=== PATIENT | female | born 1980 | race Caucasian/White ===

== ENCOUNTER 2019-04-07 21:40 | Inpatient (IN) | payer OTHER ==
--- NOTE | 2019-04-07 21:55 | PDOC ---
Attending Attestation - Resident Resident Name: Fouzia Méndez - ED Attending Attestation I have performed the following: I have examined & evaluated the patient, The case was reviewed & discussed with the resident, I agree w/resident's findings & plan - HPI HPI: 04/08/19 02:31 see resident hpi - Physicial Exam PE: 04/08/19 02:31 agree with resident exam - Medical Decision Making 04/08/19 02:31 38-year-old female with upper abdominal pain vomiting and diarrhea Due to abdominal tenderness and leukocytosis CT scan of the abdomen and pelvis was ordered Multiple attempts were made to perform a CT scan which patient adamantly refused to screaming at the top of her lungs stating leave me alone Patient states she is too scared to get the test done Right upper quadrant ultrasound confirms cholecystectomy state with no other significant abnormalities Due to persistent pain complaints, leukocytosis and inability to CT scan will admit for observation
[2019-04-07] MEDS ORDERED: ACETAMINOPHEN 1000 MG/100 ML VIAL (NON FORMULARY) IVPB ONE (21:59)
[2019-04-07] MEDS ORDERED: SODIUM CHLORIDE 1,000 ML IV STA ×2 (21:59→23:46)
[2019-04-07] MEDS ORDERED: FAMOTIDINE 20 MG/50 ML IVPB 20 MG/50 ML MG IVPB ONE ×2 (21:59→22:48)
[2019-04-07 22:35] VITALS: BMI 32.0
[2019-04-07] MEDS ORDERED: ONDANSETRON 4 MG/2 ML VIAL IVPB ONE (22:43)
[2019-04-07] MEDS ORDERED: ONDANSETRON 4 MG/2 ML VIAL ONE (22:48)
[2019-04-07] MEDS ORDERED: ACETAMINOPHEN INJECTION 100 ML IVPB ONE (22:48)
[2019-04-07 23:05] LABS: BASO % 0.5 % (0-2.0); EOS % 0.2 % (0-4.5); HEMATOCRIT 44.1 % (32.4-45.2); HEMOGLOBIN 14.6 GM/dL (10.7-15.3); LYMPH % 19.5 % (8-40); MCH 30.9 pg (25.7-33.7); MCHC 33.1 g/dl (32.0-36.0); MEAN CELL VOLUME 93.2 fl (80-96); MONO % 5.9 % (3.8-10.2); NEUT % 73.9 % (42.8-82.8); RBC 4.74 M/mm3 (3.60-5.2); RDW 13.7 % (11.6-15.6); WHITE BLOOD COUNT 16.6 K/mm3 (4.0-10.0)
--- NOTE | 2019-04-07 23:20 | PDOC ---
History of Present Illness - General Chief Complaint: Nausea/Vomiting Stated Complaint: ABD PAIN Time Seen by Provider: 04/07/19 21:52 History Source: Patient Exam Limitations: No Limitations - History of Present Illness Travel History: No Initial Comments: 04/07/19 23:03 38y F with PMH of Cholecystecomy, Appendectomy presenting to ED with complaints of nausea, vomiting and diarrhea that began today at around 11am. Pt states the pain is sharp, in the lower abdomen but is diffuse, associated with nausea and nbnbn emesis. She states that she has also been having loose stools and has been using the bathroom "a lot'. No blood in the stool. She denies recent travel , sick contacts, alcohol use, back pain, chest pain, headaches. She also endorses redness to her back which is slightly itchy; denies bug bites, history of stds, new medications. Denies sore throat, throat swelling. PMD: Kush Cole PMH: none PSH: see hpi Meds: none Allergies: reglan, toradol (hives) Social: denies Past History - Past Medical History Allergies/Adverse Reactions: Allergies Allergy/AdvReac Type Severity Reaction Status Date / Time metoclopramide HCl Allergy Intermediate Itching Verified 04/08/19 01:37 [From Reglan] ketorolac [From Toradol] Allergy Mild Hives Verified 04/08/19 01:37 Home Medications: Ambulatory Orders Ondansetron [Zofran *Odt*] 8 mg SL TID PRN #14 od.tablet 01/28/14 Vitamins (Sjr) - 1 tab PO DAILY 02/02/14 Oxycodone HCl/Acetaminophen [Percocet 5-325 mg Tablet -] 1 tab PO Q4H PRN Pantoprazole Sodium [Protonix] 40 mg PO DAILY 02/26/14 Anemia: No Asthma: No Cancer: No Cardiac Disorders: No CVA: No COPD: No CHF: No Dementia: No Diabetes: No GI Disorders: Yes (Hyperemesis gravidarum) Disorders: No HTN: No Hypercholesterolemia: No Kidney Stones: Yes Liver Disease: No Psychiatric Problems: Yes (DEPRESSION) Seizures: No Thyroid Disease: No - Surgical History Abdominal Surgery: Yes Appendectomy: Yes Cardiac Surgery: No Cholecystectomy: No Lung Surgery: No Neurologic Surgery: No Orthopedic Surgery: No - Reproductive History (#): 5 Para: 3 Cervical CA: No Dysfunctional Uterine Bleeding: No Ectopic : Yes Endometrial CA: No PID: No Polycystic Ovaries: No Therapeutic (s) & number: Yes (2) Tubal Ligation: No Spontaneous : 2 - Immunization History Immunization Up to Date: No - Psycho Social/Smoking Cessation Hx Smoking Status: No Smoking History: Never smoked Have you smoked in the past 12 months: No Number of Cigarettes Smoked Daily: 10 If you are a former smoker, when did you quit?: 08/2013 Cigars Per Day: 0 Information on smoking cessation initiated: No 'Breaking Loose' booklet given: 12/01/13 Hx Alcohol Use: No Drug/Substance Use Hx: No Substance Use Type: None Hx Substance Use Treatment: Yes Abd/GI Specific PMHX - Complaint Specific PMHX Hepatitis: No Pancreatitis: No Review of Systems - Review of Systems Constitutional: Yes: Chills. No: Fever HEENTM: No: Symptoms Reported Respiratory: Yes: Shortness of Breath Cardiac (ROS): No: Chest Pain, Lightheadedness, Palpitations, Syncope ABD/GI: Yes: See HPI : No: Symptoms Reported Musculoskeletal: No: Symptoms Reported Integumentary: Yes: See HPI Neurological: No: Symptoms reported *Physical Exam - Vital Signs Last Vital Signs Temp Pulse Resp BP Pulse Ox 98.5 F 67 20 144/105 H 98 04/07/19 22:29 04/07/19 22:29 04/07/19 22:29 04/07/19 22:29 04/07/19 22:29 - Physical Exam General Appearance: Yes: Appropriately Dressed, Severe Distress, Obese HEENT: positive: EOMI, MORIAH, Normal ENT Inspection Neck: positive: Trachea midline, Supple. negative: Lymphadenopathy (R), Lymphadenopathy (L) Respiratory/Chest: positive: Lungs Clear, Normal Breath Sounds. negative: Crackles, Rales, Rhonchi, Stridor, Wheezing Cardiovascular: positive: Regular Rhythm, Regular Rate, S1, S2. negative: Edema , JVD, Murmur Vascular Pulses: Dorsalis-Pedis (R): 2+, Doralis-Pedis (L): 2+ Gastrointestinal/Abdominal: positive: Normal Bowel Sounds, Soft, Tenderness ( diffuse, greatest in epigastrum). negative: Guarding, Rebound Musculoskeletal: negative: CVA Tenderness Extremity: positive: Normal Capillary Refill. negative: Swelling, Calf Tenderness, Erythema Integumentary: positive: Normal Color, Dry, Warm, Erythema (upper back and hands ) Neurologic: positive: mechanical supervisor II-XII NML intact, Fully Oriented, Alert, Normal Mood/ Affect, Normal Response, Motor Strength 10/26 ED Treatment Course - LABORATORY CBC & Chemistry Diagram: 04/07/19 22:50 04/07/19 22:50 Medical Decision Making - Medical Decision Making 04/08/19 00:05 38y F with pmh of cholecystectomy, appendectomy presenting to ED with complaints of abdominal pain, n/v/d that started today. vitals: wnl ddx includes but not limited to colitis, GE, , cholangitis, viral illness, atypical acs pt denies drug use. -cbc, cmp,lipase, lactate, ua, ucx, ekg, trop. -ofirmev, pepcid, fluids pt refused EKG. leukocytosis and elevated lactate; CTAP IV contrast screaming in pain, 4mg iv morphine. 04/08/19 04:[address] scan. Multiple attempts were made to have patient understand importance of study but patient kept refusing and seen leaving CT room. Ativan ordered but patient would not stay in Ct, cancelled ativan order. RAN wadsworth ordered: s/p cholecystectomy utox ordered. upon chart review, it was noted patient has history of opiate use. tox will show positive opiates because opiates were given here. could have Cannabinoid hyperemesis syndrome or opiate withdrawal utox positive for opiates and marijuana pt states she continues to be in pain. will order benadryl. will benefit from admission to control pain. 04/08/19 04:54 KUB, blood cultures and zosyn ordered for admitting team. Discharge - Discharge Information Problems reviewed: Yes Clinical Impression/Diagnosis: Intractable abdominal pain Nausea & vomiting Qualifiers: Vomiting type: unspecified Vomiting Intractability: unspecified Qualified Code( s): R11.2 - Nausea with vomiting, unspecified Condition: Stable - Admission Yes - Follow up/Referral - Patient Discharge Instructions - Post Discharge Activity
[2019-04-07 23:35] LABS: ALBUMIN 4.5 g/dl (3.4-5.0); ALK PHOS 80 U/L (45-117); ANION GAP 11 MMOL/L (8-16); BILIRUBIN,TOTAL 0.6 mg/dL (0.2-1); BLOOD UREA NITROGEN 8.8 mg/dL (7-18); CALCIUM 10.8 mg/dL (8.5-10.1); CHLORIDE 105 mmol/L (98-107); CO2 24 mmol/L (21-32); CREATININE 1.1 mg/dL (0.55-1.3); GLUCOSE,RANDOM 147 mg/dL (74-106); LIPASE 297 U/L (73-393); POTASSIUM 3.6 mmol/L (3.5-5.1); SGOT/AST 11 U/L (15-37); SGPT/ALT 15 U/L (13-61); SODIUM 140 mmol/L (136-145); TOT PROT 8.2 g/dl (6.4-8.2)
[2019-04-07 23:40] LABS: PLATELET ESTIMATE ADEQUATE
[2019-04-08] MEDS ORDERED: morphine CARPU-JECT 4 MG/1 ML DISP.SYRIN IVPUSH ONE (00:02)
[2019-04-08] MEDS ORDERED: morphine SULFATE 4 MG/ML VIAL ONE (00:19)
[2019-04-08] MEDS ORDERED: LORazepam 2 MG/ML SDV VIAL ONE (01:40)
[2019-04-08 03:06] LABS: EPI CELLS 0.9 /HPF (0-5/HPF); HYALINE CASTS 0 /lpf (0-8); URINE APPEARANCE CLEAR; URINE BACTERIA 2.9 /hpf (NEGATIVE); URINE BILIRUBIN NEGATIVE (NEGATIVE); URINE COLOR YELLOW; URINE GLUCOSE (UA) 1+ (NEGATIVE); URINE KETONE 1+ (NEGATIVE); URINE LEUK ESTERASE NEGATIVE (NEGATIVE); URINE NITRITE NEGATIVE (NEGATIVE); URINE PROTEIN 2+ (NEGATIVE); URINE RBC 1 /hpf (0-4); URINE UROBILINOGEN 0.2 mg/dL (0.2-1.0); URINE WBC 0 /hpf (0-5)
[2019-04-08 03:35] LABS: COCAINE, UR NEGATIVE ng/ml (CUTOFF=300); METHADONE, UR NEGATIVE ng/ml (CUTOFF=300); PHENCYCLIDINE,URINE NEGATIVE ng/ml (CUTOFF=25); URINE AMPHETAMINES NEGATIVE ng/ml (CUTOFF=500); URINE BARBITURATES NEGATIVE ng/ml (CUTOFF=200); URINE BENZODIAZEPINES NEGATIVE ng/ml (CUTOFF=200)
[2019-04-08 03:36] LABS: OPIATES, URI POSITIVE ng/ml (CUTOFF=300)
[2019-04-08] MEDS ORDERED: PIPERACILLIN/TAZOB 3.375 GM 3.375 GM in DEXTROSE 5%-WATER - 50 ML IVPB ONE (04:53)
--- NOTE | 2019-04-08 05:13 | PN ---
Teaching Attending Note Name of Resident: Nat Liao ATTENDING PHYSICIAN STATEMENT I saw and evaluated the patient. I reviewed the resident's note and discussed the case with the resident. I agree with the resident's findings and plan as documented. SUBJECTIVE: Patient is a 38 year old woman with PMH of Depression, Nephrolithiasis, Tobacco use, Anxiety, Polysubstance abuse (xanax, valium, opioids), Cholecystecomy and Appendectomy presenting to ER with complaints of nausea, vomiting and diarrhea that began today at around 11am. Patient states the pain is sharp, in the lower abdomen but is diffuse, associated with nausea and vomiting. She states that she has also been having loose stools and has been using the bathroom "a lot'. No blood in the stool. She denies recent travel, sick contacts, alcohol use, back pain, chest pain, headaches. Denies eating any stale food. She also has redness to her back which is slightly itchy; denies bug bites, history of STDs or recent new medications. Denies sore throat or throat swelling. While in the ER, multiple attempts were made to perform a CT scan which patient adamantly refused to screaming at the top of her lungs stating leave me alone - patient states she is too scared to get the test done. Right upper quadrant ultrasound confirms cholecystectomy with no other significant abnormalities. FH of DM and Heart disease. LMP was 2 weeks ago. OBJECTIVE: Alert Vital Signs Period Temp Pulse Resp BP Sys/Singh Pulse Ox Last 24 Hr 98.5 F 67 20 144/105 98 HEENT: No Jaundice, eye redness or discharge, PERRLA, EOMI. Normocephalic, atraumatic. External ears are normal and hearing is grossly intact. No nasal discharge. Neck: Supple, nontender. No palpable adenopathy or thyromegaly. No JVD Chest: Good effort. Clear to auscultation and percussion. Heart: Regular. No S3, rub or murmur Abdomen: Not distended, soft, diffuse tenderness and no HSM. No rebound or guarding. Normal bowel sounds. Ext: Peripheral pulses intact. No leg edema. Skin: Warm and dry. No petechiae, rash or ecchymosis. Neuro: Alert. Oriented x3. CN 2-12 grossly intact. Sensation grossly intact in all four extremities and DTR are symmetric. Psych: Erratic behaviour. Appropriate mood and affect. Poor insight. Denies suicidal or homicidal ideation. Home Medications Medication Instructions Recorded Ondansetron [Zofran *Odt*] 8 mg SL TID PRN #14 od.tablet 01/28/14 Vitamins (Sjr) - 1 tab PO DAILY 02/02/14 Oxycodone HCl/Acetaminophen 1 tab PO Q4H PRN 02/26/14 [Percocet 5-325 mg Tablet -] Pantoprazole Sodium [Protonix] 40 mg PO DAILY 02/26/14 Abnormal Lab Results 04/07/19 04/07/19 04/07/19 22:50 22:50 22:50 WBC 16.6 H Absolute Neuts (auto) 12.2 H Random Glucose 147 H Lactic Acid 2.7 H* Calcium 10.8 H AST 11 L Urine Protein Urine Glucose (UA) Urine Ketones Opiates Screen U Marijuana (THC) Screen 04/08/19 04/08/19 02:00 02:00 WBC Absolute Neuts (auto) Random Glucose Lactic Acid Calcium AST Urine Protein 2+ H Urine Glucose (UA) 1+ H Urine Ketones 1+ H Opiates Screen Positive A* U Marijuana (THC) Screen Positive A* ASSESSMENT AND PLAN: 1. Abdominal pain syndrome - Urine toxicology revealed opiates and marijuana. While clinical features may signal drug withdrawal syndrome or marijuana hyperemesis - she has had multiple ER visits with similar symptoms. However this time she also has leukocytosis and lactic acidosis, but is afebrile. Blood cultures being done and patient started on IV Zosyn. Will continue IV NS, trend lactic acid and use morphine for pain control. Get HbA1c. Patient refused abdomen/pelvis CT. Also refused EKG. KUB didnot reveal any acute abnormality. Consult GI and ID. Will continue to attempt to convince patient to get CT abdomen/pelvis to rule out mesenteric ischemia/colitis. Will repeat serum calcium after hydration, and if still high will get vitamin D level and PTH. Will repeat UA and if proteinuria persists will do nephrologic work up. Will continue comprehensive care for all of patients comorbid conditions. 2. Obesity Counseled on the risks associated with obesity. Will provide patient all the necessary assistance, counseling and positive reinforcement to facilitate weight loss. Consult protective signal operations supervisor. 3. Tobacco Use Counseled on risks associated with tobacco use. We will provide patient all the necessary assistance to facilitate smoking cessation and prescribe Nicotine patch. 4. Polysubstance abuse - Monitor closely for drug withdrawal. Implement seizure , fall and aspiration precautions. Counseled patient about abstaining from illicit drug use. Will consult air pollution specialist and refer to drug detox upon discharge. 5. DVT prophylaxis - Lovenox 40 mg SQ q 24 hours. 6. Advance directives - Full code
[2019-04-08] MEDS ORDERED: SODIUM CHLORIDE 1,000 ML IV SCH (06:00)
--- NOTE | 2019-04-08 06:08 | CONSULT ---
Consultation: REQUESTING PROVIDER: CONSULT REQUEST: We have been asked to medically evaluate this patient for ( specify). HISTORY OF PRESENT ILLNESS: REVIEW OF SYSTEMS: CONSTITUTIONAL: Absent: fever, chills, diaphoresis, generalized weakness, malaise, loss of appetite, weight change HEENT: Absent: rhinorrhea, nasal congestion, throat pain, throat swelling, difficulty swallowing, mouth swelling, ear pain, eye pain, visual changes CARDIOVASCULAR: Absent: chest pain, syncope, palpitations, irregular heart rate, lightheadedness , peripheral edema RESPIRATORY: Absent: cough, shortness of breath, dyspnea with exertion, orthopnea, wheezing, stridor, hemoptysis GASTROINTESTINAL: Absent: abdominal pain, abdominal distension, nausea, vomiting, diarrhea, constipation, melena, hematochezia GENITOURINARY: Absent: dysuria, frequency, urgency, hesitancy, hematuria, flank pain, genital pain MUSCULOSKELETAL: Absent: myalgia, arthralgia, joint swelling, back pain, neck pain SKIN: Absent: rash, itching, pallor HEMATOLOGIC/IMMUNOLOGIC: Absent: easy bleeding, easy bruising, lymphadenopathy, frequent infections ENDOCRINE: Absent: unexplained weight gain, unexplained weight loss, heat intolerance, cold intolerance NEUROLOGIC: Absent: headache, focal weakness or paresthesias, dizziness, unsteady gait, seizure, mental status changes, bladder or bowel incontinence PSYCHIATRIC: Absent: anxiety, depression, suicidal or homicidal ideation, hallucinations. PHYSICAL EXAMINATION Vital Signs - 24 hr 04/07/19 22:29 Temperature 98.5 F Pulse Rate 67 Respiratory 20 Rate Blood Pressure 144/105 H O2 Sat by Pulse 98 Oximetry (%) GENERAL: Awake, alert, and fully oriented, in no acute distress. HEAD: Normal with no signs of trauma. EYES: Pupils equal, round and reactive to light, extraocular movements intact, sclera anicteric, conjunctiva clear. No lid lag. EARS, NOSE, THROAT: Ears normal, nares patent, oropharynx clear without exudates. Moist mucous membranes. NECK: Normal range of motion, supple without lymphadenopathy, JVD, or masses. LUNGS: Breath sounds equal, clear to auscultation bilaterally. No wheezes, and no crackles. No accessory muscle use. HEART: Regular rate and rhythm, normal S1 and S2 without murmur, rub or gallop. ABDOMEN: Soft, nontender, not distended, normoactive bowel sounds, no guarding, no rebound, no masses. No hepatomegaly or splenomegaly. MUSCULOSKELETAL: Normal range of motion at all joints. No bony deformities or tenderness. No CVA tenderness. UPPER EXTREMITIES: 2+ pulses, warm, well-perfused. No cyanosis. No clubbing. Cap refill <2 seconds. No peripheral edema. LOWER EXTREMITIES: 2+ pulses, warm, well-perfused. No calf tenderness. No peripheral edema. NEUROLOGICAL: Cranial nerves II-XII intact. Normal speech. Normal gait. PSYCHIATRIC: Cooperative. Good eye contact. Appropriate mood and affect. SKIN: Warm, dry, normal turgor, no rashes or lesions noted. Laboratory Results - last 24 hr 04/07/19 04/07/19 04/07/19 22:50 22:50 22:50 WBC 16.6 H RBC 4.74 Hgb 14.6 Hct 44.1 D MCV 93.2 MCH 30.9 MCHC 33.1 RDW 13.7 Plt Count No Result Required. Absolute Neuts (auto) 12.2 H Neutrophils % 73.9 Lymphocytes % 19.5 D Monocytes % 5.9 Eosinophils % 0.2 Basophils % 0.5 Nucleated RBC % 0 Platelet Estimate Adequate Platelet Comment Slide scanned. Sodium 140 Potassium 3.6 Chloride 105 Carbon Dioxide 24 Anion Gap 11 BUN 8.8 Creatinine 1.1 Est GFR (CKD-EPI)AfAm 73.76 Est GFR (CKD-EPI)NonAf 63.64 Random Glucose 147 H Lactic Acid Calcium 10.8 H Total Bilirubin 0.6 AST 11 L ALT 15 Alkaline Phosphatase 80 Troponin I < 0.02 Total Protein 8.2 Albumin 4.5 Lipase 297 Serum , Qual Negative Urine Color Urine Appearance Urine pH Ur Specific [place] Urine Protein Urine Glucose (UA) Urine Ketones Urine Blood Urine Nitrite Urine Bilirubin Urine Urobilinogen Ur Leukocyte Esterase Urine WBC (Auto) Urine RBC (Auto) Urine Casts (Auto) U Epithel Cells (Auto) Urine Bacteria (Auto) Opiates Screen Methadone Screen Barbiturate Screen Phencyclidine Screen Ur Amphetamines Screen MDMA (Ecstasy) Screen Benzodiazepines Screen Cocaine Screen U Marijuana (THC) Screen 04/07/19 04/08/19 04/08/19 22:50 02:00 02:00 WBC RBC Hgb Hct MCV MCH MCHC RDW Plt Count Absolute Neuts (auto) Neutrophils % Lymphocytes % Monocytes % Eosinophils % Basophils % Nucleated RBC % Platelet Estimate Platelet Comment Sodium Potassium Chloride Carbon Dioxide Anion Gap BUN Creatinine Est GFR (CKD-EPI)AfAm Est GFR (CKD-EPI)NonAf Random Glucose Lactic Acid 2.7 H* Calcium Total Bilirubin AST ALT Alkaline Phosphatase Troponin I Total Protein Albumin Lipase Serum , Qual Urine Color Yellow Urine Appearance Clear Urine pH 8.0 Ur Specific [place] 1.011 Urine Protein 2+ H Urine Glucose (UA) 1+ H Urine Ketones 1+ H Urine Blood Trace Urine Nitrite Negative Urine Bilirubin Negative Urine Urobilinogen 0.2 Ur Leukocyte Esterase Negative Urine WBC (Auto) 0 Urine RBC (Auto) 1 Urine Casts (Auto) 0 U Epithel Cells (Auto) 0.9 Urine Bacteria (Auto) 2.9 Opiates Screen Positive A* Methadone Screen Negative Barbiturate Screen Negative Phencyclidine Screen Negative Ur Amphetamines Screen Negative MDMA (Ecstasy) Screen Negative Benzodiazepines Screen Negative Cocaine Screen Negative U Marijuana (THC) Screen Positive A* Active Medications Generic Name Dose Route Start Last Admin Trade Name Freq PRN Reason Stop Dose Admin Enoxaparin Sodium 40 mg 04/08/19 10:00 Lovenox - SQ DAILY MINA Sodium Chloride 1,000 mls @ 100 mls/hr 04/08/19 06:00 Normal Saline - IV ASDIR MINA Piperacillin Sod/Tazobactam 50 mls @ 100 mls/hr 04/08/19 13:00 Sod 3.375 gm/ Dextrose IVPB Q8H-IV MINA Protocol ASSESSMENT/PLAN: Dispo: We will continue to follow the patient. Thank you for this consultative opportunity. Visit type - Emergency Visit Emergency Visit: Yes Care time: The patient presented to the Emergency Department on the above date and was hospitalized for further evaluation of their emergent condition. - New Patient This patient is new to me today: Yes Date on this admission: 04/08/19 - Critical Care Critical Care patient: No ATTENDING PHYSICIAN STATEMENT I saw and evaluated the patient. I reviewed the resident's note and discussed the case with the resident. I agree with the resident's findings and plan as documented. SUBJECTIVE: OBJECTIVE: ASSESSMENT AND PLAN:
--- NOTE | 2019-04-08 06:33 | HP ---
CHIEF COMPLAINT: PCP: Dr. Kush Cole HISTORY OF PRESENT ILLNESS: 38 y/o/f with PMHx of nephrolithiasis, polysubstance abuse, psych disorder here for abd pain and vomiting. She states her pain started at 11am yesterday while she was waiting for the bus. She denies any inciting trauma. She has vomiting multiple times at home and in the ED, all with no blood, no bile. She states her abd pain is in the suprapubic region and sharp. She denies any diarrhea, states she had a normal bowel movement yesterday morning, no blood in the stool. She had a similar episode of vomiting and abd pain about a month ago and states she was seen in the [facility] ED and discharged after pain management. She denies any chest pain, SOB, fever, dysuria, cough, sore throat. During the course of the interview patient started to complain of extreme pain in her right leg, when I left the room to speak with ED staff she calmed down. On returning the the room patient started to complain of pain in her left leg, again calmed down after I left the room. Subsequently, on returning to the room patient started to complain she immediately had to go urinate and complained of severe abd pain but again calmed down after I left the room. ER course was notable for: (1) Patient refused EKG (2) Patient refused CT scan Recent Travel: denies PAST MEDICAL HISTORY: nephrolithiasis, polysubstance abuse, psych disorder PAST SURGICAL HISTORY: cholecystectomy, appendectomy, Social History: Smoking: denies Alcohol: denies Drugs: Marijuana multiple times a week, denies other drugs Recently moved to [place] from [place], living with her sister currently, unemployed, previously worked in [employer] - 2 weeks ago FamHx: denies significant family history, states parents are healthy Allergies metoclopramide HCl [From Reglan] Allergy (Intermediate, Verified 04/08/19 01:37) Itching ketorolac [From Toradol] Allergy (Mild, Verified 04/08/19 01:37) Hives HOME MEDICATIONS: Home Medications Medication Instructions Recorded Ondansetron [Zofran *Odt*] 8 mg SL TID PRN #14 od.tablet 01/28/14 Vitamins (Sjr) - 1 tab PO DAILY 02/02/14 Oxycodone HCl/Acetaminophen 1 tab PO Q4H PRN 02/26/14 [Percocet 5-325 mg Tablet -] Pantoprazole Sodium [Protonix] 40 mg PO DAILY 02/26/14 REVIEW OF SYSTEMS Constitutional: chills denies fever, weakness HEENT: denies neck pain, blurry vision Cardio: denies palpitations, chest pain Resp: denies wheezing, SOB GI: abd pain, nausea, vomiting denies diarrhea, constipation : denies dysuria, hematuria MSK: denies joint pain, neck pain SKIN: denies rashes Neuro: denies loss of consciousness, headache, dizziness, numbness PHYSICAL EXAMINATION Vital Signs - 24 hr 04/07/19 22:29 Temperature 98.5 F Pulse Rate 67 Respiratory 20 Rate Blood Pressure 144/105 H O2 Sat by Pulse 98 Oximetry (%) GENERAL: moderate distress. Awake, alert, and fully oriented HEAD: Normal with no signs of trauma. EYES: PERRL, EOMI EARS, NOSE, THROAT: Dry Mucous membranes. Ears normal, nares patent, oropharynx clear without exudates NECK: Normal range of motion, supple without lymphadenopathy, JVD, or masses. LUNGS: Breath sounds equal, clear to auscultation bilaterally. No wheezes, and no crackles. No accessory muscle use. HEART: Regular rate and rhythm, normal S1 and S2 without murmur, rub or gallop. ABDOMEN: RUQ tenderness to palpation, Soft, not distended, normoactive bowel sounds, no guarding, no rebound, no masses. No hepatomegaly or splenomegaly. MUSCULOSKELETAL: Left CVA tenderness. Normal range of motion at all joints. No bony deformities or tenderness. UPPER EXTREMITIES: 2+ pulses, warm, well-perfused. No cyanosis. No clubbing. No peripheral edema. LOWER EXTREMITIES: 2+ pulses, warm, well-perfused. No calf tenderness. No peripheral edema. NEUROLOGICAL: Normal speech. Normal gait. PSYCHIATRIC: Anxious, agitated SKIN: Warm, dry, normal turgor, no rashes or lesions noted, normal capillary refill. Laboratory Results - last 24 hr 04/07/19 04/07/19 04/07/19 22:50 22:50 22:50 WBC 16.6 H RBC 4.74 Hgb 14.6 Hct 44.1 D MCV 93.2 MCH 30.9 MCHC 33.1 RDW 13.7 Plt Count No Result Required. Absolute Neuts (auto) 12.2 H Neutrophils % 73.9 Lymphocytes % 19.5 D Monocytes % 5.9 Eosinophils % 0.2 Basophils % 0.5 Nucleated RBC % 0 Platelet Estimate Adequate Platelet Comment Slide scanned. Sodium 140 Potassium 3.6 Chloride 105 Carbon Dioxide 24 Anion Gap 11 BUN 8.8 Creatinine 1.1 Est GFR (CKD-EPI)AfAm 73.76 Est GFR (CKD-EPI)NonAf 63.64 Random Glucose 147 H Lactic Acid Calcium 10.8 H Total Bilirubin 0.6 AST 11 L ALT 15 Alkaline Phosphatase 80 Troponin I < 0.02 Total Protein 8.2 Albumin 4.5 Lipase 297 Serum , Qual Negative Urine Color Urine Appearance Urine pH Ur Specific [place] Urine Protein Urine Glucose (UA) Urine Ketones Urine Blood Urine Nitrite Urine Bilirubin Urine Urobilinogen Ur Leukocyte Esterase Urine WBC (Auto) Urine RBC (Auto) Urine Casts (Auto) U Epithel Cells (Auto) Urine Bacteria (Auto) Opiates Screen Methadone Screen Barbiturate Screen Phencyclidine Screen Ur Amphetamines Screen MDMA (Ecstasy) Screen Benzodiazepines Screen Cocaine Screen U Marijuana (THC) Screen 04/07/19 04/08/19 04/08/19 22:50 02:00 02:00 WBC RBC Hgb Hct MCV MCH MCHC RDW Plt Count Absolute Neuts (auto) Neutrophils % Lymphocytes % Monocytes % Eosinophils % Basophils % Nucleated RBC % Platelet Estimate Platelet Comment Sodium Potassium Chloride Carbon Dioxide Anion Gap BUN Creatinine Est GFR (CKD-EPI)AfAm Est GFR (CKD-EPI)NonAf Random Glucose Lactic Acid 2.7 H* Calcium Total Bilirubin AST ALT Alkaline Phosphatase Troponin I Total Protein Albumin Lipase Serum , Qual Urine Color Yellow Urine Appearance Clear Urine pH 8.0 Ur Specific [place] 1.011 Urine Protein 2+ H Urine Glucose (UA) 1+ H Urine Ketones 1+ H Urine Blood Trace Urine Nitrite Negative Urine Bilirubin Negative Urine Urobilinogen 0.2 Ur Leukocyte Esterase Negative Urine WBC (Auto) 0 Urine RBC (Auto) 1 Urine Casts (Auto) 0 U Epithel Cells (Auto) 0.9 Urine Bacteria (Auto) 2.9 Opiates Screen Positive A* Methadone Screen Negative Barbiturate Screen Negative Phencyclidine Screen Negative Ur Amphetamines Screen Negative MDMA (Ecstasy) Screen Negative Benzodiazepines Screen Negative Cocaine Screen Negative U Marijuana (THC) Screen Positive A* ASSESSMENT/PLAN: 38 y/o/f with PMHx of nephrolithiasis, polysubstance abuse, psych disorder here for abd pain and vomiting since yesterday. 1)Abdominal pain - concern for ischemic vs. obstructive vs. infectious cause -Lactic acid elevated 2.7 -> 2.5, trend -WBC elevated at 16.6, trend -Consider speaking with patient and attempting CT abd&pelvis w/contrast again -Renal U/S ordered to r/o nephrolithiasis -Zosyn Q8 -NPO -UA not impressive for UTI 2)Anxiety/Agitation -Pysch consult placed, Dr. Parikh -Utox positive for Marijuana and Opiates. -Utox obtained after opiates given in ED, patient denies opiate use however, has history of polysubstance abuse 3)Prophylaxis -Lovenox 4)FEN -NS@100mls/hr -NPO 5)Disposition -admitted to med surg Visit type - Emergency Visit Emergency Visit: Yes ED Registration Date: 04/08/19 Care time: The patient presented to the Emergency Department on the above date and was hospitalized for further evaluation of their emergent condition. - New Patient This patient is new to me today: Yes Date on this admission: 04/08/19 - Critical Care Critical Care patient: No ATTENDING PHYSICIAN STATEMENT I saw and evaluated the patient. I reviewed the resident's note and discussed the case with the resident. I agree with the resident's findings and plan as documented. SUBJECTIVE: OBJECTIVE: ASSESSMENT AND PLAN:
[2019-04-08] MEDS ORDERED: PIPERACILLIN/TAZOB 3.375 GM 3.375 GM/50 ML BAG IVPB ONE (06:34)
[2019-04-08] MEDS ORDERED: ACETAMINOPHEN 1000 MG/100 ML VIAL (NON FORMULARY) IVPB PRN (07:46)
[2019-04-08 08:25] LABS: HEMATOCRIT 44.3 % (32.4-45.2); HEMOGLOBIN 14.9 GM/dL (10.7-15.3); MCH 31.5 pg (25.7-33.7); MCHC 33.7 g/dl (32.0-36.0); MEAN CELL VOLUME 93.6 fl (80-96); MEAN PLT VOLUME 8.8 fl (7.5-11.1); PLATELET COUNT 336 K/MM3 (134-434); RBC 4.73 M/mm3 (3.60-5.2); RDW 13.6 % (11.6-15.6); WHITE BLOOD COUNT 13.2 K/mm3 (4.0-10.0)
[2019-04-08] MEDS ORDERED: ACETAMINOPHEN 325 MG TABLET (FP) PO PRN (09:00)
[2019-04-08 09:04] LABS: ANION GAP 14 MMOL/L (8-16); BLOOD UREA NITROGEN 7.6 mg/dL (7-18); CALCIUM 9.6 mg/dL (8.5-10.1); CHLORIDE 105 mmol/L (98-107); CO2 18 mmol/L (21-32); GLUCOSE,RANDOM 134 mg/dL (74-106); POTASSIUM 3.5 mmol/L (3.5-5.1); SODIUM 137 mmol/L (136-145)
[2019-04-08] MEDS ORDERED: clonazePAM 0.5 MG TABLET ONE (09:04)
[2019-04-08] MEDS ORDERED: clonazePAM 0.5 MG TABLET PO ONE (09:15)
[2019-04-08] MEDS ORDERED: PIPERACILLIN/TAZOB 3.375 GM 3.375 GM in DEXTROSE 5%-WATER - 50 ML IVPB SCH ×2 (10:00→13:00)
[2019-04-08] MEDS ORDERED: ENOXAPARIN NA (PORCINE) 40 MG/0.4 ML DISP.SYRIN SQ SCH (10:00)
[2019-04-08 10:36] VITALS: BP 162/96; PULSE 82; TEMP 98.7
[2019-04-08] MEDS ORDERED: HALOPERIDOL LACTATE 5 MG/ML IM ONE (12:38)
[2019-04-08] MEDS ORDERED: HALOPERIDOL LACTATE 5 MG/ML ONE (12:43)
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
== END 2019-04-08 13:15 | disposition home or self-care (01) | DRG 249 ==
LOC: JER 21:40 → JERBED 04-08 04:22
PROVIDERS: ADMIT Internal Medicine; ATTEND Internal Medicine
DX: R11.15 Cyclical vomiting syndrome unrelated to migraine (principal); F41.8 Other specified anxiety disorders; F12.20 Cannabis dependence, uncomplicated; F11.20 Opioid dependence, uncomplicated; E87.2 Acidosis; E66.9 Obesity, unspecified; Z68.33 Body mass index [BMI] 33.0-33.9, adult; R10.9 Unspecified abdominal pain; N20.0 Calculus of kidney; D72.829 Elevated white blood cell count, unspecified; R45.1 Restlessness and agitation; E83.52 Hypercalcemia
CPT/HCPCS: 36415; 71045-TC-FY; 74018-TC-FY; 74176-TC; 76705-TC; 76775-TC; 80048; 80053; 80307; 81003; 82330; 83036; 83605; 83690; 83970; 84443; 84484; 84703; 85025; 85027; 87040; 87086; 99283-25; J0131; J7030

== ENCOUNTER 2019-07-12 08:38 | Emergency (ER) | payer OTHER ==
[2019-07-12] MEDS ORDERED: morphine SULFATE 4 MG/ML VIAL ONE (08:46)
[2019-07-12] MEDS ORDERED: ONDANSETRON 4 MG/2 ML VIAL ONE (08:47)
[2019-07-12] MEDS ORDERED: morphine CARPU-JECT 4 MG/1 ML DISP.SYRIN IVPUSH ONE (08:52)
[2019-07-12] MEDS ORDERED: SODIUM CHLORIDE 1,000 ML IV STA ×2 (08:52→10:30)
[2019-07-12] MEDS ORDERED: ONDANSETRON 4 MG/2 ML VIAL IVPUSH ONE (08:52)
--- NOTE | 2019-07-12 08:59 | PDOC ---
History of Present Illness - General Chief Complaint: Back Pain Stated Complaint: PAIN - History of Present Illness Initial Comments: 07/12/19 08:53 Ms. Waldrop is a 38 yo female w/ pmh of appendectomy, cholecystectomy, anxiety, unspecified psychiatric disorder, and kidney stone 10 years ago who presents for evaluation of L sided back pain that she rates 10/10. Patient reports symptoms started last night however have progressively gotten worse throughout the night. Patient reports symptoms feel like her previous kidney stone. Denies any other symptoms at this time. The patient denies chest pain, shortness of breath, headache and dizziness. Denies fever, chills, nausea, vomit, diarrhea and constipation. Denies dysuria, frequency, urgency and hematuria. Past History - Past Medical History Allergies/Adverse Reactions: Allergies Allergy/AdvReac Type Severity Reaction Status Date / Time metoclopramide HCl Allergy Intermediate Itching Verified 07/12/19 08:47 [From Reglan] ketorolac [From Toradol] Allergy Mild Hives Verified 07/12/19 08:47 Home Medications: Ambulatory Orders Sulfamethoxazole/Trimethoprim [Bactrim Ds -] 1 tab PO BID #14 tablet 07/12/19 Anemia: No Asthma: No Cancer: No Cardiac Disorders: No CVA: No COPD: No CHF: No Dementia: No Diabetes: No GI Disorders: Yes (Hyperemesis gravidarum) Disorders: No HTN: No Hypercholesterolemia: No Kidney Stones: Yes Liver Disease: No Psychiatric Problems: Yes (DEPRESSION) Seizures: No Thyroid Disease: No - Surgical History Abdominal Surgery: Yes Appendectomy: Yes Cardiac Surgery: No Cholecystectomy: No Lung Surgery: No Neurologic Surgery: No Orthopedic Surgery: No - Reproductive History (#): 5 Para: 3 Cervical CA: No Dysfunctional Uterine Bleeding: No Ectopic : Yes Endometrial CA: No PID: No Polycystic Ovaries: No Therapeutic (s) & number: Yes (2) Tubal Ligation: No Spontaneous : 2 - Immunization History Immunization Up to Date: No - Psycho Social/Smoking Cessation Hx Smoking Status: No Smoking History: Never smoked Have you smoked in the past 12 months: No Number of Cigarettes Smoked Daily: 10 If you are a former smoker, when did you quit?: 08/2013 Cigars Per Day: 0 'Breaking Loose' booklet given: 12/01/13 Hx Alcohol Use: No Drug/Substance Use Hx: No Substance Use Type: None Hx Substance Use Treatment: Yes Review of Systems - Review of Systems Comments:: 07/12/19 08:56 GENERAL/CONSTITUTIONAL: No fever or chills. No weakness. HEAD, EYES, EARS, NOSE AND THROAT: No change in vision. No ear pain or discharge. No sore throat. CARDIOVASCULAR: No chest pain or shortness of breath RESPIRATORY: No cough, wheezing, or hemoptysis. GASTROINTESTINAL: No nausea, vomiting, diarrhea or constipation. GENITOURINARY: No dysuria, frequency, or change in urination. MUSCULOSKELETAL: +Lower left back pain as described. No joint or muscle swelling or pain. No neck pain. SKIN: No rash NEUROLOGIC: No headache, vertigo, loss of consciousness, or change in strength/ sensation. ENDOCRINE: No increased thirst. No abnormal weight change HEMATOLOGIC/LYMPHATIC: No anemia, easy bleeding, or history of blood clots. ALLERGIC/IMMUNOLOGIC: No hives or skin allergy. *Physical Exam - Physical Exam 07/12/19 08:56 GENERAL: Awake, alert, and fully oriented, in no acute distress HEAD: No signs of trauma, normocephalic, atraumatic EYES: PERRLA, EOMI, sclera anicteric, conjunctiva clear ENT: Auricles normal inspection, hearing grossly normal, nares patent, oropharynx clear without exudates. Moist mucosa NECK: Normal ROM, supple, no lymphadenopathy, JVD, or masses LUNGS: No distress, speaks full sentences, clear to auscultation bilaterally HEART: Regular rate and rhythm, normal S1 and S2, no murmurs, rubs or gallops, peripheral pulses normal and equal bilaterally. ABDOMEN: +L CVA tenderness. Soft, normoactive bowel sounds. No guarding, no rebound. No masses EXTREMITIES: Normal inspection, Normal range of motion, no edema. No clubbing or cyanosis. NEUROLOGICAL: Cranial nerves II through XII grossly intact. Normal speech, normal gait, no focal sensorimotor deficits SKIN: Warm, Dry, normal turgor, no rashes or lesions noted. ED Treatment Course - LABORATORY CBC & Chemistry Diagram: 07/12/19 08:33 07/12/19 08:33 Medical Decision Making - Medical Decision Making 07/12/19 08:58 Ms. Waldrop is a 38 yo female w/ pmh as described who presents for evaluation of symptoms concerning for UTI vs. nephrolithiasis vs. pyelonephritis. Patient evaluation started with CBC/CMP/UA/Urine Cx/serum preg. 07/12/19 13:13 CT negative for acute process. Patient noted to have UTI as below with corresponding elevated WBC. Will treat for pyelonephritis given patient's concurrent flank pain. Patient started on oral ABX in ED. Discharging to home. Laboratory Results - last 24 hr 07/12/19 07/12/19 07/12/19 08:33 08:33 08:33 WBC 15.4 H RBC 4.95 Hgb 15.3 Hct 45.5 H MCV 91.8 MCH 30.8 MCHC 33.6 RDW 13.3 Absolute Neuts (auto) 11.8 H Neutrophils % 76.8 Lymphocytes % 16.5 Monocytes % 6.1 Eosinophils % 0.0 D Basophils % 0.6 Nucleated RBC % 0 PT with INR 14.30 H INR 1.21 H PTT (Actin FS) 26.3 Sodium 133 L Potassium 3.6 Chloride 96 L Carbon Dioxide 20 L Anion Gap 17 H BUN 9.9 Creatinine 1.6 H Est GFR (CKD-EPI)AfAm 46.89 Est GFR (CKD-EPI)NonAf 40.46 Random Glucose 172 H Calcium 10.1 Total Bilirubin 0.4 AST 20 ALT 22 Alkaline Phosphatase 85 Total Protein 8.6 H Albumin 4.5 Serum , Qual Urine Color Urine Appearance Urine pH Ur Specific [place] Urine Protein Urine Glucose (UA) Urine Ketones Urine Blood Urine Nitrite Urine Bilirubin Urine Urobilinogen Ur Leukocyte Esterase Urine Casts (Auto) U Epithel Cells (Auto) Urine Bacteria (Auto) 07/12/19 07/12/19 08:33 11:50 WBC RBC Hgb Hct MCV MCH MCHC RDW Absolute Neuts (auto) Neutrophils % Lymphocytes % Monocytes % Eosinophils % Basophils % Nucleated RBC % PT with INR INR PTT (Actin FS) Sodium Potassium Chloride Carbon Dioxide Anion Gap BUN Creatinine Est GFR (CKD-EPI)AfAm Est GFR (CKD-EPI)NonAf Random Glucose Calcium Total Bilirubin AST ALT Alkaline Phosphatase Total Protein Albumin Serum , Qual Negative Urine Color Yellow Urine Appearance Clear Urine pH 8.0 Ur Specific [place] 1.019 Urine Protein 3+ H Urine Glucose (UA) Trace Urine Ketones 1+ H Urine Blood Trace Urine Nitrite Negative Urine Bilirubin Negative Urine Urobilinogen 0.2 Ur Leukocyte Esterase Negative Urine Casts (Auto) 36 U Epithel Cells (Auto) 12.5 Urine Bacteria (Auto) 866.2 Discharge - Discharge Information Problems reviewed: Yes Clinical Impression/Diagnosis: UTI (urinary tract infection) Qualifiers: Urinary tract infection type: site unspecified Hematuria presence: with hematuria Qualified Code(s): N39.0 - Urinary tract infection, site not specified ; R31.9 - Hematuria, unspecified Disposition: HOME - Follow up/Referral - Patient Discharge Instructions Patient Printed Discharge Instructions: DI for Kidney Infection Additional Instructions: You were evaluated today in the ER for your pain. We performed CT and laboratory evaluate and found that you have a kidney infection. We started you on antibiotics in the ER and sent a prescription to your pharmacy. Please take all medications as proscribed. Follow-up with primary care provider next week for further evaluation. You may take over the counter motrin or tylenol for pain. Return to ER if any further pain, fever, chills, or other concerning symptoms. - Post Discharge Activity
[2019-07-12] MEDS ORDERED: ACETAMINOPHEN 1000 MG/100 ML VIAL (NON FORMULARY) IVPB ONE (09:03)
[2019-07-12] MEDS ORDERED: LORazepam 2 MG/ML SDV VIAL ONE (09:04)
[2019-07-12 09:07] LABS: BASO % 0.6 % (0-2.0); HEMATOCRIT 45.5 % (32.4-45.2); HEMOGLOBIN 15.3 GM/dL (10.7-15.3); LYMPH % 16.5 % (8-40); MCH 30.8 pg (25.7-33.7); MCHC 33.6 g/dl (32.0-36.0); MEAN CELL VOLUME 91.8 fl (80-96); MEAN PLT VOLUME 8.3 fl (7.5-11.1); MONO % 6.1 % (3.8-10.2); NEUT % 76.8 % (42.8-82.8); PLATELET COUNT 479 K/MM3 (134-434); RBC 4.95 M/mm3 (3.60-5.2); RDW 13.3 % (11.6-15.6)
[2019-07-12 09:08] VITALS: BMI 31.8
[2019-07-12] MEDS ORDERED: ACETAMINOPHEN INJECTION 100 ML IVPB ONE (09:11)
--- NOTE | 2019-07-12 09:15 | PDOC ---
Attending Attestation - Resident Resident Name: Danie Givens - ED Attending Attestation I have performed the following: I have examined & evaluated the patient, The case was reviewed & discussed with the resident, I agree w/resident's findings & plan, Exceptions are as noted - HPI HPI: 07/12/19 09:12 38 F with h/o anxiety, depression, other psychiatric illness, polysubstance abuse, remote history of kidney stones, presenting to ED with L back pain. Pt states that she has chronic pain that acutely worsened today. Pt denies N/V. Denies F/C. Denies abdominal pain. In ED, pt is screaming for pain medication. Difficult to obtain additional history due to poor cooperation. - Physicial Exam PE: 07/12/19 09:14 GENERAL: Awake, alert, and fully oriented HEAD: No signs of trauma EYES: PERRLA, EOMI, sclera anicteric, conjunctiva clear ENT: Auricles normal inspection, hearing grossly normal, nares patent, oropharynx clear without exudates. Moist mucosa NECK: Nontender, no stepoffs, Normal ROM, supple, no lymphadenopathy, JVD, or masses LUNGS: Breath sounds equal, clear to auscultation bilaterally. No wheezes, and no crackles HEART: Regular rate and rhythm, normal S1 and S2, no murmurs, rubs or gallops ABDOMEN: Soft, nontender, normoactive bowel sounds. No guarding, no rebound. No masses EXTREMITIES: Normal range of motion, no edema. No clubbing or cyanosis. No cords, erythema, or tenderness NEUROLOGICAL: Cranial nerves II through XII intact. 5/5 strength and sensation in all extremities, Normal speech, normal gait, normal cerebellar function SKIN: Warm, Dry, normal turgor, no rashes or lesions noted. BACK: + L CVAT - Medical Decision Making 07/12/19 09:15 38 F with h/o kidney stones presenting with L flank pain. Pt screaming in ED, likely anxiety component. - Labs, UA - CT - IVF, pain control - Ativan for agitation and anxiety 07/12/19 13:21 UA with likely UTI Will tx for pyelo given L flank pain. Labs otherwise unremarkable Pt reassessed - now much more comfortable appearing, walking around ED Pt is well appearing, with normal vitals. Clinically stable for DC at this time. I discussed the physical exam findings, ancillary test results and final diagnoses with the patient. I answered all of the patient's questions. The patient was satisfied with the care received and felt comfortable with the discharge plan and treatment plan. The patient agrees to follow up with the primary care physician within 24-72 hours. Vital Signs - Vital Signs #1 Time: 13:22 Blood Pressure: 140/84 BP Location: Left Arm Blood Pressure Position: Sitting Pulse Rate: 84 Respiratory Rate: 16 O2 Sat by Pulse Oximetry (%): 100 Oxygen Delivery Method: Room Air
[2019-07-12 09:52] LABS: ALBUMIN 4.5 g/dl (3.4-5.0); BILIRUBIN,TOTAL 0.4 mg/dL (0.2-1); BLOOD UREA NITROGEN 9.9 mg/dL (7-18); CALCIUM 10.1 mg/dL (8.5-10.1); CREATININE 1.6 mg/dL (0.55-1.3); INR 1.21 (0.83-1.09); POTASSIUM 3.6 mmol/L (3.5-5.1); PROTHROMBIN TIME (PATIENT) 14.3 SEC (9.7-13.0); TOT PROT 8.6 g/dl (6.4-8.2)
[2019-07-12 09:55] LABS: ACTIVATED PTT 26.3 SECONDS (25.2-36.5)
[2019-07-12] MEDS ORDERED: FAMOTIDINE 20 MG/50 ML IVPB 20 MG/50 ML MG IVPB ONE ×2 (10:30→11:41)
[2019-07-12] MEDS ORDERED: MAG HYDROX/AL HYDROX/SIMETH 30 ML UNIT-DOSE CUP PO ONE (10:30)
[2019-07-12] MEDS ORDERED: MAG HYDROX/AL HYDROX/SIMETH 30 ML UNIT-DOSE CUP ONE (10:36)
[2019-07-12 13:06] LABS: EPI CELLS 12.5 /HPF (0-5/HPF); HYALINE CASTS 36 /lpf (0-8); URINE APPEARANCE CLEAR; URINE BACTERIA 866.2 /hpf (NEGATIVE); URINE BILIRUBIN NEGATIVE (NEGATIVE); URINE COLOR YELLOW; URINE GLUCOSE (UA) TRACE (NEGATIVE); URINE KETONE 1+ (NEGATIVE); URINE LEUK ESTERASE NEGATIVE (NEGATIVE); URINE NITRITE NEGATIVE (NEGATIVE); URINE PROTEIN 3+ (NEGATIVE); URINE UROBILINOGEN 0.2 mg/dL (0.2-1.0)
[2019-07-12] MEDS ORDERED: SULFAMETHOXAZOLE/TRIMETHOPRIM 800MG/160MG D.S. TABLET PO ONE (13:10)
[2019-07-12 13:34] LABS: WHITE BLOOD COUNT 15.4 K/mm3 (4.0-10.0)
[2019-07-12] MEDS ORDERED: SULFAMETHOXAZOLE/TRIMETHOPRIM 800MG/160MG D.S. TABLET ONE (13:46)
[2019-07-12 14:16] VITALS: BP 146/88; PULSE 89; TEMP 98
[2019-07-12 14:42] LABS: URINE WBC 32.3 /hpf (0-5)
--- NOTE | 2019-07-13 10:06 | EKG ---
Test Reason : Blood Pressure : / mmHG Vent. Rate : 079 BPM Atrial Rate : 079 BPM P-R Int : 138 ms QRS Dur : 080 ms QT Int : 390 ms P-R-T Axes : 061 001 037 degrees QTc Int : 447 ms NORMAL SINUS RHYTHM MINIMAL VOLTAGE CRITERIA FOR LVH, MAY BE NORMAL VARIANT BORDERLINE ECG WHEN COMPARED WITH ECG OF 28-OCT-2013 12:49, NO SIGNIFICANT CHANGE WAS FOUND Confirmed by AMIRA LAYNE MD ([id number]) on 07/13/2019 10:05:44 AM Referred By: Confirmed By:AMIRA LAYNE MD
== END 2019-07-12 14:00 | disposition home or self-care (01) ==
LOC: JER 08:38
PROC: 3E0337Z Introduction of Electrolytic and Water Balance Substance into Peripheral Vein, Percutaneous Approach (ICD-10-PCS; principal; 2019-07-12)
PROC: 3E033NZ Introduction of Analgesics, Hypnotics, Sedatives into Peripheral Vein, Percutaneous Approach (ICD-10-PCS; 2019-07-12)
PROC: 3E033NZ Introduction of Analgesics, Hypnotics, Sedatives into Peripheral Vein, Percutaneous Approach (ICD-10-PCS; 2019-07-12)
PROC: 3E033NZ Introduction of Analgesics, Hypnotics, Sedatives into Peripheral Vein, Percutaneous Approach (ICD-10-PCS; 2019-07-12)
PROC: 3E033GC Introduction of Other Therapeutic Substance into Peripheral Vein, Percutaneous Approach (ICD-10-PCS; 2019-07-12)
DX: N39.0 Urinary tract infection, site not specified (principal); N12 Tubulo-interstitial nephritis, not specified as acute or chronic; R31.9 Hematuria, unspecified; Z87.442 Personal history of urinary calculi; F41.9 Anxiety disorder, unspecified; Z90.49 Acquired absence of other specified parts of digestive tract; Z88.8 Allergy status to other drugs, medicaments and biological substances
CPT/HCPCS: 36415; 74176-TC; 80053; 81003; 84703; 85025; 85610; 85730; 87086; 93005; 93010; 96361; 96365; 96375; 99283-25; J0131; J7030

== ENCOUNTER 2019-07-14 12:20 | Emergency (ER) | payer OTHER ==
[2019-07-14 12:44] VITALS: BMI 32.8
--- NOTE | 2019-07-14 13:04 | PDOC ---
Rapid Medical Evaluation Chief Complaint: Pain Time Seen by Provider: 07/14/19 13:02 Medical Evaluation: Allergies Allergy/AdvReac Type Severity Reaction Status Date / Time metoclopramide HCl Allergy Intermediate Itching Verified 07/14/19 12:44 [From Reglan] ketorolac [From Toradol] Allergy Mild Hives Verified 07/14/19 12:44 Vital Signs Temp Pulse Resp BP Pulse Ox 98 F 85 18 126/93 99 07/14/19 12:41 07/14/19 12:41 07/14/19 12:41 07/14/19 12:41 07/14/19 12:41 07/14/19 13:02 cc: abdominal pain x 3 hours HPI: Patient pain in lower abdomen intermittently x 3-5 hours Denies nausea, vomiting or diarrhea PE: unable to assess ( refuse palpation; screaming "it hurts") orders: urine preg, toradol, maalox This patient will proceed to the main emergency department for further evaluation Discharge Disposition - Diagnosis Abdominal pain - Referrals - Patient Instructions - Post Discharge Activity
[2019-07-14] MEDS ORDERED: MAG HYDROX/AL HYDROX/SIMETH 30 ML UNIT-DOSE CUP PO ONE (13:05)
[2019-07-14] MEDS ORDERED: ACETAMINOPHEN 500 MG TABLET (FP) PO ONE (13:05)
[2019-07-14] MEDS ORDERED: MAG HYDROX/AL HYDROX/SIMETH 30 ML UNIT-DOSE CUP ONE (14:01)
[2019-07-14] MEDS ORDERED: ACETAMINOPHEN 500 MG TABLET (FP) ONE (14:03)
[2019-07-14] MEDS ORDERED: morphine CARPU-JECT 2 MG/1 ML DISP.SYRIN IVPUSH ONE (14:17)
[2019-07-14] MEDS ORDERED: SODIUM CHLORIDE 1,000 ML IV STA (14:17)
[2019-07-14] MEDS ORDERED: ONDANSETRON 4 MG/2 ML VIAL IVPUSH ONE (14:17)
[2019-07-14] MEDS ORDERED: MORPHINE SULFATE 2 MG/ML VIAL ONE (14:37)
[2019-07-14] MEDS ORDERED: ONDANSETRON 4 MG/2 ML VIAL ONE (14:37)
--- NOTE | 2019-07-14 15:34 | PDOC ---
History of Present Illness - General History Source: Patient Exam Limitations: No Limitations - History of Present Illness Travel History: No Initial Comments: 07/14/19 15:30 38-year-old female presents to ED with nausea decreased p.o. intake, and continue left flank pain. Patient states was seen here a few days ago and was given an antibiotic which she has been taking but her symptoms do not improve. Patient denies fever, chills diarrhea, hematuria, but states pain is radiating to her back Timing/Duration: reports: getting worse Quality: reports: moderate, sharpness, stabbing Abdominal Pain Onset Location: reports: flank Pain Radiation: reports: back Aggravating Factors: improves with: None Alleviating Factors: improves with: None <Luisana Taylor - Last Filed: 07/14/19 18:38> <Nam Danielle - Last Filed: 07/20/19 07:59> - General Chief Complaint: Pain Stated Complaint: ABDOMINAL PAIN Time Seen by Provider: 07/14/19 13:02 Past History - Travel Traveled outside of the country in the last 30 days: No Close contact w/someone who was outside of country & ill: No - Past Medical History Anemia: No Asthma: No Cancer: No Cardiac Disorders: No CVA: No COPD: No CHF: No Dementia: No Diabetes: No GI Disorders: Yes (Hyperemesis gravidarum) Disorders: No HTN: No Hypercholesterolemia: No Kidney Stones: Yes Liver Disease: No Psychiatric Problems: Yes (DEPRESSION) Seizures: No Thyroid Disease: No - Surgical History Abdominal Surgery: Yes Appendectomy: Yes Cardiac Surgery: No Cholecystectomy: No Lung Surgery: No Neurologic Surgery: No Orthopedic Surgery: No - Reproductive History (#): 5 Para: 3 Cervical CA: No Dysfunctional Uterine Bleeding: No Ectopic : Yes Endometrial CA: No PID: No Polycystic Ovaries: No Therapeutic (s) & number: Yes (2) Tubal Ligation: No Spontaneous : 2 - Immunization History Immunization Up to Date: No - Psycho Social/Smoking Cessation Hx Smoking Status: No Smoking History: Never smoked Have you smoked in the past 12 months: No Number of Cigarettes Smoked Daily: 10 If you are a former smoker, when did you quit?: 08/2013 Cigars Per Day: 0 'Breaking Loose' booklet given: 12/01/13 Hx Alcohol Use: No Drug/Substance Use Hx: No Substance Use Type: None Hx Substance Use Treatment: Yes Patient Lives Alone: No Lives with/in: spouse/SO <Luisana Taylor - Last Filed: 07/14/19 18:38> <Nam Danielle - Last Filed: 07/20/19 07:59> - Past Medical History Allergies/Adverse Reactions: Allergies Allergy/AdvReac Type Severity Reaction Status Date / Time metoclopramide HCl Allergy Intermediate Itching Verified 07/14/19 12:44 [From Reglan] ketorolac [From Toradol] Allergy Mild Hives Verified 07/14/19 12:44 Home Medications: Ambulatory Orders Sulfamethoxazole/Trimethoprim [Bactrim Ds -] 1 tab PO BID #14 tablet 07/12/19 Ondansetron HCl [Zofran] 4 mg PO TID PRN #12 tablet 07/14/19 Abd/GI Specific PMHX - Complaint Specific PMHX Hepatitis: No Pancreatitis: No <Luisana Taylor - Last Filed: 07/14/19 18:38> Review of Systems - Review of Systems Able to Perform ROS?: Yes Constitutional: No: Symptoms Reported HEENTM: No: Symptoms Reported Respiratory: No: Symptoms reported Cardiac (ROS): No: Symptoms Reported ABD/GI: Yes: Nausea, Poor Fluid Intake, Abdominal cramping : Yes: Flank Pain Integumentary: No: Symptoms Reported Neurological: No: Symptoms reported <Luisana Taylor - Last Filed: 07/14/19 18:38> *Physical Exam - Vital Signs Last Vital Signs Temp Pulse Resp BP Pulse Ox 98 F 85 18 126/93 99 07/14/19 12:41 07/14/19 12:41 07/14/19 12:41 07/14/19 12:41 07/14/19 12:41 - Physical Exam General Appearance: Yes: Nourished, Appropriately Dressed. No: Apparent Distress HEENT: positive: Pharynx Normal. negative: Pale Conjunctivae Neck: positive: Supple Respiratory/Chest: positive: Lungs Clear, Normal Breath Sounds. negative: Respiratory Distress, Accessory Muscle Use Cardiovascular: positive: Regular Rhythm, Regular Rate. negative: Murmur Gastrointestinal/Abdominal: positive: Soft, Tenderness (Left flank) Musculoskeletal: positive: CVA Tenderness (L) Integumentary: positive: Normal Color, Warm, Moist Neurologic: positive: Motor Strength 5/5 (Ambulatory) <Luisana Taylor - Last Filed: 07/14/19 18:38> - Vital Signs Last Vital Signs Temp Pulse Resp BP Pulse Ox 99.1 F 71 15 149/94 100 07/14/19 16:44 07/14/19 16:44 07/14/19 16:44 07/14/19 16:44 07/14/19 16:44 <Nam Danielle - Last Filed: 07/20/19 07:59> ED Treatment Course - LABORATORY CBC & Chemistry Diagram: 07/14/19 14:52 07/14/19 14:52 - Medications Given in the ED: ED Medications Discontinued Medications Generic Name Dose Route Start Last Admin Trade Name Freq PRN Reason Stop Dose Admin Acetaminophen 1,000 mg 07/14/19 13:05 07/14/19 14:10 Tylenol - PO 07/14/19 13:06 Not Given ONCE ONE Al Hydroxide/Mg Hydroxide 30 ml 07/14/19 13:05 07/14/19 14:09 Mylanta Oral Suspension - PO 07/14/19 13:06 Not Given ONCE ONE <Luisana Taylor - Last Filed: 07/14/19 18:38> - LABORATORY CBC & Chemistry Diagram: 07/14/19 14:52 07/14/19 14:52 - ADDITIONAL ORDERS Additional order review: 07/14/19 17:05 Urine Culture - Final Urine - Urine Clean Catch NO GROWTH OBTAINED 07/14/19 14:52 RBC 4.44 MCV 93.5 MCHC 33.0 RDW 13.6 MPV 8.5 Neutrophils % 65.7 Lymphocytes % 26.7 D Monocytes % 6.7 Eosinophils % 0.3 D Basophils % 0.6 - Medications Given in the ED: ED Medications Discontinued Medications Generic Name Dose Route Start Last Admin Trade Name Freq PRN Reason Stop Dose Admin Acetaminophen 1,000 mg 07/14/19 13:05 07/14/19 14:10 Tylenol - PO 07/14/19 13:06 Not Given ONCE ONE Al Hydroxide/Mg Hydroxide 30 ml 07/14/19 13:05 07/14/19 14:09 Mylanta Oral Suspension - PO 07/14/19 13:06 Not Given ONCE ONE Sodium Chloride 1,000 mls @ 1,000 mls/hr 07/14/19 14:17 07/14/19 15:38 Normal Saline - IV 07/14/19 15:16 1,000 mls/hr ASDIR STA Administration Morphine Sulfate 2 mg 07/14/19 14:17 07/14/19 15:37 Morphine Injection - IVPUSH 07/14/19 14:18 2 mg ONCE ONE Administration Ondansetron HCl 4 mg 07/14/19 14:17 07/14/19 15:38 Zofran Injection IVPUSH 07/14/19 14:18 4 mg ONCE ONE Administration <Nam Danielle - Last Filed: 07/20/19 07:59> Medical Decision Making - Medical Decision Making 07/14/19 15:32 Chief complaint: continual abdominal pain now associated with nausea. Exam: Left flank left CVA tenderness Plan: Urine, labs, morphine, Zofran, and fluids 07/14/19 16:58 Laboratory Tests 07/14/19 07/14/19 14:52 14:52 WBC 12.0 H Hgb 13.7 Hct 41.5 Sodium 136 Potassium 3.4 L Chloride 103 Carbon Dioxide 26 Anion Gap 8 BUN 6.4 L Creatinine 0.8 Random Glucose 98 Calcium 9.9 Magnesium 2.2 Total Bilirubin 0.4 AST 13 L ALT 17 Alkaline Phosphatase 67 Total Protein 6.9 Albumin 3.8 Patient pending urine. Patient requesting to eat 07/14/19 17:01 07/14/19 18:39 Laboratory Tests 07/14/19 07/14/19 17:05 17:05 Urine pH 8.5 H Ur Specific [place] 1.008 L Urine Protein Negative Urine Glucose (UA) Negative Urine Ketones Negative Urine Blood Negative Urine Nitrite Negative Urine Bilirubin Negative Ur Leukocyte Esterase Negative Urine HCG, Qual Negative Patient tolerated dinner tray. Patient will be discharged home with Zofran <Luisana Taylor - Last Filed: 07/14/19 18:38> - Medical Decision Making The patient was seen and evaluated in conjunction with ROGELIO Taylor under my direct supervision, ancillary studies were reviewed. I independently interviewed and evaluated the patient and I agree with the plan as outlined by ROGELIO Taylor. <Nam Danielle - Last Filed: 07/20/19 07:59> Discharge - Discharge Information Problems reviewed: Yes <Luisana Taylor - Last Filed: 07/14/19 18:38> <Nam Danielle - Last Filed: 07/20/19 07:59> - Discharge Information Clinical Impression/Diagnosis: Abdominal pain Condition: Improved Disposition: HOME - Additional Discharge Information Prescriptions: Ondansetron HCl [Zofran] 4 mg PO TID PRN #12 tablet PRN Reason: Nausea And/Or Vomiting - Follow up/Referral Referrals: Romero Cole MD [Primary Care Provider] - - Patient Discharge Instructions Patient Printed Discharge Instructions: DI for Abdominal Pain-Adult Additional Instructions: Continue take your medications as previously prescribed. May take Zofran as needed for nausea. Eat small frequent meals throughout the day and stay well-hydrated. - Post Discharge Activity
[2019-07-14 15:44] LABS: BASO % 0.6 % (0-2.0); EOS % 0.3 % (0-4.5); HEMATOCRIT 41.5 % (32.4-45.2); HEMOGLOBIN 13.7 GM/dL (10.7-15.3); LYMPH % 26.7 % (8-40); MCH 30.8 pg (25.7-33.7); MEAN CELL VOLUME 93.5 fl (80-96); MEAN PLT VOLUME 8.5 fl (7.5-11.1); MONO % 6.7 % (3.8-10.2); NEUT % 65.7 % (42.8-82.8); PLATELET COUNT 386 K/MM3 (134-434); RBC 4.44 M/mm3 (3.60-5.2); RDW 13.6 % (11.6-15.6)
[2019-07-14 15:59] LABS: ALBUMIN 3.8 g/dl (3.4-5.0); BILIRUBIN,TOTAL 0.4 mg/dL (0.2-1); BLOOD UREA NITROGEN 6.4 mg/dL (7-18); CALCIUM 9.9 mg/dL (8.5-10.1); CREATININE 0.8 mg/dL (0.55-1.3); MAGNESIUM 2.2 mg/dL (1.8-2.4); POTASSIUM 3.4 mmol/L (3.5-5.1); TOT PROT 6.9 g/dl (6.4-8.2)
[2019-07-14 18:17] LABS: PH,URINE 8.5 (5.0-8.0); URINE APPEARANCE CLOUDY; URINE BILIRUBIN NEGATIVE (NEGATIVE); URINE COLOR YELLOW; URINE GLUCOSE (UA) NEGATIVE (NEGATIVE); URINE KETONE NEGATIVE (NEGATIVE); URINE LEUK ESTERASE NEGATIVE (NEGATIVE); URINE NITRITE NEGATIVE (NEGATIVE); URINE PROTEIN NEGATIVE (NEGATIVE); URINE UROBILINOGEN 0.2 mg/dL (0.2-1.0)
[2019-07-14 18:46] VITALS: BP 149/94; PULSE 71; TEMP 99.1
== END 2019-07-14 18:47 | disposition home or self-care (01) ==
LOC: JER 12:20
PROC: 3E033GC Introduction of Other Therapeutic Substance into Peripheral Vein, Percutaneous Approach (ICD-10-PCS; principal; 2019-07-14)
PROC: 3E0333Z Introduction of Anti-inflammatory into Peripheral Vein, Percutaneous Approach (ICD-10-PCS; 2019-07-14)
DX: R10.32 Left lower quadrant pain (principal); R11.0 Nausea; Z88.8 Allergy status to other drugs, medicaments and biological substances
CPT/HCPCS: 36415; 80053; 81003; 83735; 84703; 85025; 87086; 96374; 96375; 99282-25; J7030

== ENCOUNTER 2019-09-20 08:32 | Emergency (ER) | payer OTHER ==
[2019-09-20 08:40] VITALS: BMI 30.1
[2019-09-20] MEDS ORDERED: MAG HYDROX/AL HYDROX/SIMETH 30 ML UNIT-DOSE CUP PO ONE (09:10)
[2019-09-20] MEDS ORDERED: SODIUM CHLORIDE 1,000 ML IV STA (09:10)
[2019-09-20] MEDS ORDERED: FAMOTIDINE 20 MG/50 ML IVPB 20 MG/50 ML MG IVPB ONE ×2 (09:10→09:32)
[2019-09-20] MEDS ORDERED: ONDANSETRON 4 MG/2 ML VIAL IVPUSH ONE (09:10)
[2019-09-20] MEDS ORDERED: MAG HYDROX/AL HYDROX/SIMETH 30 ML UNIT-DOSE CUP ONE (09:31)
[2019-09-20] MEDS ORDERED: ONDANSETRON 4 MG/2 ML VIAL ONE (09:32)
[2019-09-20] MEDS ORDERED: KETOROLAC TROMETHAMINE 15 MG/ML VIAL IVPUSH ONE (09:33)
[2019-09-20] MEDS ORDERED: LORazepam 2 MG/ML SDV VIAL ONE (09:34)
[2019-09-20] MEDS ORDERED: KETOROLAC TROMETHAMINE 15 MG/ML VIAL ONE (09:35)
--- NOTE | 2019-09-20 09:39 | PDOC ---
Attending Attestation - Resident Resident Name: HoneyFouzia - ED Attending Attestation I have performed the following: I have examined & evaluated the patient, The case was reviewed & discussed with the resident, I agree w/resident's findings & plan - HPI HPI: 09/20/19 09:35 39 yo female w/ pmhx cbd hyperemesis, gerd, renal colic, chronic abd pain, sp cholecystectomy here today for 5 days of intermittent LLQ pain radiating to L flank assoc w/ multiple episodes of emesis similar to mutliple prior presentations to the ed. Pt states that it feels like her renal colic. - Physicial Exam PE: 09/20/19 09:36 PE Gen: Emotionally Liable and manipulative ABd: Soft NTND +BS, mild epigastric tenderness, distractable LLQ tenderness Lungs: CTA bilat CV: RRR - Medical Decision Making 09/20/19 09:38 39 yo fem w/ hyperemesis and LLQ pain rad to L flank will eval for renal colic vs sbo Plan Basic Labs / lipase Lactate IVF Zofran Ativan, will consider haldol for persistent nausea CTAP w/ IV Re-assess EKG NSR 79 normal axis and intervals no acute ischemia [id number] 09/20/19 10:39 09/20/19 12:50 CT shows L ovarian cyst 4.1cm, in setting of LLQ pain will get US to r.o Torsion, will consult OBGYN for eval. Discussed case w/ Dr. Asaf MENDES who will come and eval the pt bedside pending US. US negative for torsion, seen bedside by obgyn who has cleared pt, pt pain controlled and tolerating po. Stable for dc 09/20/19 13:46 Discharge - Discharge Information Clinical Impression/Diagnosis: Hypokalemia Abdominal pain Qualifiers: Abdominal location: left lower quadrant Qualified Code(s): R10.32 - Left lower quadrant pain Ovarian cyst Qualifiers: Laterality: left Qualified Code(s): N83.202 - Unspecified ovarian cyst, left side - Follow up/Referral Referrals: Gustavo Cole MD [Primary Care Provider] - - Patient Discharge Instructions - Post Discharge Activity
[2019-09-20] MEDS ORDERED: ACETAMINOPHEN 1000 MG/100 ML VIAL (NON FORMULARY) IVPB ONE (09:51)
--- NOTE | 2019-09-20 09:53 | PDOC ---
History of Present Illness - General Chief Complaint: Pain Stated Complaint: ABDOMINAL PAIN Time Seen by Provider: 09/20/19 08:40 History Source: Patient Exam Limitations: No Limitations - History of Present Illness Initial Comments: 09/20/19 09:52 39y F with PMH of GERD, psych disorders presenting to ER for LLQ abdominal pain radiating to the L flank x5 days. Pt states it feels like kidney stones which she had in the past. Does not feel like her usual abdominal pain. Feels like a stabbing sensation. Associated with nbnb emesis and black diarrhea. She denies fever chills, dysuria, chest pain, sob, headache, vaginal discharge, history of STDs. She smokes marijuana but denies smoking it recently. PMD: Mary Cole PMH: see hpi PSH: appendectomy, cholecystectomy Allergies; Reglan, Toradol Social: marijuana. Past History - Past Medical History Allergies/Adverse Reactions: Allergies Allergy/AdvReac Type Severity Reaction Status Date / Time metoclopramide HCl Allergy Intermediate Itching Verified 09/20/19 12:52 [From Reglan] ketorolac [From Toradol] Allergy Mild Hives Verified 09/20/19 12:52 Home Medications: Ambulatory Orders Ibuprofen 600 mg PO TID #12 tablet 09/20/19 Anemia: No Asthma: No Cancer: No Cardiac Disorders: No CVA: No COPD: No CHF: No Dementia: No Diabetes: No GI Disorders: Yes (Hyperemesis gravidarum) Disorders: No HTN: No Hypercholesterolemia: No Kidney Stones: Yes Liver Disease: No Psychiatric Problems: Yes (DEPRESSION) Seizures: No Thyroid Disease: No - Surgical History Abdominal Surgery: Yes Appendectomy: Yes Cardiac Surgery: No Cholecystectomy: No Lung Surgery: No Neurologic Surgery: No Orthopedic Surgery: No - Reproductive History (#): 5 Para: 3 Cervical CA: No Dysfunctional Uterine Bleeding: No Ectopic : Yes Endometrial CA: No PID: No Polycystic Ovaries: No Therapeutic (s) & number: Yes (2) Tubal Ligation: No Spontaneous : 2 - Immunization History Immunization Up to Date: No - Psycho Social/Smoking Cessation Hx Smoking Status: No Smoking History: Never smoked Have you smoked in the past 12 months: No Number of Cigarettes Smoked Daily: 10 If you are a former smoker, when did you quit?: 08/2013 Cigars Per Day: 0 'Breaking Loose' booklet given: 12/01/13 Hx Alcohol Use: No Drug/Substance Use Hx: No Substance Use Type: None Hx Substance Use Treatment: Yes Review of Systems - Review of Systems Constitutional: No: Symptoms Reported HEENTM: No: Symptoms Reported Respiratory: No: Symptoms reported Cardiac (ROS): No: Symptoms Reported ABD/GI: Yes: See HPI : Yes: See HPI Musculoskeletal: No: Symptoms Reported Integumentary: No: Symptoms Reported Neurological: No: Symptoms reported *Physical Exam - Vital Signs Last Vital Signs Temp Pulse Resp BP Pulse Ox 98.4 F 110 H 18 130/84 100 09/20/19 08:36 09/20/19 08:36 09/20/19 08:36 09/20/19 08:36 09/20/19 08:36 - Physical Exam General Appearance: Yes: Nourished, Appropriately Dressed, Moderate Distress, Other (tearful) HEENT: positive: EOMI, MORIAH Neck: positive: Trachea midline, Supple. negative: Lymphadenopathy (R), Lymp hadenopathy (L) Respiratory/Chest: positive: Lungs Clear, Normal Breath Sounds. negative: Crackles, Rales, Rhonchi, Stridor, Wheezing Cardiovascular: positive: S1, S2, Tachycardia. negative: Edema, JVD, Murmur Comments:: 09/20/19 17:42 radial pulses 2+ Female Pelvic Exam: positive: normal external exam, cervical os closed, vaginal bleeding (scant bleeding). negative: CMT, adnexal tenderness Gastrointestinal/Abdominal: positive: Normal Bowel Sounds, Tender (luq), Soft. 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 II-XII NML intact, Fully Oriented, Alert, Normal Response, Motor Strength 5/5 ED Treatment Course - LABORATORY CBC & Chemistry Diagram: 09/20/19 09:28 09/20/19 09:28 - ADDITIONAL ORDERS Additional order review: Laboratory Results 09/20/19 08:53 Stool Occult Blood Negative - RADIOLOGY Radiology Studies Ordered: Category Date Time Status ABDOMEN & PELVIS CT W/O CONTR [CT] Stat CT Scan 09/20/19 09:11 Ordered CHEST PA & LAT [RAD] Stat Radiology 09/20/19 09:36 Ordered - Medications Given in the ED: ED Medications Discontinued Medications Generic Name Dose Route Start Last Admin Trade Name Cosme PRN Reason Stop Dose Admin Al Hydroxide/Mg Hydroxide 30 ml 09/20/19 09:10 09/20/19 09:50 Mylanta Oral Suspension - PO 09/20/19 09:11 30 ml ONCE ONE Administration Famotidine/Sodium Chloride 20 mg in 50 mls @ 100 mls/hr 09/20/19 09:10 09/20/19 09:51 Pepcid 20 Mg Premixed Ivpb - IVPB 09/20/19 09:39 100 mls/hr ONCE ONE Administration Lorazepam 0.5 mg 09/20/19 09:33 09/20/19 09:50 Ativan Injection - IVPUSH 09/20/19 09:34 0.5 mg ONCE ONE Administration Ondansetron HCl 4 mg 09/20/19 09:10 09/20/19 09:51 Zofran Injection IVPUSH 09/20/19 09:11 4 mg ONCE ONE Administration Medical Decision Making - Medical Decision Making 09/20/19 14:28 39y F presenting for abdominal pain vitals: tachycardia. afebrile ddx includes uteral stone, torsion, diverticulitis, abscess, ovarian cyst -basic labs, lactate, trop, lipase, preg, ua, ucx -ctap -fluids, pepcid, maalox, zofran, ns, ofirmev, ativan, haldol (for intractable nausea) ekg: sinus at 79bpm. [place] 106. no signs of acute ischemia. CXR: no acute pathology 09/20/19 17:43 labs show leukocytosis (pt has baseline leukocytosis). chem shows slight hyponatremia, hypoK (3). lactic acid likely 2/2 stress. other labs wnl ua shows 2+ blood (pt currently menstruating) CTAP shows renal stones, no ureteral stones. 4.5cm L adnexal cyst -TVUS, OB consult. -TVUS shows hemorrhagic cyst, normal vascular flow. per OB, pt can be d/c. low suspicion for torsion. upon reassessment, pt appears more comfortable, does not have much pain at this time, is not tearful. will dc with ibuprofen. ob f/u. pt agrees to plan. Discharge - Discharge Information Problems reviewed: Yes Clinical Impression/Diagnosis: Hypokalemia Abdominal pain Qualifiers: Abdominal location: left lower quadrant Qualified Code(s): R10.32 - Left lower quadrant pain Ovarian cyst Qualifiers: Laterality: left Qualified Code(s): N83.202 - Unspecified ovarian cyst, left side - Admission No - Additional Discharge Information Prescriptions: Ibuprofen 600 mg PO TID #12 tablet - Follow up/Referral Referrals: Gustavo Cole MD [Primary Care Provider] - Koko Ron MD [Staff Physician] - Damaris Mosley MD [Staff Physician] - Ally Doll MD [Staff Physician] - Alisson Garza MD [Staff Physician] - Shukri Berrios MD [Staff Physician] - Guzman Yarbrough MD [Staff Physician] - - Patient Discharge Instructions Patient Printed Discharge Instructions: DI for Ovarian Cyst Additional Instructions: You were seen in the ER for pain. You have a hemorrhagic cyst. These are usually benign. You can take ibuprofen, Advil for pain as needed. You can also take Tylenol. I recommend following up with [facility]. If you do not have one, there are referrals provided below. Come back to the ER if you have worsening pain. Thank you - Post Discharge Activity
[2019-09-20] MEDS ORDERED: ACETAMINOPHEN INJECTION 100 ML IVPB ONE (10:03)
[2019-09-20 10:08] LABS: BASO % 0.2 % (0-2.0); EOS % 0.1 % (0-4.5); HEMATOCRIT 47.2 % (32.4-45.2); HEMOGLOBIN 16.3 GM/dL (10.7-15.3); MCH 31.6 pg (25.7-33.7); MCHC 34.5 g/dl (32.0-36.0); MEAN CELL VOLUME 91.6 fl (80-96); MEAN PLT VOLUME 9.1 fl (7.5-11.1); MONO % 9.2 % (3.8-10.2); NEUT % 67.5 % (42.8-82.8); PLATELET COUNT 368 K/MM3 (134-434); RBC 5.15 M/mm3 (3.60-5.2); RDW 13.4 % (11.6-15.6); WHITE BLOOD COUNT 14.8 K/mm3 (4.0-10.0)
[2019-09-20 10:26] LABS: ALBUMIN 4.2 g/dl (3.4-5.0); BILIRUBIN,TOTAL 1.2 mg/dL (0.2-1); BLOOD UREA NITROGEN 14.2 mg/dL (7-18); CALCIUM 9.8 mg/dL (8.5-10.1); CREATININE 1.1 mg/dL (0.55-1.3)
[2019-09-20] MEDS ORDERED: POTASSIUM CHLORIDE TABS 10 MEQ TABLET.ER (FP) PO ONE (10:33)
[2019-09-20] MEDS ORDERED: POTASSIUM CHLORIDE TABS 20 MEQ TABLET.ER (FP) PO ONE (11:06)
[2019-09-20] MEDS ORDERED: HALOPERIDOL LACTATE 5 MG/ML IM ONE (11:43)
[2019-09-20] MEDS ORDERED: HALOPERIDOL LACTATE 5 MG/ML ONE (11:43)
[2019-09-20 12:35] VITALS: BP 117/77; PULSE 80; TEMP 98
[2019-09-20 12:39] LABS: EPI CELLS >36 /uL (0-25.1); HYALINE CASTS 0 /uL (0-3.1); PH,URINE 7.5 (5.0-8.0); URINE APPEARANCE CLEAR; URINE BACTERIA 265 /uL (0-1359); URINE BILIRUBIN NEGATIVE (NEGATIVE); URINE COLOR YELLOW; URINE GLUCOSE (UA) NEGATIVE (NEGATIVE); URINE KETONE NEGATIVE (NEGATIVE); URINE LEUK ESTERASE NEGATIVE (NEGATIVE); URINE NITRITE NEGATIVE (NEGATIVE); URINE PROTEIN NEGATIVE (NEGATIVE); URINE RBC 8 /uL (0-23.9); URINE WBC 30 /uL (0-25.8)
--- NOTE | 2019-09-21 14:19 | EKG ---
Test Reason : Blood Pressure : / mmHG Vent. Rate : 079 BPM Atrial Rate : 079 BPM P-R Int : 106 ms QRS Dur : 084 ms QT Int : 386 ms P-R-T Axes : 000 024 019 degrees QTc Int : 442 ms SINUS RHYTHM WITH SHORT DE ABNORMAL ECG WHEN COMPARED WITH ECG OF 12-JUL-2019 08:55, Confirmed by AMIRA LAYNE MD ([id number]) on 09/21/2019 2:19:27 PM Referred By: Confirmed By:AMIRA LAYNE MD
== END 2019-09-20 14:00 ==
LOC: JER 08:32
DX: N83.202 Unspecified ovarian cyst, left side (principal); E87.6 Hypokalemia
CPT/HCPCS: 36415; 71046-TC-FY; 74176-TC; 76830-TC; 80053; 81003; 82272; 83605; 83690; 84703; 85025; 93005; 93010; 99285-25; J0131; J7030

== ENCOUNTER 2019-10-19 09:36 | Emergency (ER) | payer OTHER ==
[2019-10-19 09:48] VITALS: BMI 28.3
[2019-10-19] MEDS ORDERED: IBUPROFEN 400 MG TABLET (FP) PO ONE (10:09)
[2019-10-19] MEDS ORDERED: SODIUM CHLORIDE 0.9% 500 ML INFUS.BAG IV ONE (10:10)
[2019-10-19] MEDS ORDERED: ONDANSETRON 4 MG/2 ML VIAL IVPUSH ONE (10:10)
[2019-10-19 10:12] VITALS: BP 140/76; PULSE 75; TEMP 98
[2019-10-19] MEDS ORDERED: MAG HYDROX/AL HYDROX/SIMETH 30 ML UNIT-DOSE CUP PO ONE (10:13)
--- NOTE | 2019-10-19 10:14 | PDOC ---
History of Present Illness - General Chief Complaint: Back Pain Stated Complaint: BACK PAIN - History of Present Illness Initial Comments: The pt is a 39F w/ a history of nephrolithiasis, polysubstance abuse (per record xanax, opioids, and CBD hyperemesis), s/p cholecystectomy and appendectomy who presents for evaluation of 1 day of right sided back pain. The pt reports that pain is sharp intermittent, non-radiating, associated with nausea/vomiting, and is not alleviated by anything she can identify. She denies fevers/chills, chest pain, trouble breathing, dysuria, hematuria, diarrhea, or blood in her stool. 10/19/19 10:35 Past History - Past Medical History Allergies/Adverse Reactions: Allergies Allergy/AdvReac Type Severity Reaction Status Date / Time metoclopramide HCl Allergy Intermediate Itching Verified 10/19/19 09:41 [From Reglan] ketorolac [From Toradol] Allergy Mild Hives Verified 10/19/19 09:41 Home Medications: Ambulatory Orders Ibuprofen 600 mg PO TID #12 tablet 09/20/19 Anemia: No Asthma: No Cancer: No Cardiac Disorders: No CVA: No COPD: No CHF: No Dementia: No Diabetes: No GI Disorders: Yes (Hyperemesis gravidarum) Disorders: No HTN: No Hypercholesterolemia: No Kidney Stones: Yes Liver Disease: No Psychiatric Problems: Yes (DEPRESSION) Seizures: No Thyroid Disease: No - Surgical History Abdominal Surgery: Yes Appendectomy: Yes Cardiac Surgery: No Cholecystectomy: No Lung Surgery: No Neurologic Surgery: No Orthopedic Surgery: No - Reproductive History (#): 5 Para: 3 Cervical CA: No Dysfunctional Uterine Bleeding: No Ectopic : Yes Endometrial CA: No PID: No Polycystic Ovaries: No Therapeutic (s) & number: Yes (2) Tubal Ligation: No Spontaneous : 2 - Immunization History Immunization Up to Date: No - Psycho Social/Smoking Cessation Hx Smoking Status: No Smoking History: Unknown if ever smoked Have you smoked in the past 12 months: No Number of Cigarettes Smoked Daily: 10 If you are a former smoker, when did you quit?: 08/2013 Cigars Per Day: 0 Information on smoking cessation initiated: No 'Breaking Loose' booklet given: 12/01/13 Hx Alcohol Use: No Drug/Substance Use Hx: No Substance Use Type: None Hx Substance Use Treatment: Yes Review of Systems - Review of Systems Able to Perform ROS?: Yes Comments:: GENERAL/CONSTITUTIONAL: No fever or chills HEAD, EYES, EARS, NOSE AND THROAT: No change in vision. No change in hearing. No sore throat CARDIOVASCULAR: No chest pain or shortness of breath RESPIRATORY: Denies cough, hemoptysis GASTROINTESTINAL: +N/V; denies diarrhea GENITOURINARY: No dysuria, frequency, or change in urination MUSCULOSKELETAL: No joint or muscle swelling or pain SKIN: No rash NEUROLOGIC: No vertigo, loss of consciousness ENDOCRINE: No increased thirst. No abnormal weight change ALLERGIC/IMMUNOLOGIC: No hives or skin allergy 10/19/19 10:37 Is the patient limited Sinhala proficient: No *Physical Exam - Vital Signs Last Vital Signs Temp Pulse Resp BP Pulse Ox 0/0 L 10/19/19 09:41 - Physical Exam GENERAL: Awake, alert, and oriented to person/place/time HEAD: No signs of trauma, normocephalic, atraumatic EYES: PERRLA, EOMI, sclera anicteric, conjunctiva clear ENT: Hearing grossly normal, nares patent. Moist mucosa LUNGS: No distress, speaks in full sentences, clear to auscultation bilaterally HEART: Regular rate and rhythm, normal S1 and S2, no murmurs appreciated, 2+ b/l radial and DP pulses ABDOMEN: Soft, nontender, normoactive bowel sounds. No guarding, no rebound. No CVA TTP EXTREMITIES: Normal inspection, Normal range of motion, no edema NEUROLOGICAL: Cranial nerves II through XII grossly intact. Normal speech, normal gait, no focal sensorimotor deficits SKIN: Warm, Dry 10/19/19 10:11 Medical Decision Making - Medical Decision Making The pt is a 39F w/ a history of nephrolithiasis, polysubstance abuse (per record xanax, opioids, and CBD hyperemesis), s/p cholecystectomy and appendectomy who presents for evaluation of 1 day of right sided back pain. Pt states pain is typical of her kidney stone pain. Pt initially repeatedly leaving room and uncooperative with interview/exam including not allowing staff to take vital signs, perform physical exam, or answering questions. Security was called to pt's bedside twice, after which, she allowed vital signs to be obtained and an IV to be placed. Pt noted to be ambulating with a steady gait POCUS negative for b/l hydronephrosis The pt states that she has received Toradol in the past and her skin turns red but that is prevented when taken with Benadryl Will give Toradol 15mg IV once and Benadryl 25mg IM once Will give Zofran 4mg IV once for nausea NS 1L for hydration Maalox for reflux symptoms pt described upon further evaluation 10/19/19 10:31 Pt sleeping comfortably at this time UA appears contaminated and pt w/o dysuria, will not treat pending Cx 10/19/19 12:05 Pt continues to rest comfortably 10/19/19 13:14 Plan for D/C w/ PCP f/u Discharge instructions and return precautions given Patient in agreement and verbalized understanding Dispo: Home Discharge - Discharge Information Problems reviewed: Yes Clinical Impression/Diagnosis: Nausea Back pain Qualifiers: Back pain location: thoracic back pain Chronicity: unspecified Back pain laterality: right Qualified Code(s): M54.6 - Pain in thoracic spine Condition: Improved Disposition: HOME - Admission No - Follow up/Referral Referrals: Romero Cole MD [Primary Care Provider] - - Patient Discharge Instructions Patient Printed Discharge Instructions: Kidney Stones -- Adult, DI for Thoracic Back Pain Additional Instructions: You were seen in the Emergency Department for evaluation of back pain. Your bedside ultrasound and urine labs were unremarkable. Review the handouts provided at discharge. Follow up with your primary care doctor and Urologist within a week. For pain you may take Tylenol 650mg every 6 hours and Ibuprofen 600mg every 6-8 hours, alternating them each time. Return to the Emergency Department if you develop fevers, chest pain, trouble breathing, worsening pain, change in sensation, worsening symptoms, or any new/concerning symptoms. - Post Discharge Activity
[2019-10-19] MEDS ORDERED: KETOROLAC TROMETHAMINE 15 MG/ML VIAL IVPUSH ONE (10:29)
[2019-10-19] MEDS ORDERED: MAG HYDROX/AL HYDROX/SIMETH 30 ML UNIT-DOSE CUP ONE (10:30)
[2019-10-19] MEDS ORDERED: KETOROLAC TROMETHAMINE 30 MG/1 ML VIAL ONE (10:30)
[2019-10-19] MEDS ORDERED: ONDANSETRON 4 MG/2 ML VIAL ONE (10:31)
--- NOTE | 2019-10-19 10:43 | PDOC ---
Attending Attestation - Resident Resident Name: Reece Suggs - ED Attending Attestation I have performed the following: I have examined & evaluated the patient, The case was reviewed & discussed with the resident, I agree w/resident's findings & plan, Exceptions are as noted - HPI HPI: 10/19/19 10:36 39 yo F h/o chronic abd pain, renal colic, marijuana use, GERD well known to this ED with multiple presentations of pain and in the past has been threatening to staff and required information security from ED p/w R sided back pain began yesterday at work. States feels similar to previous kidney stones. Denies hematuria and dysuria. Also reports vomiting, last episode this AM. Denies abd pain, cough, CP, SOB, headache or fevers. Denies numbness or weakness in extremities. Patient ambulated into ED without difficulty. Upon entry, patient began yelling and screaming that she was in pain and that no one was helping her despite the presence of myself and 2 residents at the bedside attempting to speak with her. Pt. repeatedly uncooperative with exam and yelling that she needs IVF and medication for pain and that motrin is not strong enough. Patient agreeable to toradol provided it is given with benadryl as patient reports she "turns red" when given toradol. - Physicial Exam PE: 10/19/19 10:43 General: yelling and screaming in ED, intermittently getting up from her bed and ambulatory around her room HEENT: NCAT, MMM Chest: CTAB, good air entry CVS: + s1 s2, rrr Abdomen: soft, nt, no rebound, no guarding Back: no CVA tenderness, no midline or paraspinal tenderness Extremities: warm and well perfused, +DP pulses, no LE edema Neuro: ambulatory with steady gait, speech fluent, face symmetric, Aox3, no focal deficits - Medical Decision Making 10/19/19 10:46 39 yo F here with report of R sided low back pain similar to prior kidney stones, exam only notable for agitated yelling and uncooperative patient but otherwise no abd tenderness and no CVA tenderness, bedside sono without evidence of hydro and exam without any signs/symptoms concerning for cord compression. Possible kidney stones however patient without any urinary complaints and no hydro on bedside sono and no systemic signs of infection so unlikely infected stone and unlikely obstructive. Also possible msk pain. Plan: -urine -mylanta (as per patient's request as she report she has been vomiting) -zofran -toradol -IM bendaryl (pt refused PO) -IVF -reassess, anticipate d/c home with return precautions and recommendation for PMD f/u This clinical encounter is taking place during a federal and state health care emergency attributable to the novel Davidson Virus pandemic. The [place] of the Department of Health and Human Services has declared, pursuant to the Public Health Service Act 319F-3 (42 U.S.C. 247d-6d), that a covered persons activities related to medical countermeasures against COVID-19 will be immune from liability under Federal and State law. 10/19/19 14:02 Pt. resting comfortably after medications. Urine likely contaminated and as patient without any urinary complaints will hold on abx for now and wait for results of culture. Pt. to be d/misty home with recommendation for NSAID at home as needed for pain and PMD f/u. Discharge - Discharge Information Problems reviewed: Yes Clinical Impression/Diagnosis: Nausea Back pain Qualifiers: Back pain location: thoracic back pain Chronicity: unspecified Back pain laterality: right Qualified Code(s): M54.6 - Pain in thoracic spine Condition: Stable - Follow up/Referral Referrals: Romero Cole MD [Primary Care Provider] - - Patient Discharge Instructions Patient Printed Discharge Instructions: Kidney Stones -- Adult, DI for Thoracic Back Pain Additional Instructions: You were seen in the Emergency Department for evaluation of back pain. Your bedside ultrasound and urine labs were unremarkable. Review the handouts provided at discharge. Follow up with your primary care doctor and Urologist within a week. For pain you may take Tylenol 650mg every 6 hours and Ibuprofen 600mg every 6-8 hours, alternating them each time. Return to the Emergency Department if you develop fevers, chest pain, trouble breathing, worsening pain, change in sensation, worsening symptoms, or any new/concerning symptoms. - Post Discharge Activity
[2019-10-19 11:49] LABS: EPI CELLS >36 /uL (0-25.1); HYALINE CASTS 4 /uL (0-3.1); PH,URINE 6.5 (5.0-8.0); URINE APPEARANCE CLOUDY; URINE BACTERIA 5013 /uL (0-1359); URINE BILIRUBIN NEGATIVE (NEGATIVE); URINE COLOR YELLOW; URINE GLUCOSE (UA) 1+ (NEGATIVE); URINE KETONE 1+ (NEGATIVE); URINE LEUK ESTERASE NEGATIVE (NEGATIVE); URINE NITRITE NEGATIVE (NEGATIVE); URINE PROTEIN 3+ (NEGATIVE); URINE RBC 24 /uL (0-23.9); URINE UROBILINOGEN 0.2 mg/dL (0.2-1.0); URINE WBC 33 /uL (0-25.8)
== END 2019-10-19 14:18 | disposition home or self-care (01) ==
LOC: JER 09:36
PROC: 3E023GC Introduction of Other Therapeutic Substance into Muscle, Percutaneous Approach (ICD-10-PCS; principal; 2019-10-19)
PROC: 3E033GC Introduction of Other Therapeutic Substance into Peripheral Vein, Percutaneous Approach (ICD-10-PCS; principal; 2019-10-19)
DX: M54.6 Pain in thoracic spine (principal); R11.0 Nausea
CPT/HCPCS: 81003; 87077; 87086; 96372; 96374; 96375; 99284-25

== ENCOUNTER 2020-01-07 05:55 | Inpatient (IN) | payer OTHER ==
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
[2020-01-07] MEDS ORDERED: MAG HYDROX/AL HYDROX/SIMETH -MYLANTA- ORAL SUSPENSION PO ONE (06:46)
[2020-01-07] MEDS ORDERED: ONDANSETRON *ODT* 4 MG TABLET SL ONE (06:46)
[2020-01-07] MEDS ORDERED: FAMOTIDINE 20 MG TABLET PO ONE (06:46)
[2020-01-07] MEDS ORDERED: MAG HYDROX/AL HYDROX/SIMETH 30 ML UNIT-DOSE CUP ONE (06:58)
[2020-01-07] MEDS ORDERED: FAMOTIDINE 20 MG TABLET ONE (06:58)
[2020-01-07] MEDS ORDERED: ONDANSETRON *ODT* 4 MG TABLET ONE (06:58)
--- NOTE | 2020-01-07 07:17 | PDOC ---
*Physical Exam - Vital Signs Last Vital Signs Temp Pulse Resp BP Pulse Ox 98.6 F 111 H 20 167/111 H 97 01/07/20 05:57 01/07/20 05:57 01/07/20 05:57 01/07/20 05:57 01/07/20 05:57 ED Treatment Course - LABORATORY CBC & Chemistry Diagram: 01/07/20 07:35 01/07/20 11:44 - Medications Given in the ED: ED Medications Discontinued Medications Generic Name Dose Route Start Last Admin Trade Name Cosme PRN Reason Stop Dose Admin Al Hydroxide/Mg Hydroxide 30 ml 01/07/20 06:46 01/07/20 07:07 Mylanta Suspension - PO 01/07/20 06:47 30 ml ONCE ONE Administration Famotidine 20 mg 01/07/20 06:46 01/07/20 07:07 Pepcid - PO 01/07/20 06:47 20 mg ONCE ONE Administration Ondansetron HCl 4 mg 01/07/20 06:46 01/07/20 07:07 Zofran Odt - SL 01/07/20 06:47 4 mg ONCE ONE Administration Medical Decision Making - Medical Decision Making 01/07/20 07:16 Pt received on s/o from Dr. Suggs. 39F presenting with abdominal pain and nausea and vomiting. See prior provider note. Will obtain cbc, cmp, lipase. 01/07/20 08:10 EKG shows 106 bpm, sinus tachycardia, no axis deviation, no ST elevation, QTc 462. Pt reassessed. Anxious and hyperventilating. Will give ativan. 01/07/20 08:29 Labs reviewed. Laboratory Last Values WBC 17.9 K/mm3 (4.0-10.0) H 01/07/20 07:35 RBC 4.88 M/mm3 (3.60-5.2) 01/07/20 07:35 Hgb 15.4 GM/dL (10.7-15.3) H 01/07/20 07:35 Hct 44.9 % (32.4-45.2) D 01/07/20 07:35 MCV 92.0 fl (80-96) 01/07/20 07:35 MCH 31.5 pg (25.7-33.7) 01/07/20 07:35 MCHC 34.2 g/dl (32.0-36.0) 01/07/20 07:35 RDW 12.7 % (11.6-15.6) 01/07/20 07:35 Plt Count 358 K/MM3 (134-434) 01/07/20 07:35 MPV 9.1 fl (7.5-11.1) 01/07/20 07:35 Absolute Neuts (auto) 14.0 K/mm3 (1.5-8.0) H 01/07/20 07:35 Neutrophils % 78.1 % (42.8-82.8) D 01/07/20 07:35 Lymphocytes % 12.7 % (8-40) D 01/07/20 07:35 Monocytes % 9.0 % (3.8-10.2) 01/07/20 07:35 Eosinophils % 0.0 % (0-4.5) D 01/07/20 07:35 Basophils % 0.2 % (0-2.0) 01/07/20 07:35 Nucleated RBC % 0 % (0-0) 01/07/20 07:35 Sodium 134 mmol/L (136-145) L 01/07/20 07:35 Potassium 2.6 mmol/L (3.5-5.1) L* 01/07/20 07:35 Chloride 91 mmol/L (98-107) L 01/07/20 07:35 Carbon Dioxide 30 mmol/L (21-32) 01/07/20 07:35 Anion Gap 13 MMOL/L (8-16) 01/07/20 07:35 BUN 14.5 mg/dL (7-18) 01/07/20 07:35 Creatinine 1.1 mg/dL (0.55-1.3) 01/07/20 07:35 Est GFR (CKD-EPI)AfAm 73.24 01/07/20 07:35 Est GFR (CKD-EPI)NonAf 63.19 01/07/20 07:35 Random Glucose 122 mg/dL (74-106) H 01/07/20 07:35 Calcium 11.0 mg/dL (8.5-10.1) H 01/07/20 07:35 Total Bilirubin 0.8 mg/dL (0.2-1) 01/07/20 07:35 AST 20 U/L (15-37) 01/07/20 07:35 ALT 20 U/L (13-61) 01/07/20 07:35 Alkaline Phosphatase 72 U/L (45-117) 01/07/20 07:35 Creatine Kinase 276 U/L (26-192) H 01/07/20 07:35 Troponin I < 0.02 ng/ml (0.00-0.05) 01/07/20 07:35 Total Protein 8.7 g/dl (6.4-8.2) H 01/07/20 07:35 Albumin 4.6 g/dl (3.4-5.0) 01/07/20 07:35 Lipase 196 U/L (73-393) 01/07/20 07:35 Pt hypokalemic. Will start K-rider and PO potassium. 01/07/20 11:32 D/w Dr. Mullins who accepts the patient for admission. Discharge - Discharge Information Problems reviewed: Yes Clinical Impression/Diagnosis: Hypokalemia Nausea & vomiting Qualifiers: Vomiting type: unspecified Condition: Stable - Admission Yes - Follow up/Referral - Patient Discharge Instructions - Post Discharge Activity
[2020-01-07] MEDS ORDERED: ACETAMINOPHEN 325 MG TABLET (FP) PO ONE (07:37)
[2020-01-07] MEDS ORDERED: LORazepam 2 MG/ML SDV VIAL ONE ×2 (07:51→08:36)
[2020-01-07 07:55] LABS: BASO % 0.2 % (0-2.0); HEMATOCRIT 44.9 % (32.4-45.2); HEMOGLOBIN 15.4 GM/dL (10.7-15.3); LYMPH % 12.7 % (8-40); MCH 31.5 pg (25.7-33.7); MCHC 34.2 g/dl (32.0-36.0); MEAN PLT VOLUME 9.1 fl (7.5-11.1); NEUT % 78.1 % (42.8-82.8); PLATELET COUNT 358 K/MM3 (134-434); RBC 4.88 M/mm3 (3.60-5.2); RDW 12.7 % (11.6-15.6); WHITE BLOOD COUNT 17.9 K/mm3 (4.0-10.0)
[2020-01-07 08:24] LABS: ALBUMIN 4.6 g/dl (3.4-5.0); ALK PHOS 72 U/L (45-117); BILIRUBIN,TOTAL 0.8 mg/dL (0.2-1); BLOOD UREA NITROGEN 14.5 mg/dL (7-18); CHLORIDE 91 mmol/L (98-107); CO2 30 mmol/L (21-32); CREATININE 1.1 mg/dL (0.55-1.3); GLUCOSE,RANDOM 122 mg/dL (74-106); LIPASE 196 U/L (73-393); SGOT/AST 20 U/L (15-37); SGPT/ALT 20 U/L (13-61); SODIUM 134 mmol/L (136-145); TOT PROT 8.7 g/dl (6.4-8.2)
[2020-01-07 08:25] LABS: ANION GAP 13 MMOL/L (8-16)
[2020-01-07 08:27] LABS: POTASSIUM 2.6 mmol/L (3.5-5.1)
[2020-01-07] MEDS ORDERED: POTASSIUM CHLORIDE TABS 20 MEQ TABLET.ER (FP) PO ONE ×4 (08:28→11:59)
[2020-01-07] MEDS ORDERED: KCL 10 MEQ IVPB 10 MEQ/100 ML INFUS.BAG IVPB SCH (08:30)
[2020-01-07] MEDS ORDERED: ACETAMINOPHEN 325 MG TABLET (FP) ONE (08:35)
[2020-01-07] MEDS ORDERED: KCL 10 MEQ IVPB 10 MEQ/100 ML INFUS.BAG IVPB ONE (08:37)
[2020-01-07 09:49] LABS: MAGNESIUM 1.8 mg/dL (1.8-2.4)
--- NOTE | 2020-01-07 11:49 | EKG ---
Test Reason : Blood Pressure : / mmHG Vent. Rate : 106 BPM Atrial Rate : 106 BPM P-R Int : 126 ms QRS Dur : 076 ms QT Int : 348 ms P-R-T Axes : 077 018 043 degrees QTc Int : 462 ms SINUS TACHYCARDIA RIGHT ATRIAL ENLARGEMENT NONSPECIFIC ST ABNORMALITY ABNORMAL ECG WHEN COMPARED WITH ECG OF 03-DEC-2019 10:49, VENT. RATE HAS INCREASED BY [address] NOW DEPRESSED IN INFERIOR LEADS NON-SPECIFIC CHANGE IN ST SEGMENT IN ANTERIOR LEADS Confirmed by TITUS BUENO MD ([id number]) on 01/07/2020 11:48:53 AM Referred By: Confirmed By:TITUS BUENO MD
[2020-01-07 12:50] LABS: BLOOD UREA NITROGEN 13.5 mg/dL (7-18); CREATININE 0.9 mg/dL (0.55-1.3); POTASSIUM 3.5 mmol/L (3.5-5.1)
[2020-01-07 16:28] VITALS: BMI 30.2
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
[2020-01-07] MEDS ORDERED: PANTOPRAZOLE 40 MG TABLET PO SCH (18:30)
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
[2020-01-07] MEDS ORDERED: ONDANSETRON 4 MG/2 ML VIAL IVPUSH PRN (18:37)
[2020-01-07] MEDS: ENOXAPARIN NA (PORCINE) 40 MG/0.4 ML DISP.SYRIN SQ SCH (19:22)
[2020-01-07] MEDS: FAMOTIDINE 20 MG TABLET PO SCH ×2 (19:23→19:59)
[2020-01-07 20:10] LABS: EPI CELLS 18 /uL (0-25.1); HYALINE CASTS 0 /uL (0-3.1); PH,URINE >= 9.0 (5.0-8.0); URINE APPEARANCE CLEAR; URINE BACTERIA 179 /uL (0-1359); URINE BILIRUBIN NEGATIVE (NEGATIVE); URINE COLOR YELLOW; URINE GLUCOSE (UA) NEGATIVE (NEGATIVE); URINE KETONE NEGATIVE (NEGATIVE); URINE LEUK ESTERASE TRACE (NEGATIVE); URINE NITRITE NEGATIVE (NEGATIVE); URINE PROTEIN 1+ (NEGATIVE); URINE RBC 3 /uL (0-23.9); URINE UROBILINOGEN 0.2 mg/dL (0.2-1.0); URINE WBC 34 /uL (0-25.8)
[2020-01-07 21:50] LABS: BASO % 0.5 % (0-2.0); EOS % 0.2 % (0-4.5); HEMATOCRIT 39.6 % (32.4-45.2); HEMOGLOBIN 13.5 GM/dL (10.7-15.3); LYMPH % 31.4 % (8-40); MCHC 34.1 g/dl (32.0-36.0); MEAN CELL VOLUME 93.9 fl (80-96); MEAN PLT VOLUME 9.4 fl (7.5-11.1); NEUT % 58.9 % (42.8-82.8); PLATELET COUNT 307 K/MM3 (134-434); RBC 4.21 M/mm3 (3.60-5.2); RDW 13.2 % (11.6-15.6); WHITE BLOOD COUNT 14.3 K/mm3 (4.0-10.0)
[2020-01-08] MEDS: FAMOTIDINE 20 MG TABLET PO SCH (09:45)
[2020-01-08] MEDS: ENOXAPARIN NA (PORCINE) 40 MG/0.4 ML DISP.SYRIN SQ SCH ×2 (09:46→09:56)
[2020-01-08 09:55] VITALS: BP 108/70; PULSE 59; TEMP 98
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
== END 2020-01-08 10:37 | disposition left against medical advice (07) | DRG 249 ==
LOC: JER 05:55 → JERBED 11:31 → J7W 12:53
PROVIDERS: ADMIT Internal Medicine
DX: R11.15 Cyclical vomiting syndrome unrelated to migraine (principal); F41.9 Anxiety disorder, unspecified; M54.9 Dorsalgia, unspecified; E87.6 Hypokalemia; F17.210 Nicotine dependence, cigarettes, uncomplicated; R00.0 Tachycardia, unspecified; K29.00 Acute gastritis without bleeding; F12.188 Cannabis abuse with other cannabis-induced disorder; R06.4 Hyperventilation; S00.12XA Contusion of left eyelid and periocular area, initial encounter; D72.829 Elevated white blood cell count, unspecified; D50.0 Iron deficiency anemia secondary to blood loss (chronic)
CPT/HCPCS: 36415; 80048; 80053; 81003; 82550; 82553; 83690; 83735; 84484; 84702; 84703; 85025; 93005; 93010; 99285-25; Q0162

== ENCOUNTER 2020-01-31 08:42 | Emergency (ER) | payer OTHER ==
[2020-01-31 08:52] VITALS: BMI 31.1
--- NOTE | 2020-01-31 08:52 | PDOC ---
History of Present Illness - General Chief Complaint: Pain Stated Complaint: CHEST PAIN History Source: Patient Exam Limitations: No Limitations - History of Present Illness Initial Comments: 01/31/20 08:52 Maida Waldrop is a 39F with PMH GERD, MDD and anxiety c/b history of suicidal ideation, chronic back pain, nephrolithiasis, nephrolithiasis, polysubstance abuse (benzo/opiate/CBD & hyperemesis), s/p cholecystectomy and appendectomy, multiple visits to [facility] ED complaining of abd pain, now presents today with acute onset abd pain with nausea and vomiting. 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 No sick contacts, unable to tolerate PO, no recent spoiled food exposure. Denies BELTRAN, fever, chills, urinary sx. Says pain is similar to prior episodes but worse than her normal. Demanding opiates for pain control. Allergies to Reglan and diclofenac. PSH noah and appy Denies alcohol/drug/tobacco use in the last 2 days. Past History - Medical History Allergies/Adverse Reactions: Allergies Allergy/AdvReac Type Severity Reaction Status Date / Time metoclopramide HCl Allergy Intermediate Itching Verified 01/31/20 10:52 [From Reglan] ketorolac [From Toradol] Allergy Mild Hives Verified 01/31/20 10:52 Home Medications: Ambulatory Orders Ibuprofen 600 mg PO PRN 12/02/19 Sertraline HCl [Zoloft -] 25 mg PO DAILY 12/02/19 Cefuroxime Axetil [Ceftin -] 500 mg PO Q12H 5 Days #10 tablet 12/03/19 Pantoprazole Sodium [Protonix] 40 mg PO DAILY #30 tablet. 01/08/20 Anemia: No Asthma: No Cancer: No Cardiac Disorders: No CVA: No COPD: No CHF: No Dementia: No Diabetes: No GI Disorders: Yes (Hyperemesis gravidarum) Disorders: No HTN: No Hypercholesterolemia: No Kidney Stones: Yes Liver Disease: No Psychiatric Problems: Yes (DEPRESSION) Seizures: No Thyroid Disease: No - Surgical History Abdominal Surgery: Yes Appendectomy: Yes Cardiac Surgery: No Cholecystectomy: No Lung Surgery: No Neurologic Surgery: No Orthopedic Surgery: No - Reproductive History (#): 5 Para: 3 Cervical CA: No Dysfunctional Uterine Bleeding: No Ectopic : Yes Endometrial CA: No PID: No Polycystic Ovaries: No Therapeutic (s) & number: Yes (2) Tubal Ligation: No Spontaneous : 2 - Immunization History Immunization Up to Date: No - Psycho-Social/Smoking History Smoking Status: No Smoking History: Unknown if ever smoked Have you smoked in the past 12 months: Yes Number of Cigarettes Smoked Daily: 12 If you are a former smoker, when did you quit?: 08/2013 Cigars Per Day: 0 'Breaking Loose' booklet given: 12/01/13 Review of Systems - Review of Systems Able to Perform ROS?: Yes Constitutional: No: Symptoms Reported HEENTM: No: Symptoms Reported Respiratory: No: Cough, Shortness of Breath, Wheezing Cardiac (ROS): No: Chest Pain, Lightheadedness, Palpitations, Syncope ABD/GI: Yes: Diarrhea, Nausea, Poor Appetite, Poor Fluid Intake, Vomiting, Abdominal cramping. No: Constipated : No: Burning, Dysuria, Discharge, Hematuria, Incontinence Musculoskeletal: No: Symptoms Reported Integumentary: No: Symptoms Reported Neurological: No: Symptoms reported Endocrine: No: Symptoms Reported Hematologic/Lymphatic: No: Symptoms Reported All Other Systems: Reviewed and Negative *Physical Exam - Physical Exam General Appearance: Yes: Nourished, Appropriately Dressed, Moderate Distress (alternates between lying comfortably and walking without issue and crying and screaming in bed), Obese HEENT: positive: EOMI, MORIAH, Normal Voice, Symmetrical, Pharynx Normal. negative: Scleral Icterus (R), Scleral Icterus (L), Pharyngeal Erythema, Tonsillar Exudate, Tonsillar Erythema Neck: positive: Trachea midline, Supple, Decreased range of motion. negative: Tender, Normal Thyroid, Rigid, Lymphadenopathy (R), Lymphadenopathy (L), Tender lateral, Tender midline Respiratory/Chest: positive: Lungs Clear, Normal Breath Sounds. negative: Chest Tender, Respiratory Distress, Accessory Muscle Use, Crackles, Rales, Rhonchi, Stridor, Wheezing Cardiovascular: positive: Regular Rhythm, Regular Rate. negative: Murmur Gastrointestinal/Abdominal: positive: Normal Bowel Sounds, Soft, Protuberent. negative: Tender (non-tender when examined when calm, will recoil when aware of exam), Organomegaly, Pulsatile Mass, Hernia Musculoskeletal: positive: Normal Inspection. negative: CVA Tenderness, Decreased Range of Motion Extremity: positive: Normal Capillary Refill, Normal Inspection, Normal Range of Motion. negative: Tender Integumentary: positive: Normal Color, Dry, Warm Neurologic: positive: Fully Oriented, Alert, Normal Mood/Affect, Normal Response ED Treatment Course - LABORATORY CBC & Chemistry Diagram: 01/31/20 13:20 01/31/20 13:20 Medical Decision Making - Medical Decision Making 01/31/20 12:45 Patient has history of psychiatric pathology and multiple ED visits for abd pain, here today for another episode of abd pain and vomiting. Broad differential including renal calculi, concerns, UTI, gastritis, intra- abdominal pathology. Lower suspicion for SBO given diarrhea. Per chart review has had WBC elevations and abdominal pain in the past but complete workup has never elucidated a cause of the pain. Evaluating broadly with CBC/CMP/lipase/ECG/CXR. Giving Zofran, IVF, and Pepcid for abdominal pain. 01/31/20 14:46 Patient not feeling better after GI cocktil. CXR no acute pathology. ECG shows sinus tachycardia with HR 108, QTc 495, no CHELSEA/D or TWI. When patient at rest and calm, HR 70s. Rectal temp 97.8F. Labs notable for: - WBC 19.4 - Na 132 - K 3.1 - Cr 1.7 - Ca 12.2 - Mag 1.3 - UA 1+ ketones no blood, unlikely renal calculus Patient complaining of intractable pain and screaming/crying, but has well-known history of acting this way in order to obtain opiates. Patient advised that she will not be getting any opiates at this time as there is no indication. Offered 5mg IM Haldol, patient accepts. 5mg IM Haldol given for pain and agit ation. Given multiple electrolyte abnormalities, will correct with IV NS, 1mg Mag, and IV 20 mEq K in IVF. Repeat CMP/CBC at 3 hours after and 2L NS shows: - WBC 16.9 - Na 134 - K 2.9, but patient has not gotten much of IV K+ - Cr 1.0 - Ca 10.6 WBC and electrolytes improving, K is diluted 2/2 IVF, still getting 20 mEq in 1L NS, giving PO K-dur. Patient exam is improved, more calm, in NAD, feels like she could go home. Unlikely to have any acute pathology given how quickly labs abnormalities corrected with just IVF and electrolytes. Afebrile, VSS. Stable for discharge home with PMD f/u. Discharge - Discharge Information Problems reviewed: Yes Clinical Impression/Diagnosis: Abdominal pain Qualifiers: Abdominal location: generalized Qualified Code(s): R10.84 - Generalized abdominal pain Condition: Improved Disposition: HOME - Admission No - Follow up/Referral Referrals: Gustavo Cole MD [Staff Physician] - - Patient Discharge Instructions Patient Printed Discharge Instructions: DI for Abdominal Pain-Adult Additional Instructions: Today you were evaluated for abdominal pain. Your electrolytes were abnormal, but we have corrected your magnesium, potassium, calcium, and sodium with IV fluids. We gave you some Haldol for pain control. You do not have any evidence of a kidney stone or problems in your stomach. You probably have an upset stomach due to gastritis or food poisoning causing your diarrhea and vomiting. At home, eat bland floods and try to stay hydrated, and the virus causing your symptoms will be cleared on its own. See your primary doctor in the next week for further care. If you experience any worsening pain, nausea, vomiting, diarrhea, or any other new or concerning symptoms, please return to the emergency room. - Post Discharge Activity
[2020-01-31] MEDS ORDERED: MAG HYDROX/AL HYDROX/SIMETH 30 ML UNIT-DOSE CUP PO ONE (09:28)
[2020-01-31] MEDS ORDERED: SODIUM CHLORIDE 1,000 ML IV STA (09:28)
[2020-01-31] MEDS ORDERED: ACETAMINOPHEN 1000 MG/100 ML VIAL (NON FORMULARY) IVPB ONE (09:28)
[2020-01-31] MEDS ORDERED: FAMOTIDINE 20 MG/50 ML IVPB 20 MG/50 ML MG IVPB ONE ×2 (09:28→09:40)
[2020-01-31] MEDS ORDERED: LIDOCAINE VISCOUS 2% ORAL/TOP 20 ML UNIT-DOSE CUP MM ONE (09:28)
[2020-01-31] MEDS ORDERED: ONDANSETRON 4 MG/2 ML VIAL IVPUSH ONE (09:28)
[2020-01-31] MEDS ORDERED: LIDOCAINE VISCOUS 2% ORAL/TOP 20 ML UNIT-DOSE CUP ONE (09:39)
[2020-01-31] MEDS ORDERED: ACETAMINOPHEN INJECTION 100 ML IVPB ONE (09:39)
[2020-01-31] MEDS ORDERED: MAG HYDROX/AL HYDROX/SIMETH 30 ML UNIT-DOSE CUP ONE (09:39)
[2020-01-31 10:07] LABS: BASO % 0.8 % (0-2.0); HEMATOCRIT 45.4 % (32.4-45.2); HEMOGLOBIN 15.3 GM/dL (10.7-15.3); MCH 30.8 pg (25.7-33.7); MCHC 33.6 g/dl (32.0-36.0); MEAN CELL VOLUME 91.7 fl (80-96); MEAN PLT VOLUME 9.4 fl (7.5-11.1); MONO % 8.7 % (3.8-10.2); NEUT % 77.5 % (42.8-82.8); PLATELET COUNT 370 K/MM3 (134-434); RBC 4.95 M/mm3 (3.60-5.2); RDW 13.1 % (11.6-15.6); WHITE BLOOD COUNT 19.4 K/mm3 (4.0-10.0)
[2020-01-31 10:15] LABS: ALBUMIN 4.4 g/dl (3.4-5.0); BILIRUBIN,TOTAL 0.7 mg/dL (0.2-1); BLOOD UREA NITROGEN 11.4 mg/dL (7-18); CALCIUM 12.2 mg/dL (8.5-10.1); CREATININE 1.7 mg/dL (0.55-1.3); MAGNESIUM 1.3 mg/dL (1.8-2.4); POTASSIUM 3.1 mmol/L (3.5-5.1); TOT PROT 8.6 g/dl (6.4-8.2)
[2020-01-31] MEDS ORDERED: CALCIUM GLUCONATE 10% - 1,000 MG/10 ML VIAL IVPB ONE (10:28)
[2020-01-31] MEDS ORDERED: SODIUM CHLORIDE 0.9%/KCL 20 MEQ/1,000 ML INFUS.BAG IV SCH (10:30)
[2020-01-31] MEDS ORDERED: MAGNESIUM SULF 50% (8.12 MEQ/2 ML-1 GM VIAL) IVPB ONE (10:34)
[2020-01-31] MEDS ORDERED: MAGNESIUM 1GM/D5W - 1 GM/100 ML IVPB IVPB ONE (10:35)
[2020-01-31 10:41] VITALS: TEMP 97.8
[2020-01-31] MEDS ORDERED: BACITRACIN 0.9 GM PACKET ONE (11:15)
[2020-01-31] MEDS ORDERED: HALOPERIDOL LACTATE 5 MG/ML ONE (12:16)
[2020-01-31] MEDS ORDERED: HALOPERIDOL LACTATE 5 MG/ML IM ONE (12:21)
--- NOTE | 2020-01-31 12:28 | PDOC ---
Documentation entered by Peace Ho SCRIBE, acting as scribe for Heidi Amin MD. Heidi Amin MD: This documentation has been prepared by the carolibeVic Ana, SCRIBE, under my direction and personally reviewed by me in its entirety. I confirm that the documentation accurately reflects all work, treatment, procedures, and medical decision making performed by me. Attending Attestation - Resident Resident Name: AniketJase - ED Attending Attestation I have performed the following: I have examined & evaluated the patient, The case was reviewed & discussed with the resident, I agree w/resident's findings & plan, Exceptions are as noted - HPI HPI: 01/31/20 09:11 Patient is a 39 year old female with a significant past medical history of gastroesophageal reflux, depression, history of suicidal ideation, anxiety, back pain, nephrolithiasis, hyperemesis gravidarum, GERD, renal colic, polysubstance abuse (xanax, opioids, marijuana, and CBD hyperemesis), s/p cholecystectomy and appendectomy, who presents to the ED with abdominal pain requesting strong painkiller medicines (morphine). Patient screamed she "feels like someone is stabbing me in my stomach" and that the Tylenol is "not working". Patient disclosed that she had multiple episodes of vomiting prior to ED arrival and that she still feels nauseous but has "nothing left in her stomach to throw up". Patient endorses: current nausea and abdominal pain. Allergies: metoclopramide HCl and ketorolac - Physicial Exam PE: 01/31/20 09:57 General: sleeping comfortably in bed, HR 71-74 while sleeping, wakes to voice, non-toxic appearing, NAD Chest: CTAB, good air entry, no wheezes rales or rhonchi CVS: + s1 s2, RRR Abdomen: soft, nt nd, no rebound, no guarding - Medical Decision Making 01/31/20 09:59 39 yo F here with multiple complaints, frequent ED visits with same complaints and workups largely negative for acute serious pathology, low suspicion for ACS, kidney stones, PNA, PE, pyelo, colitis or acute life threatening pathology. More likely cannabinoid induced hyperemesis/cyclic vomiting or gastritis and resulting msk pain and GERD from reports of multiple episodes of vomiting. Of note, patient has not vomiting since arrival in the ED. Plan: -labs -cxr -EKG sinus tach 108 -urine -zofran -IVF -pepcid -reassess, if labs and imaging without any concerning findings anticipate d/c home with return precautions, recommend PMD f/u This clinical encounter is taking place during a federal and state health care emergency attributable to the novel [place] Virus pandemic. The [place] of the Department of Health and Human Services has declared, pursuant to the Public Health Service Act 319F-3 (42 U.S.C. 247d-6d), that a covered persons activities related to medical countermeasures against COVID-19 will be immune from liability under Federal and State law. Discharge - Discharge Information Problems reviewed: Yes Clinical Impression/Diagnosis: Abdominal pain Qualifiers: Abdominal location: generalized Qualified Code(s): R10.84 - Generalized abdominal pain Condition: Improved Disposition: HOME - Follow up/Referral Referrals: Gustavo Cole MD [Staff Physician] - - Patient Discharge Instructions Patient Printed Discharge Instructions: DI for Abdominal Pain-Adult Additional Instructions: Today you were evaluated for abdominal pain. Your electrolytes were abnormal, but we have corrected your magnesium, potassium, calcium, and sodium with IV fluids. We gave you some Haldol for pain control. You do not have any evidence of a kidney stone or problems in your stomach. You probably have an upset stomach due to gastritis or food poisoning causing your diarrhea and vomiting. At home, eat bland floods and try to stay hydrated, and the virus causing your symptoms will be cleared on its own. See your primary doctor in the next week for further care. If you experience any worsening pain, nausea, vomiting, diarrhea, or any other new or concerning symptoms, please return to the emergency room. - Post Discharge Activity
[2020-01-31 12:39] LABS: EPI CELLS 15 /uL (0-25.1); HYALINE CASTS 1 /uL (0-3.1); PH,URINE 6.5 (5.0-8.0); URINE APPEARANCE CLEAR; URINE BACTERIA 163 /uL (0-1359); URINE BILIRUBIN NEGATIVE (NEGATIVE); URINE COLOR YELLOW; URINE GLUCOSE (UA) NEGATIVE (NEGATIVE); URINE KETONE NEGATIVE (NEGATIVE); URINE LEUK ESTERASE NEGATIVE (NEGATIVE); URINE NITRITE NEGATIVE (NEGATIVE); URINE PROTEIN 2+ (NEGATIVE); URINE RBC 11 /uL (0-23.9); URINE UROBILINOGEN 0.2 mg/dL (0.2-1.0); URINE WBC 8 /uL (0-25.8)
[2020-01-31 13:31] LABS: HEMATOCRIT 41.9 % (32.4-45.2); HEMOGLOBIN 13.9 GM/dL (10.7-15.3); MCHC 33.3 g/dl (32.0-36.0); MEAN CELL VOLUME 93.1 fl (80-96); MEAN PLT VOLUME 8.8 fl (7.5-11.1); PLATELET COUNT 322 K/MM3 (134-434); RDW 13.2 % (11.6-15.6); WHITE BLOOD COUNT 16.9 K/mm3 (4.0-10.0)
[2020-01-31 14:16] LABS: ALBUMIN 3.8 g/dl (3.4-5.0); BILIRUBIN,TOTAL 0.5 mg/dL (0.2-1); BLOOD UREA NITROGEN 9.1 mg/dL (7-18); CALCIUM 10.6 mg/dL (8.5-10.1); TOT PROT 7.1 g/dl (6.4-8.2)
[2020-01-31 14:40] LABS: POTASSIUM 2.9 mmol/L (3.5-5.1)
[2020-01-31] MEDS ORDERED: POTASSIUM CHLORIDE TABS 20 MEQ TABLET.ER (FP) PO ONE ×2 (14:44→15:24)
[2020-01-31 15:45] VITALS: BP 139/80; PULSE 76
--- NOTE | 2020-02-01 09:19 | EKG ---
Test Reason : Blood Pressure : / mmHG Vent. Rate : 108 BPM Atrial Rate : 108 BPM P-R Int : 134 ms QRS Dur : 080 ms QT Int : 370 ms P-R-T Axes : 067 009 047 degrees QTc Int : 495 ms SINUS TACHYCARDIA OTHERWISE NORMAL ECG WHEN COMPARED WITH ECG OF 07-JAN-2020 07:49, NO SIGNIFICANT CHANGE WAS FOUND Confirmed by Marcellus Tran ([id number]) on 02/01/2020 9:19:44 AM Referred By: Confirmed By:Marcellus Tran
== END 2020-01-31 15:45 | disposition home or self-care (01) ==
LOC: JER 08:42
PROC: 3E023GC Introduction of Other Therapeutic Substance into Muscle, Percutaneous Approach (ICD-10-PCS; principal; 2020-01-31)
PROC: 3E033GC Introduction of Other Therapeutic Substance into Peripheral Vein, Percutaneous Approach (ICD-10-PCS; principal; 2020-01-31)
DX: R10.84 Generalized abdominal pain (principal)
CPT/HCPCS: 36415; 71046-TC-FY; 80053; 81003; 83690; 83735; 83970; 84703; 85025; 85027; 87086; 93005; 93010; 99285-25; J0131

== ENCOUNTER 2020-02-16 05:00 | Emergency (ER) | payer OTHER ==
[2020-02-16 05:08] VITALS: BMI 30.1
[2020-02-16] MEDS ORDERED: FAMOTIDINE 20 MG/50 ML IVPB 20 MG/50 ML MG IVPB ONE ×2 (05:17→05:25)
[2020-02-16] MEDS ORDERED: MAG HYDROX/AL HYDROX/SIMETH 30 ML UNIT-DOSE CUP PO ONE (05:17)
[2020-02-16] MEDS ORDERED: LACTATED RINGERS SOLUTION 1000 ML INFUS.BAG IV ONE (05:18)
[2020-02-16] MEDS ORDERED: ACETAMINOPHEN 1000 MG/100 ML VIAL (NON FORMULARY) IVPB ONE (05:18)
--- NOTE | 2020-02-16 05:22 | PDOC ---
Attending Attestation - Resident Resident Name: Fozuia Méndez - ED Attending Attestation I have performed the following: I have examined & evaluated the patient, The case was reviewed & discussed with the resident, I agree w/resident's findings & plan - HPI HPI: 02/16/20 07:13 see resident hpi - Physicial Exam PE: 02/16/20 07:13 see resident exam - Medical Decision Making 02/16/20 07:13 39-year-old female seen a multitude of times in this emergency department for abdominal pain now here with abdominal pain again Labs and CT scan for evaluation as patient was hypokalemic on last visit Imaging signed out to dayshift Discharge - Discharge Information Problems reviewed: Yes Clinical Impression/Diagnosis: Abdominal pain Qualifiers: Abdominal location: generalized Qualified Code(s): R10.84 - Generalized abdominal pain Nausea and vomiting Qualifiers: Vomiting type: unspecified Vomiting Intractability: non-intractable Qualified Code(s): R11.2 - Nausea with vomiting, unspecified Condition: Fair - Follow up/Referral Referrals: Romero Cole MD [Primary Care Provider] - - Patient Discharge Instructions - Post Discharge Activity
[2020-02-16] MEDS ORDERED: ACETAMINOPHEN INJECTION 100 ML IVPB ONE (05:25)
[2020-02-16] MEDS ORDERED: MAG HYDROX/AL HYDROX/SIMETH 30 ML UNIT-DOSE CUP ONE (05:25)
[2020-02-16 06:10] LABS: HEMATOCRIT 48.7 % (32.4-45.2); HEMOGLOBIN 16.5 GM/dL (10.7-15.3); MCH 30.9 pg (25.7-33.7); MCHC 33.8 g/dl (32.0-36.0); MEAN CELL VOLUME 91.3 fl (80-96); MEAN PLT VOLUME 8.6 fl (7.5-11.1); PLATELET COUNT 479 K/MM3 (134-434); RBC 5.33 M/mm3 (3.60-5.2); RDW 13.2 % (11.6-15.6); WHITE BLOOD COUNT 16.2 K/mm3 (4.0-10.0)
--- NOTE | 2020-02-16 06:19 | PDOC ---
History of Present Illness - General Chief Complaint: Pain Stated Complaint: ABD PAIN Time Seen by Provider: 02/16/20 05:13 History Source: Patient Exam Limitations: No Limitations - History of Present Illness Initial Comments: 02/16/20 06:01 39y F with PMH of ERD, MDD and anxiety c/b history of suicidal ideation, chronic back pain, nephrolithiasis, nephrolithiasis, polysubstance abuse (benzo/opiate/CBD & hyperemesis), s/p cholecystectomy and appendectomy, multiple visits to [facility] ED complaining of abd pain, now presents today with acute onset abd pain with nausea and vomiting for the past 2 days. Pt states she has had multiple episodes of loose stools, multiple episodes of nbnb emesis, diffuse abdominal pain. Of note pt has been seen here multiple times in the past for the same complaint. Denies fever, back pain, headache, fever, chills. Past History - Medical History Allergies/Adverse Reactions: Allergies Allergy/AdvReac Type Severity Reaction Status Date / Time metoclopramide HCl Allergy Intermediate Itching Verified 02/16/20 05:08 [From Reglan] ketorolac [From Toradol] Allergy Mild Hives Verified 02/16/20 05:08 Home Medications: Ambulatory Orders Ibuprofen 600 mg PO PRN 12/02/19 Sertraline HCl [Zoloft -] 25 mg PO DAILY 12/02/19 Cefuroxime Axetil [Ceftin -] 500 mg PO Q12H 5 Days #10 tablet 12/03/19 Pantoprazole Sodium [Protonix] 40 mg PO DAILY #30 tablet. 01/08/20 Anemia: No Asthma: No Cancer: No Cardiac Disorders: No CVA: No COPD: No CHF: No Dementia: No Diabetes: No GI Disorders: Yes (Hyperemesis gravidarum) Disorders: No HTN: No Hypercholesterolemia: No Kidney Stones: Yes Liver Disease: No Psychiatric Problems: Yes (DEPRESSION) Seizures: No Thyroid Disease: No - Surgical History Abdominal Surgery: Yes Appendectomy: Yes Cardiac Surgery: No Cholecystectomy: No Lung Surgery: No Neurologic Surgery: No Orthopedic Surgery: No - Reproductive History Is Patient Now?: No (#): 5 Para: 3 Cervical CA: No Dysfunctional Uterine Bleeding: No Ectopic : Yes Endometrial CA: No PID: No Polycystic Ovaries: No Therapeutic (s) & number: Yes (2) Tubal Ligation: No Spontaneous : 2 - Immunization History Immunization Up to Date: No - Psycho-Social/Smoking History Smoking Status: No Smoking History: Never smoked Have you smoked in the past 12 months: Yes Number of Cigarettes Smoked Daily: 12 If you are a former smoker, when did you quit?: 08/2013 Cigars Per Day: 0 'Breaking Loose' booklet given: 12/01/13 - Substance Abuse Hx (Audit-C & DAST Scrn) How often the patient has a drink containing alcohol: Monthly or less Number of drinks the patient has on a typical day: 1 or 2 How often the patient has six or more drinks on one occasion: Never Score: In Men: 4 or > Positive; In Women: 3 or > Positive: 1 Screen Result (Pos requires Nsg. Audit-10AR): Negative In the last yr the pt used illegal drug/Rx for NonMed reason: No Score: Yes response is considered Positive: 0 Screen Result (Positive result requires Nsg. DAST-10): Negative Review of Systems - Review of Systems Constitutional: No: Chills, Fever HEENTM: No: Symptoms Reported Respiratory: No: Symptoms reported Cardiac (ROS): No: Symptoms Reported ABD/GI: Yes: See HPI : No: Symptoms Reported Musculoskeletal: Yes: Other (hand cramping). No: Symptoms Reported Integumentary: No: Symptoms Reported Neurological: No: Symptoms reported *Physical Exam - Vital Signs Last Vital Signs Temp Pulse Resp BP Pulse Ox 98.6 F 107 H 20 104/75 98 02/16/20 05:02 02/16/20 05:02 02/16/20 05:02 02/16/20 05:02 02/16/20 05:02 - Physical Exam General Appearance: Yes: Appropriately Dressed, Moderate Distress, Obese HEENT: positive: EOMI, MORIAH. negative: Scleral Icterus (R), Scleral Icterus (L) Neck: positive: Trachea midline, Supple Respiratory/Chest: positive: Lungs Clear, Normal Breath Sounds. negative: Chest Tender, Accessory Muscle Use, Crackles, Rales, Rhonchi, Stridor, Wheezing Cardiovascular: positive: S1, S2, Tachycardia. negative: Edema, JVD, Murmur Vascular Pulses: Dorsalis-Pedis (R): 2+, Doralis-Pedis (L): 2+ Gastrointestinal/Abdominal: positive: Normal Bowel Sounds, Soft. negative: Tender Musculoskeletal: negative: CVA Tenderness Extremity: positive: Normal Capillary Refill. 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 NML intact, Fully Oriented, Alert, Normal Response, Motor Strength 5/5, Other (crying, screaming) ED Treatment Course - LABORATORY CBC & Chemistry Diagram: 02/16/20 05:30 02/16/20 05:30 - RADIOLOGY Radiology Studies Ordered: Category Date Time Status ABDOMEN & PELVIS CT W/O CONTR [CT] Stat CT Scan 02/16/20 05:18 Ordered - Medications Given in the ED: ED Medications Discontinued Medications Generic Name Dose Route Start Last Admin Trade Name Chunq PRN Reason Stop Dose Admin Acetaminophen 1,000 mg 02/16/20 05:18 02/16/20 05:43 Ofirmev Injection - IVPB 02/16/20 05:19 1,000 mg ONCE ONE Administration Al Hydroxide/Mg Hydroxide 30 ml 02/16/20 05:17 02/16/20 05:43 Mylanta Oral Suspension - PO 02/16/20 05:18 30 ml ONCE ONE Administration Famotidine/Sodium Chloride 20 mg in 50 mls @ 100 mls/hr 02/16/20 05:17 02/16/20 05:43 Pepcid 20 Mg Premixed Ivpb - IVPB 02/16/20 05:46 100 mls/hr ONCE ONE Administration Lactated Ringer's 1,000 ml 02/16/20 05:18 02/16/20 05:43 Lactated Ringers Solution IV 02/16/20 05:19 1,000 ml NOW ONE Administration Medical Decision Making - Medical Decision Making 02/16/20 06:21 39y F with pmh of cholecystectomy, appendectomy, gerd/gastritis, polysubstance use presenting to the ER for abdominal pain, n/v/d for the past 2 days. pt has been seen in this ER for the same complaint on multiple occasions. pt is tachycardic on exam, she is crying and screaming. ddx includes sbo, substance use, cyclic vomiting. pt was seen here a few days ago for same, was hypokalemic. will rpt labs. last CT on 11/2019. will get dry scan. -ivf, pepcid, ofirmev. pt has not vomited in ER. pending labs, CT. sign out to day team Discharge - Discharge Information Problems reviewed: Yes Clinical Impression/Diagnosis: Abdominal pain Qualifiers: Abdominal location: generalized Qualified Code(s): R10.84 - Generalized abdominal pain Nausea and vomiting Qualifiers: Vomiting type: unspecified Vomiting Intractability: non-intractable Qualified Code(s): R11.2 - Nausea with vomiting, unspecified Condition: Stable Disposition: HOME - Follow up/Referral Referrals: Romero Cole MD [Primary Care Provider] - - Patient Discharge Instructions Patient Printed Discharge Instructions: DI for Abdominal Pain-Adult Additional Instructions: You came into the emergency department for abdominal pain. CT imaging did not indicate acute pathology. You can take [id number] tylenol or motrin for pain. Follow the instructions on the medication bottle. Make sure you do not take too much medicine. The maximum daily dose for tylenol is 4000mg/day. The maximum daily dose for motrin is 3200mg/day. Follow-up with your primary care provider within 72 hours to discuss this ED visit and to further evaluate your symptoms. Call today or tomorrow morning and make an appointment. Your workup is not complete until you do so. Immediate medical attention is required if you develop: worsening pain, high fevers, persistent nausea, vomiting, or any new or concerning symptoms. If you think you are having an emergency, call for emergency medical services or prese nt to the emergency department right away. - Post Discharge Activity
[2020-02-16 06:35] LABS: ALBUMIN 4.6 g/dl (3.4-5.0); BILIRUBIN,TOTAL 1.1 mg/dL (0.2-1); BLOOD UREA NITROGEN 12.7 mg/dL (7-18); CALCIUM 12.7 mg/dL (8.5-10.1); CREATININE 1.1 mg/dL (0.55-1.3); POTASSIUM 3.8 mmol/L (3.5-5.1); TOT PROT 9.1 g/dl (6.4-8.2)
--- NOTE | 2020-02-16 09:04 | PDOC ---
*Physical Exam - Vital Signs Last Vital Signs Temp Pulse Resp BP Pulse Ox 98.6 F 107 H 20 104/75 98 02/16/20 05:02 02/16/20 05:02 02/16/20 05:02 02/16/20 05:02 02/16/20 05:02 ED Treatment Course - LABORATORY CBC & Chemistry Diagram: 02/16/20 05:30 02/16/20 05:30 - ADDITIONAL ORDERS Additional order review: Laboratory Results 02/16/20 02/16/20 05:30 05:30 Sodium 130 L Potassium 3.8 Chloride 87 L Carbon Dioxide 28 Anion Gap 14 BUN 12.7 Creatinine 1.1 Est GFR (CKD-EPI)AfAm 73.24 Est GFR (CKD-EPI)NonAf 63.19 Random Glucose 111 H Calcium 12.7 H Total Bilirubin 1.1 H AST 30 ALT 20 Alkaline Phosphatase 78 Total Protein 9.1 H Albumin 4.6 Serum , Qual Negative 02/16/20 05:30 RBC 5.33 H MCV 91.3 MCHC 33.8 RDW 13.2 MPV 8.6 - Medications Given in the ED: ED Medications Discontinued Medications Generic Name Dose Route Start Last Admin Trade Name Freq PRN Reason Stop Dose Admin Acetaminophen 1,000 mg 02/16/20 05:18 02/16/20 05:43 Ofirmev Injection - IVPB 02/16/20 05:19 1,000 mg ONCE ONE Administration Al Hydroxide/Mg Hydroxide 30 ml 02/16/20 05:17 02/16/20 05:43 Mylanta Oral Suspension - PO 02/16/20 05:18 30 ml ONCE ONE Administration Famotidine/Sodium Chloride 20 mg in 50 mls @ 100 mls/hr 02/16/20 05:17 02/16/20 05:43 Pepcid 20 Mg Premixed Ivpb - IVPB 02/16/20 05:46 100 mls/hr ONCE ONE Administration Lactated Ringer's 1,000 ml 02/16/20 05:18 02/16/20 05:43 Lactated Ringers Solution IV 02/16/20 05:19 1,000 ml NOW ONE Administration Medical Decision Making - Medical Decision Making Patient signed out by Dr. Méndez 39y F with PMH of ERD, MDD and anxiety c/b history of suicidal ideation, chronic back pain, nephrolithiasis, nephrolithiasis, polysubstance abuse (benzo/opiate/CBD & hyperemesis), s/p cholecystectomy and appendectomy, multiple visits to [facility] ED complaining of abd pain, now presents today with acute onset abd pain with nausea and vomiting for the past [address] as reported by radiology: "EXAM#: TYPE/EXAM: RESULT: [id number] CT/ABDOMEN PELVIS CT W/O CONTR HISTORY PROVIDED: Abdominal pain TECHNIQUE: Sequential axial images were obtained from the domes of the diaphragm through the symphysis pubis. The study is limited without the use of any contrast material. The lung bases are clear. There are multiple calcifications within both upper collecting systems consistent with nonobstructing calculi. There is no evidence of hydronephrosis or obstructive uropathy. The liver, spleen, pancreas and adrenal glands demonstrate no significant abnormalities. The gallbladder has been removed. There is no evidence of intra-abdominal or retroperitoneal lymphadenopathy or fluid collections. There is no evidence of pneumoperitoneum, bowel obstruction or intra-abdominal abscess. There is no CT evidence of acute appendicitis or diverticulitis. Examination of the pelvis demonstrates no evidence of pelvic masses, fluid collections or lymphadenopathy. The urinary bladder is moderately distended. There is no evidence of acute bony pathology. IMPRESSION: 1. Bilateral nephrolithiasis with no evidence of obstructive uropathy. 2. No acute pathology within the abdomen or pelvis. Please see above discussion. Reported By: Adeel Reyes MD 02/16/20 0849 " 02/16/20 09:04 No acute pathology seen on CTAP To follow up with primary care physician Return precautions Stable for discharge Discharge - Discharge Information Problems reviewed: Yes Clinical Impression/Diagnosis: Abdominal pain Qualifiers: Abdominal location: generalized Qualified Code(s): R10.84 - Generalized a bdominal pain Nausea and vomiting Qualifiers: Vomiting type: unspecified Vomiting Intractability: non-intractable Qualified Code(s): R11.2 - Nausea with vomiting, unspecified Condition: Stable Disposition: HOME - Follow up/Referral Referrals: Romero Cole MD [Primary Care Provider] - - Patient Discharge Instructions Patient Printed Discharge Instructions: DI for Abdominal Pain-Adult Additional Instructions: You came into the emergency department for abdominal pain. CT imaging did not indicate acute pathology. You can take [id number] tylenol or motrin for pain. Follow the instructions on the medication bottle. Make sure you do not take too much medicine. The maximum daily dose for tylenol is 4000mg/day. The maximum daily dose for motrin is 3200mg/day. Follow-up with your primary care provider within 72 hours to discuss this ED visit and to further evaluate your symptoms. Call today or tomorrow morning and make an appointment. Your workup is not complete until you do so. Immediate medical attention is required if you develop: worsening pain, high fevers, persistent nausea, vomiting, or any new or concerning symptoms. If you think you are having an emergency, call for emergency medical services or present to the emergency department right away. - Post Discharge Activity
[2020-02-16 09:33] VITALS: BP 128/74; PULSE 88; TEMP 98
== END 2020-02-16 09:34 | disposition home or self-care (01) ==
LOC: JER 05:00
PROC: 3E0333Z Introduction of Anti-inflammatory into Peripheral Vein, Percutaneous Approach (ICD-10-PCS; principal; 2020-02-16)
PROC: 3E033GC Introduction of Other Therapeutic Substance into Peripheral Vein, Percutaneous Approach (ICD-10-PCS; 2020-02-16)
DX: R10.84 Generalized abdominal pain (principal); R11.2 Nausea with vomiting, unspecified
CPT/HCPCS: 36415; 74176-TC; 80053; 84703; 85027; 99284-25; J0131

== ENCOUNTER 2020-06-15 15:23 | Emergency (ER) | payer OTHER ==
[2020-06-15 15:43] VITALS: BP 161/95; BMI 27.4
[2020-06-15] MEDS ORDERED: MAG HYDROX/AL HYDROX/SIMETH -MYLANTA- ORAL SUSPENSION PO ONE (16:48)
[2020-06-15] MEDS ORDERED: LACTATED RINGERS SOLUTION 1000 ML INFUS.BAG IV ONE (16:48)
[2020-06-15] MEDS ORDERED: FAMOTIDINE 20 MG/50 ML IVPB 20 MG/50 ML MG IVPB ONE ×2 (16:48→16:52)
[2020-06-15] MEDS ORDERED: MAG HYDROX/AL HYDROX/SIMETH 30 ML UNIT-DOSE CUP ONE (16:52)
[2020-06-15 17:34] LABS: BASO % 0.6 % (0-2.0); EOS % 0.2 % (0-4.5); HEMATOCRIT 43.1 % (32.4-45.2); HEMOGLOBIN 14.6 GM/dL (10.7-15.3); LYMPH % 29.5 % (8-40); MCH 31.4 pg (25.7-33.7); MEAN CELL VOLUME 92.3 fl (80-96); MONO % 7.2 % (3.8-10.2); NEUT % 62.5 % (42.8-82.8); PLATELET COUNT 384 K/MM3 (134-434); RBC 4.66 M/mm3 (3.60-5.2); RDW 13.1 % (11.6-15.6); WHITE BLOOD COUNT 12.8 K/mm3 (4.0-10.0)
[2020-06-15 18:05] LABS: POTASSIUM 3.3 mmol/L (3.5-5.1)
[2020-06-15 18:07] LABS: CALCIUM 10.6 mg/dL (8.5-10.1)
[2020-06-15 18:08] LABS: ALBUMIN 4.2 g/dl (3.4-5.0); BLOOD UREA NITROGEN 13.4 mg/dL (7-18)
[2020-06-15 18:12] LABS: BILIRUBIN,TOTAL 0.4 mg/dL (0.2-1); TOT PROT 7.9 g/dl (6.4-8.2)
[2020-06-15] MEDS ORDERED: HALOPERIDOL LACTATE 5 MG/ML IV ONE (18:19)
[2020-06-15] MEDS ORDERED: KETAMINE HCL 500 MG/10 ML VIAL IV ONE (18:21)
[2020-06-15] MEDS ORDERED: KETAMINE HCL 200 MG/20 ML VIAL ONE (18:45)
[2020-06-15] MEDS ORDERED: LORazepam 1 MG TABLET PO ONE (19:52)
[2020-06-15] MEDS ORDERED: LORazepam 1 MG TABLET ONE (20:34)
[2020-06-16 02:25] VITALS: TEMP 98.9
[2020-06-16 02:27] VITALS: PULSE 93
== END 2020-06-15 23:39 | disposition home or self-care (01) ==
LOC: JER 15:23
PROC: 3E033GC Introduction of Other Therapeutic Substance into Peripheral Vein, Percutaneous Approach (ICD-10-PCS; principal; 2020-06-15)
PROC: 3E033GC Introduction of Other Therapeutic Substance into Peripheral Vein, Percutaneous Approach (ICD-10-PCS; 2020-06-15)
DX: R19.5 Other fecal abnormalities (principal); R10.9 Unspecified abdominal pain; N83.209 Unspecified ovarian cyst, unspecified side
CPT/HCPCS: 36415; 74176-TC; 80053; 80307; 82272; 83690; 84703; 85025; 93005; 93010; 99285-25

== ENCOUNTER 2020-07-10 08:13 | Observation (INO) | payer OTHER ==
[2020-07-10 08:39] VITALS: TEMP 98.5; BMI 28.3
[2020-07-10] MEDS ORDERED: ONDANSETRON 4 MG/2 ML VIAL IVPUSH ONE ×2 (08:42→21:54)
[2020-07-10] MEDS ORDERED: FAMOTIDINE 20 MG/50 ML IVPB 20 MG/50 ML MG IVPB ONE ×2 (08:42→08:48)
[2020-07-10] MEDS ORDERED: SODIUM CHLORIDE 1,000 ML IV STA ×2 (08:42→11:15)
[2020-07-10] MEDS ORDERED: ACETAMINOPHEN 1000 MG/100 ML VIAL (NON FORMULARY) IVPB ONE (08:42)
[2020-07-10] MEDS ORDERED: ONDANSETRON 4 MG/2 ML VIAL ONE (08:48)
[2020-07-10] MEDS ORDERED: ACETAMINOPHEN INJECTION 100 ML IVPB ONE (08:48)
[2020-07-10] MEDS ORDERED: morphine CARPU-JECT 4 MG/1 ML DISP.SYRIN IVPUSH ONE ×2 (10:19→13:10)
[2020-07-10 10:26] LABS: BASO % 0.2 % (0-2.0); EOS % 0.2 % (0-4.5); HEMATOCRIT 40.2 % (32.4-45.2); HEMOGLOBIN 13.6 GM/dL (10.7-15.3); MCH 31.9 pg (25.7-33.7); MEAN PLT VOLUME 8.2 fl (7.5-11.1); MONO % 10.2 % (3.8-10.2); NEUT % 66.4 % (42.8-82.8); PLATELET COUNT 501 K/MM3 (134-434); RBC 4.27 M/mm3 (3.60-5.2); RDW 13.5 % (11.6-15.6); WHITE BLOOD COUNT 11.4 K/mm3 (4.0-10.0)
[2020-07-10] MEDS ORDERED: morphine SULFATE 4 MG/ML VIAL ONE (10:26)
[2020-07-10 10:27] LABS: INR 1.13 (0.83-1.09); PROTHROMBIN TIME (PATIENT) 13.6 SEC (9.7-13.0)
[2020-07-10 10:30] LABS: ACTIVATED PTT 25.3 SECONDS (25.2-36.5)
[2020-07-10 10:34] LABS: POTASSIUM 3.1 mmol/L (3.5-5.1)
[2020-07-10 10:36] LABS: ALBUMIN 4.5 g/dl (3.4-5.0); CALCIUM 12.4 mg/dL (8.5-10.1)
[2020-07-10 10:38] LABS: BLOOD UREA NITROGEN 7.2 mg/dL (7-18)
[2020-07-10 10:41] LABS: BILIRUBIN,TOTAL 0.6 mg/dL (0.2-1); TOT PROT 8.2 g/dl (6.4-8.2)
[2020-07-10] MEDS ORDERED: MAG HYDROX/AL HYDROX/SIMETH 30 ML UNIT-DOSE CUP PO ONE (11:15)
[2020-07-10] MEDS ORDERED: MAGNESIUM SULF 50% (8.12 MEQ/2 ML-1 GM VIAL) IVPB ONE (11:19)
[2020-07-10] MEDS ORDERED: MAG HYDROX/AL HYDROX/SIMETH 30 ML UNIT-DOSE CUP ONE (11:25)
[2020-07-10] MEDS ORDERED: KCL 10 MEQ IVPB 20 MEQ/200 ML INFUS.BAG IVPB ONE (11:26)
[2020-07-10] MEDS ORDERED: MAGNESIUM 1GM/D5W - 1 GM/100 ML IVPB IVPB ONE (11:26)
[2020-07-10] MEDS: KCL 10 MEQ IVPB 10 MEQ/100 ML INFUS.BAG IVPB SCH ×2 (11:30→12:36)
[2020-07-10 12:47] LABS: URINE APPEARANCE CLOUDY; URINE BILIRUBIN NEGATIVE (NEGATIVE); URINE COLOR YELLOW; URINE GLUCOSE (UA) NEGATIVE (NEGATIVE); URINE KETONE NEGATIVE (NEGATIVE); URINE LEUK ESTERASE NEGATIVE (NEGATIVE); URINE NITRITE NEGATIVE (NEGATIVE); URINE PROTEIN NEGATIVE (NEGATIVE); URINE UROBILINOGEN 0.2 mg/dL (0.2-1.0)
[2020-07-10] MEDS ORDERED: DICYCLOMINE HCL 20 MG TABLET PO ONE (13:03)
[2020-07-10] MEDS ORDERED: DICYCLOMINE HCL 10 MG CAPSULE ONE (13:05)
[2020-07-10] MEDS ORDERED: HALOPERIDOL LACTATE 5 MG/ML IM ONE (13:12)
[2020-07-10] MEDS ORDERED: HALOPERIDOL LACTATE 5 MG/ML ONE (13:18)
[2020-07-10] MEDS ORDERED: POTASSIUM CHLORIDE TABS 20 MEQ TABLET.ER (FP) PO ONE ×2 (15:38→15:43)
[2020-07-10] MEDS ORDERED: SODIUM CHLORIDE 1,000 ML IV SCH (16:45)
[2020-07-10] MEDS ORDERED: ACETAMINOPHEN 1000 MG/100 ML VIAL (NON FORMULARY) IVPB PRN (16:52)
[2020-07-10 18:23] LABS: METHADONE, UR NEGATIVE ng/ml (CUTOFF=300); PHENCYCLIDINE,URINE NEGATIVE ng/ml (CUTOFF=25)
[2020-07-10 18:34] LABS: COCAINE, UR NEGATIVE ng/ml (CUTOFF=300); URINE AMPHETAMINES NEGATIVE ng/ml (CUTOFF=500); URINE BARBITURATES NEGATIVE ng/ml (CUTOFF=200); URINE BENZODIAZEPINES NEGATIVE ng/ml (CUTOFF=200)
[2020-07-10 18:55] LABS: OPIATES, URI POSITIVE ng/ml (CUTOFF=300)
[2020-07-10] MEDS ORDERED: ONDANSETRON *ODT* 4 MG TABLET ONE (21:58)
[2020-07-10] MEDS ORDERED: ONDANSETRON *ODT* 4 MG TABLET SL ONE (21:58)
[2020-07-10 23:57] VITALS: BP 139/96; PULSE 90
== END 2020-07-10 23:57 | disposition left against medical advice (07) ==
LOC: JER 08:13 → JERBED 12:53 → INTOOBSV 12:53
PROVIDERS: ADMIT Student in an Organized Health Care Education/Training Program; ATTEND Internal Medicine
PROC: 3E0337Z Introduction of Electrolytic and Water Balance Substance into Peripheral Vein, Percutaneous Approach (ICD-10-PCS; principal; 2020-07-10)
PROC: 3E033GC Introduction of Other Therapeutic Substance into Peripheral Vein, Percutaneous Approach (ICD-10-PCS; 2020-07-10)
PROC: 3E033NZ Introduction of Analgesics, Hypnotics, Sedatives into Peripheral Vein, Percutaneous Approach (ICD-10-PCS; 2020-07-10)
PROC: 3E023NZ Introduction of Analgesics, Hypnotics, Sedatives into Muscle, Percutaneous Approach (ICD-10-PCS; 2020-07-10)
DX: R10.84 Generalized abdominal pain (principal); F19.10 Other psychoactive substance abuse, uncomplicated; K21.9 Gastro-esophageal reflux disease without esophagitis; F12.10 Cannabis abuse, uncomplicated; N20.0 Calculus of kidney; E87.5 Hyperkalemia; N83.202 Unspecified ovarian cyst, left side; G89.29 Other chronic pain; M54.9 Dorsalgia, unspecified; Z91.5 Personal history of self-harm; F41.8 Other specified anxiety disorders; Z87.891 Personal history of nicotine dependence; Z88.8 Allergy status to other drugs, medicaments and biological substances; Z29.9 Encounter for prophylactic measures, unspecified
CPT/HCPCS: 36415; 74177-TC; 80053; 80307; 81003; 83605; 83690; 83735; 84703; 85025; 85610; 85730; 87086; 93005; 93010; 96361; 96365; 96367; 96372; 96375; 99285-25; C9803; G0378; J0131; Q0162; Q9967; U0003

== ENCOUNTER 2020-07-15 14:37 | Emergency (ER) | payer OTHER ==
[2020-07-15 15:02] VITALS: BP 150/106; PULSE 95; TEMP 99; BMI 30.1
[2020-07-15] MEDS ORDERED: ACETAMINOPHEN 500 MG TABLET (FP) PO ONE (15:22)
[2020-07-15] MEDS ORDERED: ONDANSETRON *ODT* 4 MG TABLET SL ONE (15:22)
[2020-07-15] MEDS ORDERED: ONDANSETRON *ODT* 4 MG TABLET ONE (15:32)
[2020-07-15] MEDS ORDERED: ACETAMINOPHEN 325 MG TABLET (FP) ONE (15:32)
[2020-07-15] MEDS ORDERED: HALOPERIDOL LACTATE 5 MG/ML IM ONE (16:29)
[2020-07-15] MEDS ORDERED: HALOPERIDOL LACTATE 5 MG/ML ONE (16:33)
== END 2020-07-15 17:00 | disposition left against medical advice (07) ==
LOC: JER 14:37
PROC: 3E023NZ Introduction of Analgesics, Hypnotics, Sedatives into Muscle, Percutaneous Approach (ICD-10-PCS; principal; 2020-07-15)
DX: F11.20 Opioid dependence, uncomplicated (principal); R10.9 Unspecified abdominal pain
CPT/HCPCS: 99284-25; Q0162

== ENCOUNTER 2020-08-10 09:14 | Emergency (ER) | payer OTHER ==
[2020-08-10 09:20] VITALS: BP 149/111; PULSE 81; TEMP 98.6; BMI 30.1
[2020-08-10] MEDS ORDERED: ONDANSETRON 4 MG TABLET PO ONE (09:51)
[2020-08-10] MEDS ORDERED: ACETAMINOPHEN 500 MG TABLET (FP) PO ONE (09:51)
[2020-08-10] MEDS ORDERED: METOCLOPRAMIDE HCL 10 MG TABLET (FP) PO ONE (09:59)
[2020-08-10] MEDS ORDERED: ACETAMINOPHEN 325 MG TABLET (FP) ONE (09:59)
[2020-08-10] MEDS ORDERED: ONDANSETRON *ODT* 4 MG TABLET ONE (10:02)
== END 2020-08-10 11:00 | disposition left against medical advice (07) ==
LOC: JER 09:14
DX: R10.30 Lower abdominal pain, unspecified (principal); F11.20 Opioid dependence, uncomplicated
CPT/HCPCS: 99283-25

== ENCOUNTER 2020-11-23 11:51 | Inpatient (IN) | payer OTHER ==
[2020-11-23] MEDS ORDERED: ACETAMINOPHEN 1000 MG/100 ML VIAL (NON FORMULARY) IVPB ONE (13:17)
[2020-11-23] MEDS ORDERED: ONDANSETRON 4 MG/2 ML VIAL IVPUSH ONE (13:17)
[2020-11-23] MEDS ORDERED: SODIUM CHLORIDE 0.9% 1000 ML INFUS.BAG IV ONE ×2 (13:17→16:16)
[2020-11-23] MEDS ORDERED: ONDANSETRON *ODT* 4 MG TABLET ONE (14:07)
[2020-11-23] MEDS ORDERED: HALOPERIDOL LACTATE 5 MG/ML ONE (14:07)
[2020-11-23] MEDS ORDERED: HALOPERIDOL LACTATE 5 MG/ML IM ONE (14:16)
[2020-11-23 14:28] LABS: BASO % 0.3 % (0-2.0); HEMATOCRIT 43.3 % (32.4-45.2); HEMOGLOBIN 15.1 GM/dL (10.7-15.3); LYMPH % 13.2 % (8-40); MCH 31.2 pg (25.7-33.7); MEAN CELL VOLUME 89.1 fl (80-96); MEAN PLT VOLUME 8.5 fl (7.5-11.1); MONO % 6.1 % (3.8-10.2); NEUT % 80.4 % (42.8-82.8); PLATELET COUNT 495 K/MM3 (134-434); RBC 4.85 M/mm3 (3.60-5.2); RDW 14.4 % (11.6-15.6); WHITE BLOOD COUNT 22.9 K/mm3 (4.0-10.0)
[2020-11-23] MEDS ORDERED: ACETAMINOPHEN INJECTION 100 ML IVPB ONE (14:46)
[2020-11-23 14:48] LABS: CHLORIDE 83 mmol/L (98-107); SODIUM 129 mmol/L (136-145)
[2020-11-23 14:50] LABS: CALCIUM 12.9 mg/dL (8.5-10.1)
[2020-11-23 14:51] LABS: ALBUMIN 5.1 g/dl (3.4-5.0); BLOOD UREA NITROGEN 9.4 mg/dL (7-18); CO2 30 mmol/L (21-32); LIPASE 156 U/L (73-393)
[2020-11-23 14:53] LABS: GLUCOSE,RANDOM 156 mg/dL (74-106)
[2020-11-23 14:54] LABS: CREATININE 1.1 mg/dL (0.55-1.3); SGOT/AST 44 U/L (15-37); SGPT/ALT 27 U/L (13-61)
[2020-11-23 14:55] LABS: BILIRUBIN,TOTAL 0.7 mg/dL (0.2-1)
[2020-11-23 14:56] LABS: ALK PHOS 119 U/L (45-117); ANION GAP 17 MMOL/L (8-16); TOT PROT 9.3 g/dl (6.4-8.2)
[2020-11-23 14:57] LABS: ANISOCYTOSIS 0; MACROCYTOSIS 0; PLATELET ESTIMATE INCREASED
[2020-11-23] MEDS ORDERED: ONDANSETRON *ODT* 4 MG TABLET SL ONE (15:08)
[2020-11-23] MEDS ORDERED: MAG HYDROX/AL HYDROX/SIMETH 30 ML UNIT-DOSE CUP ONE (16:08)
[2020-11-23] MEDS ORDERED: LORazepam 2 MG/ML SDV VIAL ONE (16:14)
[2020-11-23] MEDS ORDERED: POTASSIUM CHLORIDE TABS 20 MEQ TABLET.ER (FP) PO ONE (16:14)
[2020-11-23] MEDS ORDERED: LORazepam 2 MG/ML SDV VIAL IVPUSH ONE (16:15)
[2020-11-23] MEDS ORDERED: POTASSIUM CHLORIDE TABS 10 MEQ TABLET.ER (FP) ONE (16:18)
[2020-11-23 16:28] LABS: MAGNESIUM 1.4 mg/dL (1.8-2.4)
[2020-11-23] MEDS ORDERED: PIPERACILLIN/TAZOB 3.375 GM 3.375 GM in DEXTROSE 5%-WATER - 50 ML IVPB ONE (16:34)
[2020-11-23] MEDS ORDERED: PIPERACILLIN/TAZOB 3.375 GM 3.375 GM/50 ML BAG IVPB ONE (17:06)
[2020-11-23] MEDS ORDERED: MAGNESIUM SULF 50% (8.12 MEQ/2 ML-1 GM VIAL) IVPB ONE (17:09)
[2020-11-23] MEDS ORDERED: SILVER SULFADIAZINE 1% TOP CREAM 50 GM JAR TP ONE ×2 (17:13→19:21)
[2020-11-23] MEDS ORDERED: PANTOPRAZOLE SODIUM 40 MG VIAL IVPUSH ONE (17:13)
[2020-11-23] MEDS ORDERED: KCL 10 MEQ IVPB 10 MEQ/100 ML INFUS.BAG IVPB SCH ×2 (17:15→20:45)
[2020-11-23] MEDS ORDERED: MAGNESIUM SULFATE IN WATER 2 GM/50 ML IVPB IVPB ONE (17:36)
[2020-11-23] MEDS ORDERED: PANTOPRAZOLE SODIUM 40 MG VIAL ONE (17:36)
[2020-11-23] MEDS ORDERED: KCL 10 MEQ IVPB 10 MEQ/100 ML INFUS.BAG IVPB ONE ×2 (17:36→22:16)
[2020-11-23 17:59] LABS: CHLORIDE 82 mmol/L (98-107); SODIUM 131 mmol/L (136-145)
[2020-11-23 18:00] LABS: CALCIUM 11.8 mg/dL (8.5-10.1)
[2020-11-23 18:01] LABS: BLOOD UREA NITROGEN 11.2 mg/dL (7-18); CO2 35 mmol/L (21-32); GLUCOSE,RANDOM 144 mg/dL (74-106)
[2020-11-23 18:04] LABS: CREATININE 1.2 mg/dL (0.55-1.3)
[2020-11-23 18:15] LABS: ANION GAP 13 MMOL/L (8-16)
[2020-11-23 21:12] LABS: LACTIC ACID 3.8 mmol/L (0.4-2.0)
[2020-11-23] MEDS ORDERED: SODIUM CHLORIDE 1,000 ML IV STA (21:27)
[2020-11-23] MEDS ORDERED: PROCHLORPERAZINE INJECTION 10 MG/2 ML VIAL IVPB PRN (21:33)
[2020-11-23] MEDS: ENOXAPARIN NA (PORCINE) 40 MG/0.4 ML DISP.SYRIN SQ SCH (22:04)
[2020-11-23] MEDS ORDERED: SODIUM CHLORIDE 1,000 ML IV SCH ×2 (22:15)
[2020-11-23] MEDS ORDERED: ENOXAPARIN NA (PORCINE) 40 MG/0.4 ML DISP.SYRIN SQ ONE (22:16)
[2020-11-23] MEDS: FAMOTIDINE 20 MG TABLET PO SCH (23:50)
[2020-11-24] MEDS ORDERED: MAGNESIUM HYDROX 2400MG/30ML ORAL SUSPENSION 30 ML CUP PO PRN (00:30)
[2020-11-24] MEDS ORDERED: SODIUM CHLORIDE 1,000 ML with POTASSIUM CHLORIDE 40 MEQ IV SCH (01:00)
[2020-11-24 02:29] VITALS: BMI 31.9
[2020-11-24 02:41] LABS: BASO % 0.2 % (0-2.0); EOS % 0.3 % (0-4.5); HEMATOCRIT 38.7 % (32.4-45.2); HEMOGLOBIN 12.9 GM/dL (10.7-15.3); LYMPH % 12.9 % (8-40); MCH 30.5 pg (25.7-33.7); MCHC 33.5 g/dl (32.0-36.0); MEAN CELL VOLUME 91.3 fl (80-96); MEAN PLT VOLUME 8.5 fl (7.5-11.1); MONO % 8.9 % (3.8-10.2); NEUT % 77.7 % (42.8-82.8); PLATELET COUNT 378 K/MM3 (134-434); RBC 4.24 M/mm3 (3.60-5.2); RDW 14.6 % (11.6-15.6); WHITE BLOOD COUNT 17.9 K/mm3 (4.0-10.0)
[2020-11-24 03:03] LABS: BLOOD UREA NITROGEN 11.3 mg/dL (7-18); MAGNESIUM 2.4 mg/dL (1.8-2.4)
[2020-11-24] MEDS: SODIUM CHLORIDE 1,000 ML with POTASSIUM CHLORIDE 40 MEQ IV SCH (03:05)
[2020-11-24 03:06] LABS: PHOSPHOROUS 3.4 mg/dL (2.5-4.9)
[2020-11-24 03:07] LABS: BILIRUBIN,TOTAL 0.5 mg/dL (0.2-1); TOT PROT 7.4 g/dl (6.4-8.2)
[2020-11-24 03:27] LABS: CALCIUM 9.7 mg/dL (8.5-10.1)
[2020-11-24] MEDS ORDERED: FAMOTIDINE 10 MG TABLET PO ONE (05:23)
[2020-11-24] MEDS ORDERED: MELATONIN 5 MG TABLETS PO ONE (05:23)
[2020-11-24] MEDS ORDERED: morphine SULFATE 4 MG/ML VIAL IVPUSH ONE (05:24)
[2020-11-24] MEDS ORDERED: POTASSIUM CHLORIDE TABS 20 MEQ TABLET.ER (FP) PO ONE (07:40)
[2020-11-24] MEDS: MAG HYDROX/AL HYDROX/SIMETH 30 ML UNIT-DOSE CUP PO PRN (08:45)
[2020-11-24] MEDS ORDERED: guaiFENesin 200 MG/10 ML 10 ML UNIT-DOSE CUPS PO PRN (08:49)
[2020-11-24] MEDS: FAMOTIDINE 20 MG TABLET PO SCH (09:39)
[2020-11-24] MEDS: ENOXAPARIN NA (PORCINE) 40 MG/0.4 ML DISP.SYRIN SQ SCH (09:39)
[2020-11-24] MEDS: ACETAMINOPHEN 1000 MG/100 ML VIAL (NON FORMULARY) IVPB PRN ×2 (09:40→21:56)
[2020-11-24] MEDS: SILVER SULFADIAZINE 1% TOP CREAM 50 GM JAR TP SCH (09:57)
[2020-11-24] MEDS ORDERED: KETOROLAC TROMETHAMINE 30 MG/1 ML VIAL IM ONE ×2 (12:08→12:30)
[2020-11-24] MEDS ORDERED: MORPHINE SULFATE 2 MG/ML VIAL IVPUSH ONE (12:30)
[2020-11-24] MEDS ORDERED: morphine SULFATE 4 MG/ML VIAL IVPUSH PRN (12:39)
[2020-11-24] MEDS ORDERED: MORPHINE SULFATE 2 MG/ML VIAL IVPUSH PRN (12:39)
[2020-11-24] MEDS ORDERED: PIPERACILLIN/TAZOBACTAM 3.375 GM VIAL IVPB ONE (15:57)
[2020-11-24] MEDS: PIPERACILLIN/TAZOB 3.375 GM 3.375 GM in DEXTROSE 5%-WATER - 50 ML IVPB SCH (16:13)
[2020-11-24 16:43] LABS: PH,URINE 6.5 (5.0-8.0); URINE APPEARANCE CLOUDY; URINE BILIRUBIN NEGATIVE (NEGATIVE); URINE COLOR YELLOW; URINE GLUCOSE (UA) NEGATIVE (NEGATIVE); URINE KETONE TRACE (NEGATIVE); URINE LEUK ESTERASE NEGATIVE (NEGATIVE); URINE NITRITE NEGATIVE (NEGATIVE); URINE PROTEIN TRACE (NEGATIVE)
[2020-11-24 16:52] LABS: URINE BARBITURATES NEGATIVE ng/ml (CUTOFF=200); URINE BENZODIAZEPINES NEGATIVE ng/ml (CUTOFF=200)
[2020-11-24 16:53] LABS: METHADONE, UR NEGATIVE ng/ml (CUTOFF=300)
[2020-11-24] MEDS: KCL 10 MEQ IVPB 10 MEQ/100 ML INFUS.BAG IVPB SCH ×3 (16:53→20:26)
[2020-11-24 16:54] LABS: COCAINE, UR NEGATIVE ng/ml (CUTOFF=300); OPIATES, URI POSITIVE ng/ml (CUTOFF=300); PHENCYCLIDINE,URINE POSITIVE ng/ml (CUTOFF=25); URINE AMPHETAMINES NEGATIVE ng/ml (CUTOFF=500)
[2020-11-24] MEDS ORDERED: PT OWN MED DRAWER 7, Y5N ONE (21:05)
[2020-11-24] MEDS ORDERED: DOXEPIN HCL 25 MG CAPSULE PO SCH (22:00)
[2020-11-24] MEDS ORDERED: QUEtiapine FUMARATE 50 MG TABLET PO SCH (22:00)
[2020-11-25] MEDS: SODIUM CHLORIDE 1,000 ML with POTASSIUM CHLORIDE 40 MEQ IV SCH (00:31)
[2020-11-25] MEDS ORDERED: DEXTROSE 5%-WATER - 50 ML IVPB ONE ×2 (00:44→09:53)
[2020-11-25] MEDS ORDERED: PIPERACILLIN/TAZOBACTAM 3.375 GM VIAL IVPB ONE ×2 (00:44→09:52)
[2020-11-25] MEDS ORDERED: SODIUM CHLORIDE 1,000 ML IV SCH (00:45)
[2020-11-25] MEDS: PIPERACILLIN/TAZOB 3.375 GM 3.375 GM in DEXTROSE 5%-WATER - 50 ML IVPB SCH ×2 (01:20→09:57)
[2020-11-25] MEDS ORDERED: SODIUM CHLORIDE 250 ML IV STA (06:08)
[2020-11-25] MEDS ORDERED: QUEtiapine FUMARATE 50 MG TABLET PO SCH (07:00)
[2020-11-25 08:38] LABS: CALCIUM 8.5 mg/dL (8.5-10.1)
[2020-11-25 08:40] LABS: CREATININE 0.8 mg/dL (0.55-1.3)
[2020-11-25 08:42] LABS: BILIRUBIN,TOTAL 0.9 mg/dL (0.2-1); TOT PROT 5.8 g/dl (6.4-8.2)
[2020-11-25 08:43] LABS: ALBUMIN 2.9 g/dl (3.4-5.0)
[2020-11-25 09:03] LABS: BASO % 0.6 % (0-2.0); EOS % 1.9 % (0-4.5); HEMATOCRIT 35.2 % (32.4-45.2); HEMOGLOBIN 11.7 GM/dL (10.7-15.3); LYMPH % 31.8 % (8-40); MCHC 33.2 g/dl (32.0-36.0); MEAN CELL VOLUME 93.4 fl (80-96); MEAN PLT VOLUME 7.8 fl (7.5-11.1); MONO % 12.9 % (3.8-10.2); NEUT % 52.8 % (42.8-82.8); PLATELET COUNT 283 K/MM3 (134-434); RBC 3.77 M/mm3 (3.60-5.2); RDW 14.6 % (11.6-15.6); WHITE BLOOD COUNT 6.9 K/mm3 (4.0-10.0)
[2020-11-25] MEDS ORDERED: PT OWN MED DRAWER 7, Y5N ONE (09:53)
[2020-11-25] MEDS: ENOXAPARIN NA (PORCINE) 40 MG/0.4 ML DISP.SYRIN SQ SCH (09:56)
[2020-11-25] MEDS: SILVER SULFADIAZINE 1% TOP CREAM 50 GM JAR TP SCH (09:58)
[2020-11-25] MEDS ORDERED: FAMOTIDINE 20 MG TABLET PO SCH (10:00)
[2020-11-25] MEDS ORDERED: PARoxetine HCL 30 MG TABLET PO SCH (10:00)
[2020-11-25] MEDS: MAG HYDROX/AL HYDROX/SIMETH 30 ML UNIT-DOSE CUP PO PRN (13:39)
[2020-11-25 14:38] VITALS: BP 112/65; PULSE 81; TEMP 99.2
[2020-11-25] MEDS ORDERED: PIPERACILLIN/TAZOB 3.375 GM 3.375 GM in DEXTROSE 5%-WATER - 50 ML IVPB SCH (18:00)
== END 2020-11-25 17:16 | disposition home or self-care (01) | DRG 776 ==
LOC: JER 11:51 → JERBED 16:22 → J6S 23:06
PROVIDERS: ADMIT Hospitalist; ATTEND Internal Medicine
DX: F12.188 Cannabis abuse with other cannabis-induced disorder (principal); R94.31 Abnormal electrocardiogram [ECG] [EKG]; E83.52 Hypercalcemia; E83.42 Hypomagnesemia; E87.2 Acidosis; R65.10 Systemic inflammatory response syndrome (SIRS) of non-infectious origin without acute organ dysfunction; E87.0 Hyperosmolality and hypernatremia; N83.202 Unspecified ovarian cyst, left side; D47.3 Essential (hemorrhagic) thrombocythemia; R11.2 Nausea with vomiting, unspecified; N20.0 Calculus of kidney; K21.9 Gastro-esophageal reflux disease without esophagitis; R00.0 Tachycardia, unspecified; E87.6 Hypokalemia; D72.829 Elevated white blood cell count, unspecified; F41.8 Other specified anxiety disorders; E86.0 Dehydration
CPT/HCPCS: 36415; 71045-TC-FY; 74176-TC; 76705-TC; 76937; 80048; 80053; 80307; 81003; 83605; 83690; 83735; 84100; 84703; 85025; 87040; 93005; 93010; 99285-25; C9803; J0131; Q0162; U0003; U0005

== ENCOUNTER → 2020-12-06 | Emergency (ER) | payer OTHER ==
[~2020-12-06] MED LIST: ACETAMINOPHEN 1000 MG/100 ML VIAL (NON FORMULARY) IVPB ONE; ACETAMINOPHEN INJECTION 100 ML IVPB ONE; FAMOTIDINE 20 MG/50 ML IVPB 20 MG/50 ML MG IVPB ONE; HALOPERIDOL DECANOATE 100 MG/ML IM ONE; HALOPERIDOL LACTATE 5 MG/ML ONE; LORazepam 2 MG/ML SDV VIAL IVPUSH ONE; ONDANSETRON 4 MG/2 ML VIAL IVPUSH ONE; ONDANSETRON 4 MG/2 ML VIAL ONE; SODIUM CHLORIDE 0.9% 500 ML INFUS.BAG IV ONE; morphine CARPU-JECT 4 MG/1 ML DISP.SYRIN IVPUSH ONE
[2020-12-06 08:00] VITALS: BP 119/67; PULSE 120; TEMP 97.8; BMI 31.8
[2020-12-06 08:39] LABS: BASO % 0.7 % (0-2.0); EOS % 0.1 % (0-4.5); HEMATOCRIT 38.7 % (32.4-45.2); MCH 30.2 pg (25.7-33.7); MCHC 33.7 g/dl (32.0-36.0); MEAN CELL VOLUME 89.5 fl (80-96); MEAN PLT VOLUME 7.5 fl (7.5-11.1); MONO % 6.3 % (3.8-10.2); NEUT % 70.9 % (42.8-82.8); PLATELET COUNT 487 10^3/uL (134-434); RBC 4.32 M/mm3 (3.60-5.2); RDW 14.3 % (11.6-15.6); WHITE BLOOD COUNT 15.2 K/mm3 (4.0-10.0)
[2020-12-06 08:53] LABS: BLOOD UREA NITROGEN 5.7 mg/dL (7-18)
[2020-12-06 08:56] LABS: CREATININE 0.8 mg/dL (0.55-1.3)
[2020-12-06 08:57] LABS: BILIRUBIN,TOTAL 0.4 mg/dL (0.2-1); TOT PROT 7.8 g/dl (6.4-8.2)
[2020-12-06 09:16] LABS: CALCIUM 10.1 mg/dL (8.5-10.1); LACTIC ACID 2.4 mmol/L (0.4-2.0)
== END | disposition left against medical advice (07) ==
LOC: JER 07:51
PROC: 3E0333Z Introduction of Anti-inflammatory into Peripheral Vein, Percutaneous Approach (ICD-10-PCS; principal; 2020-12-06)
PROC: 3E033GC Introduction of Other Therapeutic Substance into Peripheral Vein, Percutaneous Approach (ICD-10-PCS; 2020-12-06)
PROC: 3E023NZ Introduction of Analgesics, Hypnotics, Sedatives into Muscle, Percutaneous Approach (ICD-10-PCS; 2020-12-06)
PROC: 3E033GC Introduction of Other Therapeutic Substance into Peripheral Vein, Percutaneous Approach (ICD-10-PCS; 2020-12-06)
DX: R10.13 Epigastric pain (principal); Z91.19 Patient's noncompliance with other medical treatment and regimen; R45.851 Suicidal ideations
CPT/HCPCS: 36415; 80053; 83605; 83690; 84703; 85025; 93005; 93010; 99284-25; J0131

== ENCOUNTER 2021-07-13 05:14 | Emergency (ER) | payer OTHER ==
[2021-07-13] MEDS ORDERED: LORazepam 2 MG TABLET PO ONE (05:28)
[2021-07-13] MEDS ORDERED: DEXAMETHASONE SOD PHOSPHATE 10 MG/1 ML VIAL IM ONE (05:29)
[2021-07-13] MEDS ORDERED: DEXAMETHASONE SOD PHOSPHATE 10 MG/1 ML VIAL ONE (05:30)
[2021-07-13] MEDS ORDERED: LORazepam 0.5 MG TABLET ONE (05:30)
[2021-07-13 05:51] VITALS: BP 147/109; PULSE 119; TEMP 97.7; BMI 26.5
== END 2021-07-13 06:21 | disposition home or self-care (01) ==
LOC: JER 05:14
PROC: 3E0233Z Introduction of Anti-inflammatory into Muscle, Percutaneous Approach (ICD-10-PCS; principal; 2021-07-13)
DX: F41.9 Anxiety disorder, unspecified (principal); Z86.16 Personal history of COVID-19
CPT/HCPCS: 93005; 93010; 99284-25; J1100

== ENCOUNTER 2022-01-05 06:12 | Emergency (ER) | payer OTHER ==
[2022-01-05 06:27] VITALS: TEMP 98.9; BMI 25.7
[2022-01-05] MEDS ORDERED: SODIUM CHLORIDE 1,000 ML IV STA (07:34)
[2022-01-05] MEDS ORDERED: morphine CARPU-JECT 4 MG/1 ML DISP.SYRIN IVPUSH ONE (07:34)
[2022-01-05] MEDS ORDERED: HALOPERIDOL LACTATE 5 MG/ML IM ONE (07:35)
[2022-01-05] MEDS ORDERED: HALOPERIDOL LACTATE 5 MG/ML ONE (07:38)
[2022-01-05] MEDS ORDERED: morphine SULFATE 4 MG/ML VIAL ONE (07:44)
[2022-01-05 08:40] LABS: BASO % 0.8 % (0-2.0); EOS % 0.6 % (0-4.5); HEMOGLOBIN 13.6 GM/dL (10.7-15.3); LYMPH % 20.6 % (8-40); MCH 28.4 pg (25.7-33.7); MCHC 34.1 g/dl (32.0-36.0); MEAN CELL VOLUME 83.1 fl (80-96); MEAN PLT VOLUME 7.4 fl (7.5-11.1); MONO % 5.4 % (3.8-10.2); NEUT % 72.6 % (42.8-82.8); PLATELET COUNT 558 10^3/uL (134-434); RBC 4.81 M/mm3 (3.60-5.2); RDW 15.5 % (11.6-15.6); WHITE BLOOD COUNT 10.4 K/mm3 (4.0-10.0)
[2022-01-05 09:07] LABS: ALBUMIN 4.2 g/dl (3.4-5.0); CALCIUM 10.6 mg/dL (8.5-10.1)
[2022-01-05 09:08] LABS: BLOOD UREA NITROGEN 11.4 mg/dL (7-18); MAGNESIUM 2.2 mg/dL (1.8-2.4)
[2022-01-05 09:10] LABS: CREATININE 0.8 mg/dL (0.55-1.3)
[2022-01-05 09:12] LABS: BILIRUBIN,TOTAL 0.4 mg/dL (0.2-1); TOT PROT 9.8 g/dl (6.4-8.2)
[2022-01-05 16:06] VITALS: BP 150/104; PULSE 99
== END 2022-01-05 16:05 | disposition home or self-care (01) ==
LOC: JER 06:12
PROC: 3E023GC Introduction of Other Therapeutic Substance into Muscle, Percutaneous Approach (ICD-10-PCS; principal; 2022-01-05)
PROC: 3E033NZ Introduction of Analgesics, Hypnotics, Sedatives into Peripheral Vein, Percutaneous Approach (ICD-10-PCS; 2022-01-05)
PROC: 3E0337Z Introduction of Electrolytic and Water Balance Substance into Peripheral Vein, Percutaneous Approach (ICD-10-PCS; 2022-01-05)
DX: N83.202 Unspecified ovarian cyst, left side (principal); R41.9 Unspecified symptoms and signs involving cognitive functions and awareness; R10.9 Unspecified abdominal pain
CPT/HCPCS: 36415; 74177-TC; 76830-TC; 80053; 83605; 83690; 83735; 84703; 85025; 93005; 93010; 99285-25; Q9967

== ENCOUNTER 2022-02-18 06:13 | Emergency (ER) | payer OTHER ==
[2022-02-18] MEDS ORDERED: HALOPERIDOL LACTATE 5 MG/ML IM ONE (06:26)
[2022-02-18] MEDS ORDERED: LORazepam 2 MG/ML SDV VIAL IM ONE (06:26)
[2022-02-18] MEDS ORDERED: HALOPERIDOL LACTATE 5 MG/ML ONE (06:29)
[2022-02-18 07:20] VITALS: BP 144/85; PULSE 79; RESP 20; TEMP 98.4; BMI 30.1
[2022-02-18] MEDS ORDERED: MAG HYDROX/AL HYDROX/SIMETH -MYLANTA- ORAL SUSPENSION PO ONE (07:27)
[2022-02-18] MEDS ORDERED: FAMOTIDINE 10 MG TABLET PO ONE (07:27)
[2022-02-18] MEDS ORDERED: ACETAMINOPHEN 500 MG TABLET (FP) PO ONE (07:28)
[2022-02-18] MEDS ORDERED: FAMOTIDINE 20 MG TABLET ONE (07:42)
[2022-02-18] MEDS ORDERED: ACETAMINOPHEN 325 MG TABLET (FP) ONE (07:42)
[2022-02-18] MEDS ORDERED: MAG HYDROX/AL HYDROX/SIMETH 30 ML UNIT-DOSE CUP ONE (07:43)
== END 2022-02-18 08:59 | disposition home or self-care (01) ==
LOC: JER 06:13
PROC: 3E023GC Introduction of Other Therapeutic Substance into Muscle, Percutaneous Approach (ICD-10-PCS; principal; 2022-02-18)
PROC: 3E023GC Introduction of Other Therapeutic Substance into Muscle, Percutaneous Approach (ICD-10-PCS; 2022-02-18)
PROC: 3E033NZ Introduction of Analgesics, Hypnotics, Sedatives into Peripheral Vein, Percutaneous Approach (ICD-10-PCS; 2022-02-18)
DX: F41.9 Anxiety disorder, unspecified (principal); R10.13 Epigastric pain
CPT/HCPCS: 99284-25

== ENCOUNTER 2022-08-06 16:27 | Emergency (ER) | payer OTHER ==
[2022-08-06] MEDS ORDERED: KETAMINE HCL 200 MG/20 ML VIAL IVPUSH ONE (16:47)
[2022-08-06] MEDS ORDERED: KETAMINE HCL 500 MG/10 ML VIAL ONE (16:48)
[2022-08-06] MEDS ORDERED: LORazepam 2 MG/ML SDV VIAL IM STA (17:05)
[2022-08-06] MEDS ORDERED: KETAMINE HCL 200 MG/20 ML VIAL IM STA (17:06)
[2022-08-06 17:08] VITALS: BP 172/110; TEMP 98; BMI 39.8
[2022-08-06 19:57] VITALS: PULSE 120; RESP 22
== END 2022-08-06 20:33 | disposition home or self-care (01) ==
LOC: JER 16:27
PROC: 3E023GC Introduction of Other Therapeutic Substance into Muscle, Percutaneous Approach (ICD-10-PCS; principal; 2022-08-06)
DX: F41.0 Panic disorder [episodic paroxysmal anxiety] (principal)
CPT/HCPCS: 99284-25

== ENCOUNTER 2023-07-10 05:31 | Inpatient (IN) | payer OTHER ==
[2023-07-10 05:39] VITALS: BMI 32.5
[2023-07-10] MEDS ORDERED: SODIUM CHLORIDE 0.9% 500 ML INFUS.BAG IV ONE ×2 (06:05→16:40)
[2023-07-10] MEDS ORDERED: ACETAMINOPHEN 1000 MG/100 ML BAG IVPB ONE (06:05)
[2023-07-10] MEDS ORDERED: LIDOCAINE 5% TOPICAL PATCH TP ONE (06:07)
[2023-07-10] MEDS ORDERED: LIDOCAINE 4% PATCH TP ONE (06:24)
[2023-07-10 07:02] LABS: EPI CELLS >36 /uL (0-25.1); HYALINE CASTS 7 /uL (0-3.1); PH,URINE 5.5 (5.0-8.0); URINE APPEARANCE CLOUDY; URINE BACTERIA 1272 /uL (0-1359); URINE BILIRUBIN NEGATIVE (NEGATIVE); URINE COLOR YELLOW; URINE GLUCOSE (UA) NEGATIVE (NEGATIVE); URINE KETONE NEGATIVE (NEGATIVE); URINE LEUK ESTERASE NEGATIVE (NEGATIVE); URINE NITRITE NEGATIVE (NEGATIVE); URINE PROTEIN 1+ (NEGATIVE); URINE RBC 39 /uL (0-23.9); URINE UROBILINOGEN 0.2 mg/dL (0.2-1.0); URINE WBC 54 /uL (0-25.8)
[2023-07-10] MEDS ORDERED: HALOPERIDOL LACTATE 5 MG/ML IM ONE ×2 (08:07→20:36)
[2023-07-10] MEDS ORDERED: HALOPERIDOL LACTATE 5 MG/ML ONE (08:11)
[2023-07-10] MEDS ORDERED: morphine CARPU-JECT 4 MG/1 ML DISP.SYRIN IVPUSH ONE ×2 (08:19→11:16)
[2023-07-10] MEDS ORDERED: morphine CARPU-JECT 2 MG/1 ML DISP.SYRIN IM ONE (08:30)
[2023-07-10 09:32] LABS: HEMATOCRIT 42.7 % (32.4-45.2); HEMOGLOBIN 13.9 GM/dL (10.7-15.3); MCH 28.2 pg (25.7-33.7); MCHC 32.4 g/dl (32.0-36.0); MEAN PLT VOLUME 8.2 fl (7.5-11.1); PLATELET COUNT 432 10^3/uL (134-434); RBC 4.91 M/mm3 (3.60-5.2); RDW 14.4 % (11.6-15.6); WHITE BLOOD COUNT 23.3 K/mm3 (4.0-10.0)
[2023-07-10 09:52] LABS: POTASSIUM 3.8 mmol/L (3.5-5.1)
[2023-07-10 09:55] LABS: ALBUMIN 3.6 g/dl (3.4-5.0); BLOOD UREA NITROGEN 40.7 mg/dL (7-18); CALCIUM 10.1 mg/dL (8.5-10.1); MAGNESIUM 2.7 mg/dL (1.8-2.4)
[2023-07-10 09:57] LABS: CREATININE 1.3 mg/dL (0.55-1.3)
[2023-07-10 09:58] LABS: PHOSPHOROUS 3.4 mg/dL (2.5-4.9)
[2023-07-10 09:59] LABS: BILIRUBIN,TOTAL 0.5 mg/dL (0.2-1); TOT PROT 8.1 g/dl (6.4-8.2)
[2023-07-10] MEDS ORDERED: CEFTRIAXONE 1 GM in DEXTROSE 5%-WATER - 100 ML IVPB ONE (10:37)
[2023-07-10 10:50] LABS: ANISOCYTOSIS 0; MACROCYTOSIS 0
[2023-07-10] MEDS ORDERED: CEFTRIAXONE 1 GM/50 ML BAG ONE (11:50)
[2023-07-10] MEDS ORDERED: morphine SULFATE 4 MG/ML VIAL ONE (11:55)
[2023-07-10] MEDS ORDERED: LORazepam 1 MG TABLET PO ONE (15:53)
[2023-07-10] MEDS ORDERED: morphine CARPU-JECT 2 MG/1 ML DISP.SYRIN IVPUSH ONE (16:37)
[2023-07-10] MEDS ORDERED: amLODIPine BESYLATE 5 MG TABLET (FP) PO ONE (17:55)
[2023-07-10] MEDS ORDERED: amLODIPine BESYLATE 5 MG TABLET (FP) ONE (17:56)
[2023-07-10 17:58] LABS: BASO % 0.3 % (0-2.0); EOS % 0.1 % (0-4.5); HEMATOCRIT 38.2 % (32.4-45.2); HEMOGLOBIN 12.7 GM/dL (10.7-15.3); LYMPH % 16.9 % (8-40); MCH 29.2 pg (25.7-33.7); MCHC 33.4 g/dl (32.0-36.0); MEAN CELL VOLUME 87.5 fl (80-96); MEAN PLT VOLUME 8.1 fl (7.5-11.1); MONO % 9.2 % (3.8-10.2); NEUT % 73.5 % (42.8-82.8); PLATELET COUNT 428 10^3/uL (134-434); RBC 4.36 M/mm3 (3.60-5.2); RDW 14.6 % (11.6-15.6)
[2023-07-10 18:25] LABS: ANISOCYTOSIS 1+; MACROCYTOSIS 0
[2023-07-10] MEDS ORDERED: hydrALAZINE HCL 20 MG/ML VIAL IVPUSH ONE (19:14)
[2023-07-10] MEDS ORDERED: hydrALAZINE HCL 20 MG/ML VIAL ONE (19:22)
[2023-07-10] MEDS ORDERED: ACETAMINOPHEN 1000 MG/100 ML BAG IVPB PRN (20:48)
[2023-07-10] MEDS: LIDOCAINE PATCH REMOVAL MC SCH (21:28)
[2023-07-10] MEDS: QUEtiapine FUMARATE 50 MG TABLET PO SCH (21:28)
[2023-07-10] MEDS: LURASIDONE HCL 40 MG TABLET PO SCH (21:58)
[2023-07-11 07:38] VITALS: RESP 18
[2023-07-11] MEDS ORDERED: CEFTRIAXONE 1 GM in DEXTROSE 5%-WATER - 50 ML IVPB SCH (10:00)
[2023-07-11] MEDS ORDERED: PARoxetine HCL 10 MG TABLET PO SCH (10:00)
[2023-07-11] MEDS ORDERED: ENOXAPARIN NA (PORCINE) 40 MG/0.4 ML DISP.SYRIN SQ SCH (10:00)
[2023-07-11] MEDS ORDERED: QUEtiapine FUMARATE 50 MG TABLET PO SCH (10:00)
[2023-07-11] MEDS ORDERED: PARoxetine HCL 30 MG TABLET PO SCH (10:00)
[2023-07-11] MEDS ORDERED: amLODIPine BESYLATE 5 MG TABLET (FP) PO SCH (10:15)
[2023-07-11 10:19] LABS: BASO % 0.2 % (0-2.0); EOS % 0.1 % (0-4.5); HEMATOCRIT 38.2 % (32.4-45.2); HEMOGLOBIN 12.2 GM/dL (10.7-15.3); LYMPH % 14.1 % (8-40); MCH 28.2 pg (25.7-33.7); MEAN CELL VOLUME 88.3 fl (80-96); MEAN PLT VOLUME 8.2 fl (7.5-11.1); MONO % 10.1 % (3.8-10.2); NEUT % 75.5 % (42.8-82.8); PLATELET COUNT 414 10^3/uL (134-434); RBC 4.32 M/mm3 (3.60-5.2); RDW 14.4 % (11.6-15.6); WHITE BLOOD COUNT 17.6 K/mm3 (4.0-10.0)
[2023-07-11 10:33] LABS: POTASSIUM 3.6 mmol/L (3.5-5.1)
[2023-07-11 10:40] LABS: ALBUMIN 3.5 g/dl (3.4-5.0); BLOOD UREA NITROGEN 26.7 mg/dL (7-18); CALCIUM 9.4 mg/dL (8.5-10.1)
[2023-07-11 10:43] LABS: CREATININE 1.1 mg/dL (0.55-1.3)
[2023-07-11 10:44] LABS: BILIRUBIN,TOTAL 0.4 mg/dL (0.2-1)
[2023-07-11 14:51] LABS: EPI CELLS >36 /uL (0-25.1); HYALINE CASTS 2 /uL (0-3.1); URINE APPEARANCE CLOUDY; URINE BACTERIA 363 /uL (0-1359); URINE BILIRUBIN NEGATIVE (NEGATIVE); URINE COLOR YELLOW; URINE GLUCOSE (UA) TRACE (NEGATIVE); URINE KETONE TRACE (NEGATIVE); URINE LEUK ESTERASE NEGATIVE (NEGATIVE); URINE NITRITE NEGATIVE (NEGATIVE); URINE PROTEIN 1+ (NEGATIVE); URINE RBC 12 /uL (0-23.9); URINE UROBILINOGEN 0.2 mg/dL (0.2-1.0); URINE WBC 45 /uL (0-25.8)
[2023-07-11 15:15] LABS: URINE CRYSTALS NONE SEEN /hpf
[2023-07-11] MEDS: LORazepam 0.5 MG TABLET PO PRN ×2 (15:29→22:04)
[2023-07-11] MEDS ORDERED: HYDROCHLOROTHIAZIDE 25 MG TABLET (FP) PO SCH (15:45)
[2023-07-11] MEDS: cloNIDine HCL 0.1 MG TABLET PO PRN (17:07)
[2023-07-11 18:22] LABS: N-TERMINAL BNP 426.7 pg/ml (5-125)
[2023-07-11] MEDS: LURASIDONE HCL 40 MG TABLET PO SCH (18:22)
[2023-07-11] MEDS ORDERED: LISINOPRIL 5 MG TABLET PO SCH (19:15)
[2023-07-11] MEDS ORDERED: ATORVASTATIN CA 80 MG TABLET (FP) PO SCH (22:00)
[2023-07-11] MEDS: LIDOCAINE PATCH REMOVAL MC SCH (22:05)
[2023-07-11] MEDS: QUEtiapine FUMARATE 50 MG TABLET PO SCH (22:05)
[2023-07-11] MEDS ORDERED: SODIUM CHLORIDE 1,000 ML with POTASSIUM CHLORIDE 10 MEQ IV SCH (23:45)
[2023-07-12] MEDS: cloNIDine HCL 0.1 MG TABLET PO PRN (06:16)
[2023-07-12] MEDS: LORazepam 0.5 MG TABLET PO PRN (09:20)
[2023-07-12 09:45] VITALS: BP 104/67; PULSE 101; TEMP 97.6
== END 2023-07-12 09:50 | disposition left against medical advice (07) | DRG 347 ==
LOC: JER 05:31 → JERBED 16:50 → J7W 20:21
PROVIDERS: ADMIT Internal Medicine; ATTEND Internal Medicine
DX: M54.9 Dorsalgia, unspecified (principal); F31.9 Bipolar disorder, unspecified; F41.9 Anxiety disorder, unspecified; E87.1 Hypo-osmolality and hyponatremia; I10 Essential (primary) hypertension; E78.5 Hyperlipidemia, unspecified; D72.829 Elevated white blood cell count, unspecified; R33.8 Other retention of urine; K21.9 Gastro-esophageal reflux disease without esophagitis; N39.0 Urinary tract infection, site not specified; F12.20 Cannabis dependence, uncomplicated
CPT/HCPCS: 0241U-QW; 36415; 71275-TC; 74174-TC; 80053; 80061; 81003; 83036; 83735; 83880; 84100; 84443; 84484; 84703; 85025; 85651; 86140; 87086; 93005; 93010; 93306-TC; 99285-25; Q9967

== ENCOUNTER 2023-10-30 08:18 | Inpatient (IN) | payer OTHER ==
[2023-10-30] MEDS ORDERED: HALOPERIDOL LACTATE 5 MG/ML ONE (08:34)
[2023-10-30] MEDS: HALOPERIDOL LACTATE 5 MG/ML IM ONE (08:48)
[2023-10-30] MEDS: SODIUM CHLORIDE 500 ML IV STA (09:56)
[2023-10-30 10:02] LABS: HEMATOCRIT 37.2 % (32.4-45.2); HEMOGLOBIN 12.5 GM/dL (10.7-15.3); MCH 26.6 pg (25.7-33.7); MCHC 33.5 g/dl (32.0-36.0); MEAN CELL VOLUME 79.4 fl (80-96); MEAN PLT VOLUME 8.5 fl (7.5-11.1); PLATELET COUNT 445 10^3/uL (134-434); RBC 4.69 M/mm3 (3.60-5.2); RDW 16.8 % (11.6-15.6); WHITE BLOOD COUNT 20.6 K/mm3 (4.0-10.0)
[2023-10-30 10:21] LABS: CALCIUM 12.3 mg/dL (8.5-10.1)
[2023-10-30 10:22] LABS: ALBUMIN 4.3 g/dl (3.4-5.0); BLOOD UREA NITROGEN 75.9 mg/dL (7-18); MAGNESIUM 2.6 mg/dL (1.8-2.4)
[2023-10-30 10:25] LABS: CREATININE 4.6 mg/dL (0.55-1.3)
[2023-10-30 10:27] LABS: BILIRUBIN,TOTAL 0.6 mg/dL (0.2-1)
[2023-10-30] MEDS: SODIUM CHLORIDE 1,000 ML IV STA (11:25)
[2023-10-30] MEDS: POTASSIUM CHLORIDE ORAL LIQUID 20 MEQ/15 ML PO ONE (11:31)
[2023-10-30] MEDS ORDERED: KCL 10 MEQ IVPB 10 MEQ/100 ML INFUS.BAG IVPB ONE ×2 (11:31→13:25)
[2023-10-30] MEDS ORDERED: POTASSIUM CHLORIDE ORAL LIQUID 20 MEQ/15 ML ONE (11:31)
[2023-10-30] MEDS: KCL 10 MEQ IVPB 10 MEQ/100 ML INFUS.BAG IVPB SCH (11:32)
[2023-10-30] MEDS ORDERED: hydrALAZINE HCL 20 MG/ML VIAL ONE (13:49)
[2023-10-30] MEDS: hydrALAZINE HCL 20 MG/ML VIAL IM ONE (14:16)
[2023-10-30] MEDS: PIPERACILLIN/TAZOB 3.375 GM 3.375 GM in DEXTROSE 5%-WATER - 50 ML IVPB ONE (14:18)
[2023-10-30] MEDS ORDERED: PIPERACILLIN/TAZOB 3.375 GM 3.375 GM/50 ML BAG IVPB ONE (14:18)
[2023-10-30] MEDS: SODIUM CHLORIDE 0.9% 500 ML INFUS.BAG IV ONE (15:44)
[2023-10-30] MEDS ORDERED: SENNOSIDES 8.6MG TABLET (FP) PO PRN (17:36)
[2023-10-30] MEDS ORDERED: PIPERACILLIN/TAZOB 3.375 GM 3.375 GM in DEXTROSE 5%-WATER - 50 ML IVPB SCH (18:00)
[2023-10-30 20:33] VITALS: BMI 32.0
[2023-10-30] MEDS ORDERED: QUEtiapine FUMARATE 25 MG TABLET ONE (20:56)
[2023-10-30] MEDS: LURASIDONE HCL 40 MG TABLET PO SCH (21:37)
[2023-10-30] MEDS: DEXTROSE 5%-0.45% SALINE 1,000 ML IV SCH (21:37)
[2023-10-30] MEDS: QUEtiapine FUMARATE 50 MG TABLET PO SCH (21:37)
[2023-10-30] MEDS: PIPERACILLIN/TAZOB 3.375 GM 3.375 GM in DEXTROSE 5%-WATER - 50 ML IVPB SCH (21:39)
[2023-10-31] MEDS: QUEtiapine FUMARATE 50 MG TABLET PO SCH (06:01)
[2023-10-31] MEDS ORDERED: PARoxetine HCL 10 MG TABLET ONE (08:29)
[2023-10-31] MEDS: PARoxetine HCL 30 MG TABLET PO SCH (10:59)
[2023-10-31] MEDS: ENOXAPARIN NA (PORCINE) 30 MG/0.3 ML DISP.SYRIN SQ SCH (11:02)
[2023-10-31 13:21] LABS: EOS % 0.3 % (0-4.5); HEMOGLOBIN 8.7 GM/dL (10.7-15.3); LYMPH % 22.1 % (8-40); MCH 25.9 pg (25.7-33.7); MCHC 32.1 g/dl (32.0-36.0); MEAN CELL VOLUME 80.6 fl (80-96); MEAN PLT VOLUME 8.5 fl (7.5-11.1); MONO % 8.8 % (3.8-10.2); NEUT % 68.8 % (42.8-82.8); PLATELET COUNT 307 10^3/uL (134-434); RBC 3.35 M/mm3 (3.60-5.2); RDW 16.9 % (11.6-15.6); WHITE BLOOD COUNT 14.4 K/mm3 (4.0-10.0)
[2023-10-31 13:58] LABS: CHLORIDE 93 mmol/L (98-107); SODIUM 130 mmol/L (136-145)
[2023-10-31] MEDS: ONDANSETRON 4 MG/2 ML VIAL IVPUSH PRN (14:00)
[2023-10-31 14:01] LABS: CO2 30 mmol/L (21-32); GLUCOSE,RANDOM 143 mg/dL (74-106)
[2023-10-31 14:04] LABS: CREATININE 1.8 mg/dL (0.55-1.3); SGOT/AST 21 U/L (15-37)
[2023-10-31 14:06] LABS: BILIRUBIN,TOTAL 0.3 mg/dL (0.2-1)
[2023-10-31 14:17] LABS: ALBUMIN 2.8 g/dl (3.4-5.0); ALK PHOS 73 U/L (45-117); ANION GAP 7 mmol/L (4-13); BLOOD UREA NITROGEN 37.1 mg/dL (7-18); CALCIUM 8.9 mg/dL (8.5-10.1); POTASSIUM 2.7 mmol/L (3.5-5.1); SGPT/ALT 25 U/L (13-61); TOT PROT 6.6 g/dl (6.4-8.2)
[2023-10-31] MEDS: cloNIDine HCL 0.1 MG TABLET PO PRN (14:45)
[2023-10-31] MEDS: KCL 10 MEQ IVPB 10 MEQ/100 ML INFUS.BAG IVPB SCH (14:46)
[2023-10-31] MEDS: POTASSIUM CHLORIDE ORAL LIQUID 20 MEQ/15 ML PO SCH (14:46)
[2023-10-31] MEDS: SODIUM CHLORIDE 1,000 ML IV SCH (15:12)
[2023-10-31] MEDS ORDERED: QUEtiapine FUMARATE 200 MG TABLET PO SCH (16:30)
[2023-10-31] MEDS: QUEtiapine FUMARATE 100 MG TABLET (FP) PO SCH (16:49)
[2023-11-01] MEDS: MELATONIN 5 MG TABLETS PO ONE (01:41)
[2023-11-01] MEDS: MAG HYDROX/AL HYDROX/SIMETH 30 ML UNIT-DOSE CUP PO ONE ×2 (03:06→10:25)
[2023-11-01] MEDS: POLYETHYLENE GLYCOL (HEALTHYLAX) 3350 17 GM PACKET PO SCH (10:26)
[2023-11-01] MEDS: PANTOPRAZOLE 20 MG TABLET PO SCH (10:26)
[2023-11-01] MEDS: PARoxetine HCL 10 MG TABLET PO SCH (10:27)
[2023-11-01] MEDS: MAG HYDROX/AL HYDROX/SIMETH 30 ML UNIT-DOSE CUP PO PRN (19:00)
[2023-11-02 07:15] LABS: BASO % 0.1 % (0-2.0); HEMATOCRIT 26.5 % (32.4-45.2); HEMOGLOBIN 8.8 GM/dL (10.7-15.3); LYMPH % 30.5 % (8-40); MCH 27.3 pg (25.7-33.7); MCHC 33.3 g/dl (32.0-36.0); MEAN CELL VOLUME 81.9 fl (80-96); MEAN PLT VOLUME 8.3 fl (7.5-11.1); MONO % 9.7 % (3.8-10.2); NEUT % 57.7 % (42.8-82.8); PLATELET COUNT 326 10^3/uL (134-434); RBC 3.24 M/mm3 (3.60-5.2); RDW 16.4 % (11.6-15.6); WHITE BLOOD COUNT 10.8 K/mm3 (4.0-10.0)
[2023-11-02 07:27] LABS: CHLORIDE 102 mmol/L (98-107); POTASSIUM 4.1 mmol/L (3.5-5.1); SODIUM 133 mmol/L (136-145)
[2023-11-02 07:35] LABS: ALBUMIN 2.5 g/dl (3.4-5.0); ANION GAP 3 mmol/L (4-13); BLOOD UREA NITROGEN 15.9 mg/dL (7-18); CALCIUM 8.8 mg/dL (8.5-10.1); CO2 28 mmol/L (21-32); GLUCOSE,RANDOM 99 mg/dL (74-106); MAGNESIUM 2.5 mg/dL (1.8-2.4)
[2023-11-02 07:39] LABS: BILIRUBIN,TOTAL < 0.1 mg/dL (0.2-1); CREATININE 1.1 mg/dL (0.55-1.3); SGPT/ALT 36 U/L (13-61); TOT PROT 5.9 g/dl (6.4-8.2)
[2023-11-02 07:41] LABS: SGOT/AST 25 U/L (15-37)
[2023-11-02 07:42] LABS: ALK PHOS 73 U/L (45-117)
[2023-11-02] MEDS: ACETAMINOPHEN 1000 MG/100 ML BAG IVPB ONE (21:24)
[2023-11-03 08:35] LABS: BASO % 0.2 % (0-2.0); EOS % 1.8 % (0-4.5); HEMATOCRIT 24.3 % (32.4-45.2); LYMPH % 34.9 % (8-40); MCH 26.8 pg (25.7-33.7); MCHC 32.9 g/dl (32.0-36.0); MEAN CELL VOLUME 81.6 fl (80-96); MEAN PLT VOLUME 8.2 fl (7.5-11.1); NEUT % 53.1 % (42.8-82.8); PLATELET COUNT 353 10^3/uL (134-434); RBC 2.98 M/mm3 (3.60-5.2); RDW 16.9 % (11.6-15.6); WHITE BLOOD COUNT 8.6 K/mm3 (4.0-10.0)
[2023-11-03 08:54] LABS: POTASSIUM 4.3 mmol/L (3.5-5.1)
[2023-11-03 08:58] LABS: ALBUMIN 2.2 g/dl (3.4-5.0); BLOOD UREA NITROGEN 13.8 mg/dL (7-18); CALCIUM 8.2 mg/dL (8.5-10.1)
[2023-11-03 09:02] LABS: CREATININE 0.9 mg/dL (0.55-1.3)
[2023-11-03 09:04] LABS: TOT PROT 5.8 g/dl (6.4-8.2)
[2023-11-03 09:20] LABS: BILIRUBIN,TOTAL 0.2 mg/dL (0.2-1)
[2023-11-03] MEDS: HALOPERIDOL LACTATE 5 MG/ML IM ONE (21:23)
[2023-11-04 09:41] LABS: BASO % 0.2 % (0-2.0); EOS % 1.2 % (0-4.5); HEMATOCRIT 26.8 % (32.4-45.2); HEMOGLOBIN 8.8 GM/dL (10.7-15.3); LYMPH % 41.4 % (8-40); MCH 26.8 pg (25.7-33.7); MEAN CELL VOLUME 81.4 fl (80-96); MEAN PLT VOLUME 7.8 fl (7.5-11.1); MONO % 11.9 % (3.8-10.2); NEUT % 45.3 % (42.8-82.8); PLATELET COUNT 433 10^3/uL (134-434); RBC 3.29 M/mm3 (3.60-5.2); RDW 17.2 % (11.6-15.6); WHITE BLOOD COUNT 7.8 K/mm3 (4.0-10.0)
[2023-11-04 10:05] LABS: POTASSIUM 4.1 mmol/L (3.5-5.1)
[2023-11-04 10:08] LABS: BLOOD UREA NITROGEN 10.7 mg/dL (7-18); CALCIUM 8.7 mg/dL (8.5-10.1)
[2023-11-04 10:11] LABS: CREATININE 0.9 mg/dL (0.55-1.3)
[2023-11-04 10:13] LABS: BILIRUBIN,TOTAL 0.3 mg/dL (0.2-1); N-TERMINAL BNP 265.6 pg/ml (5-125); TOT PROT 6.7 g/dl (6.4-8.2)
[2023-11-04 10:23] LABS: ALBUMIN 2.8 g/dl (3.4-5.0)
[2023-11-04] MEDS: HYDROCHLOROTHIAZIDE 25 MG TABLET (FP) PO SCH (11:36)
[2023-11-04] MEDS: amLODIPine BESYLATE 5 MG TABLET (FP) PO SCH (16:06)
[2023-11-04] MEDS: BISACODYL 10 MG SUPP.RECT PR ONE (18:01)
[2023-11-04] MEDS: ATORVASTATIN CA 40 MG TABLET (FP) PO SCH (21:03)
[2023-11-05] MEDS: LORazepam 1 MG TABLET PO PRN (03:33)
[2023-11-05 09:23] LABS: POTASSIUM 3.8 mmol/L (3.5-5.1)
[2023-11-05 09:25] LABS: ALBUMIN 2.8 g/dl (3.4-5.0)
[2023-11-05 09:26] LABS: BLOOD UREA NITROGEN 14.8 mg/dL (7-18)
[2023-11-05 09:28] LABS: CREATININE 0.8 mg/dL (0.55-1.3)
[2023-11-05 09:29] LABS: CALCIUM 8.7 mg/dL (8.5-10.1)
[2023-11-05 09:30] LABS: BILIRUBIN,TOTAL 0.1 mg/dL (0.2-1); TOT PROT 6.9 g/dl (6.4-8.2)
[2023-11-05 13:50] VITALS: BP 155/104; PULSE 110; RESP 20; TEMP 98
[2023-11-05] MEDS: LOSARTAN POTASSIUM 50 MG TABLET PO SCH (15:00)
== END 2023-11-05 18:58 | disposition home or self-care (01) | DRG 53 ==
LOC: JER 08:18 → JERBED 15:39 → J5S 18:06
PROVIDERS: ADMIT Internal Medicine; ATTEND Internal Medicine
DX: R56.9 Unspecified convulsions (principal); N17.9 Acute kidney failure, unspecified; E87.1 Hypo-osmolality and hyponatremia; F25.0 Schizoaffective disorder, bipolar type; F17.210 Nicotine dependence, cigarettes, uncomplicated; R07.9 Chest pain, unspecified; E66.9 Obesity, unspecified; Z68.32 Body mass index [BMI] 32.0-32.9, adult; K31.84 Gastroparesis; F12.90 Cannabis use, unspecified, uncomplicated; F41.9 Anxiety disorder, unspecified; N20.0 Calculus of kidney
CPT/HCPCS: 0241U-QW; 36415; 70450-TC; 71045-TC-FY; 74176-TC; 76775-TC; 76830-TC; 80053; 80061; 83036; 83605; 83735; 83880; 83970; 84439; 84443; 84484; 84703; 85025; 87040; 93005; 93010; 93225; 93226; 93306-TC; 99285-25; J0131

== ENCOUNTER 2023-11-28 18:51 | Inpatient (IN) | payer OTHER ==
[2023-11-28] MEDS ORDERED: ONDANSETRON 4 MG/2 ML VIAL ONE (19:49)
[2023-11-28] MEDS ORDERED: FAMOTIDINE 20 MG/50 ML IVPB 20 MG/50 ML MG IVPB ONE (19:49)
[2023-11-28] MEDS ORDERED: ACETAMINOPHEN INJECTION 100 ML IVPB ONE (19:49)
[2023-11-28 19:52] LABS: BASO % 0.6 % (0-2.0); EOS % 0.6 % (0-4.5); HEMATOCRIT 25.5 % (32.4-45.2); LYMPH % 25.4 % (8-40); MCHC 31.2 g/dl (32.0-36.0); MEAN CELL VOLUME 76.9 fl (80-96); MEAN PLT VOLUME 6.7 fl (7.5-11.1); NEUT % 63.4 % (42.8-82.8); PLATELET COUNT 811 10^3/uL (134-434); RBC 3.32 M/mm3 (3.60-5.2); RDW 18.7 % (11.6-15.6); WHITE BLOOD COUNT 12.8 K/mm3 (4.0-10.0)
[2023-11-28] MEDS ORDERED: HALOPERIDOL LACTATE 5 MG/ML ONE (19:58)
[2023-11-28 20:02] LABS: INR 1.09 (0.83-1.09); PROTHROMBIN TIME (PATIENT) 12.5 SEC (9.7-13.0)
[2023-11-28] MEDS: ACETAMINOPHEN 1000 MG/100 ML BAG IVPB ONE (20:03)
[2023-11-28 20:04] LABS: ACTIVATED PTT 20.5 SECONDS (25.2-36.5)
[2023-11-28] MEDS: ONDANSETRON 4 MG/2 ML VIAL IVPUSH ONE (20:04)
[2023-11-28] MEDS: SODIUM CHLORIDE 1,000 ML IV STA (20:04)
[2023-11-28] MEDS: HALOPERIDOL LACTATE 5 MG/ML IVPUSH ONE (20:04)
[2023-11-28] MEDS: FAMOTIDINE 20 MG/50 ML IVPB 20 MG/50 ML MG IVPB ONE (20:04)
[2023-11-28 20:17] LABS: POTASSIUM 4.1 mmol/L (3.5-5.1)
[2023-11-28 20:19] LABS: CALCIUM 9.5 mg/dL (8.5-10.1)
[2023-11-28 20:20] LABS: ALBUMIN 3.1 g/dl (3.4-5.0); BLOOD UREA NITROGEN 15.5 mg/dL (7-18); MAGNESIUM 2.1 mg/dL (1.8-2.4)
[2023-11-28 20:23] LABS: CREATININE 0.6 mg/dL (0.55-1.3); PHOSPHOROUS 2.9 mg/dL (2.5-4.9)
[2023-11-28 20:25] LABS: BILIRUBIN,TOTAL 0.2 mg/dL (0.2-1); TOT PROT 7.2 g/dl (6.4-8.2)
[2023-11-28 22:38] LABS: BASO % 0.2 % (0-2.0); EOS % 0.6 % (0-4.5); HEMATOCRIT 22.8 % (32.4-45.2); HEMOGLOBIN 7.1 GM/dL (10.7-15.3); LYMPH % 24.5 % (8-40); MCHC 31.2 g/dl (32.0-36.0); MEAN PLT VOLUME 6.4 fl (7.5-11.1); MONO % 9.6 % (3.8-10.2); NEUT % 65.1 % (42.8-82.8); PLATELET COUNT 702 10^3/uL (134-434); RBC 2.97 M/mm3 (3.60-5.2); RDW 18.4 % (11.6-15.6)
[2023-11-29] MEDS ORDERED: PANTOPRAZOLE SODIUM 40 MG VIAL ONE (01:46)
[2023-11-29] MEDS: PANTOPRAZOLE SODIUM 40 MG VIAL IVPUSH ONE (01:49)
[2023-11-29] MEDS: DEXTROSE 5%-0.45% SALINE 1,000 ML IV SCH (05:23)
[2023-11-29 06:01] VITALS: BMI 32.5
[2023-11-29 07:44] LABS: BASO % 0.5 % (0-2.0); EOS % 1.2 % (0-4.5); HEMATOCRIT 22.3 % (32.4-45.2); HEMOGLOBIN 7.1 GM/dL (10.7-15.3); LYMPH % 31.9 % (8-40); MCH 24.9 pg (25.7-33.7); MCHC 31.9 g/dl (32.0-36.0); MONO % 7.9 % (3.8-10.2); NEUT % 58.5 % (42.8-82.8); PLATELET COUNT 648 10^3/uL (134-434); RBC 2.86 M/mm3 (3.60-5.2); RDW 18.8 % (11.6-15.6); WHITE BLOOD COUNT 9.4 K/mm3 (4.0-10.0)
[2023-11-29] MEDS: amLODIPine BESYLATE 5 MG TABLET (FP) PO SCH (11:39)
[2023-11-29] MEDS: ARIPiprazole 5 MG TABLET PO SCH (11:40)
[2023-11-29] MEDS: PARoxetine HCL 10 MG TABLET PO SCH (11:40)
[2023-11-29] MEDS: PANTOPRAZOLE SODIUM 40 MG VIAL IVPUSH SCH (11:40)
[2023-11-29] MEDS: PANTOPRAZOLE SODIUM 160 MG in SODIUM CHLORIDE 290 ML IVPB SCH (16:54)
[2023-11-29 20:38] LABS: COCAINE, UR POSITIVE (NEGATIVE); METHADONE, UR NEGATIVE (NEGATIVE); OPIATES, URI NEGATIVE (NEGATIVE); PHENCYCLIDINE,URINE NEGATIVE (NEGATIVE); URINE AMPHETAMINES NEGATIVE (NEGATIVE); URINE BARBITURATES NEGATIVE (NEGATIVE); URINE BENZODIAZEPINES NEGATIVE (NEGATIVE)
[2023-11-29] MEDS: QUEtiapine FUMARATE 100 MG TABLET (FP) PO SCH (21:04)
[2023-11-29] MEDS: ATORVASTATIN CA 40 MG TABLET (FP) PO SCH (21:04)
[2023-11-30] MEDS: ACETAMINOPHEN 325 MG TABLET (FP) PO STA (00:23)
[2023-11-30] MEDS ORDERED: ACETAMINOPHEN 325 MG TABLET (FP) PO PRN (05:25)
[2023-11-30] MEDS: ACETAMINOPHEN 325 MG TABLET (FP) PO PRN (05:55)
[2023-11-30 08:33] LABS: BASO % 0.5 % (0-2.0); EOS % 1.4 % (0-4.5); HEMATOCRIT 25.8 % (32.4-45.2); HEMOGLOBIN 8.3 GM/dL (10.7-15.3); LYMPH % 36.8 % (8-40); MCH 25.5 pg (25.7-33.7); MCHC 32.3 g/dl (32.0-36.0); MEAN CELL VOLUME 78.9 fl (80-96); MEAN PLT VOLUME 7.1 fl (7.5-11.1); MONO % 9.8 % (3.8-10.2); NEUT % 51.5 % (42.8-82.8); PLATELET COUNT 672 10^3/uL (134-434); RBC 3.27 M/mm3 (3.60-5.2); RDW 18.3 % (11.6-15.6); WHITE BLOOD COUNT 7.9 K/mm3 (4.0-10.0)
[2023-11-30 09:05] LABS: ALBUMIN 2.8 g/dl (3.4-5.0)
[2023-11-30 09:06] LABS: BLOOD UREA NITROGEN 4.7 mg/dL (7-18); CALCIUM 8.3 mg/dL (8.5-10.1)
[2023-11-30 09:09] LABS: CREATININE 0.7 mg/dL (0.55-1.3)
[2023-11-30 09:10] LABS: BILIRUBIN,TOTAL 0.2 mg/dL (0.2-1); TOT PROT 6.2 g/dl (6.4-8.2)
[2023-11-30] MEDS: cloNIDine HCL 0.1 MG TABLET PO PRN (16:16)
[2023-11-30] MEDS: LURASIDONE HCL 40 MG TABLET PO SCH (17:12)
[2023-12-01 08:29] LABS: BASO % 0.3 % (0-2.0); EOS % 1.3 % (0-4.5); HEMATOCRIT 22.3 % (32.4-45.2); HEMOGLOBIN 7.3 GM/dL (10.7-15.3); LYMPH % 28.5 % (8-40); MCH 25.9 pg (25.7-33.7); MCHC 32.9 g/dl (32.0-36.0); MEAN CELL VOLUME 78.9 fl (80-96); MONO % 12.8 % (3.8-10.2); NEUT % 57.1 % (42.8-82.8); PLATELET COUNT 634 10^3/uL (134-434); RBC 2.83 M/mm3 (3.60-5.2); RDW 19.4 % (11.6-15.6); WHITE BLOOD COUNT 7.7 K/mm3 (4.0-10.0)
[2023-12-02 09:45] LABS: BASO % 0.6 % (0-2.0); EOS % 1.8 % (0-4.5); HEMATOCRIT 26.5 % (32.4-45.2); HEMOGLOBIN 8.4 GM/dL (10.7-15.3); LYMPH % 28.2 % (8-40); MCH 25.2 pg (25.7-33.7); MCHC 31.7 g/dl (32.0-36.0); MEAN CELL VOLUME 79.4 fl (80-96); MEAN PLT VOLUME 7.1 fl (7.5-11.1); MONO % 10.4 % (3.8-10.2); PLATELET COUNT 587 10^3/uL (134-434); RBC 3.34 M/mm3 (3.60-5.2); WHITE BLOOD COUNT 7.8 K/mm3 (4.0-10.0)
[2023-12-02 09:56] LABS: INR 1.11 (0.83-1.09); PROTHROMBIN TIME (PATIENT) 12.7 SEC (9.7-13.0)
[2023-12-02 10:09] LABS: POTASSIUM 4.3 mmol/L (3.5-5.1)
[2023-12-02 10:15] LABS: CALCIUM 8.3 mg/dL (8.5-10.1)
[2023-12-02 10:16] LABS: ALBUMIN 2.3 g/dl (3.4-5.0); BLOOD UREA NITROGEN 11.1 mg/dL (7-18)
[2023-12-02 10:19] LABS: CREATININE 0.8 mg/dL (0.55-1.3)
[2023-12-02 10:21] LABS: TOT PROT 5.4 g/dl (6.4-8.2)
[2023-12-02] MEDS: PANTOPRAZOLE 40 MG TABLET PO SCH (21:13)
[2023-12-03 08:43] VITALS: BP 117/79; PULSE 84; RESP 117; TEMP 99
== END 2023-12-03 11:11 | disposition home or self-care (01) | DRG 243 ==
LOC: JER 18:51 → JERBED 11-29 02:44 → J4W 11-29 05:31
PROVIDERS: ADMIT Internal Medicine; ATTEND Internal Medicine
PROC: 30233N1 Transfusion of Nonautologous Red Blood Cells into Peripheral Vein, Percutaneous Approach (ICD-10-PCS; 2023-11-29)
PROC: 0DB68ZX Excision of Stomach, Via Natural or Artificial Opening Endoscopic, Diagnostic (ICD-10-PCS; principal; 2023-12-02 11:00)
DX: K22.2 Esophageal obstruction (principal); D62 Acute posthemorrhagic anemia; K92.0 Hematemesis; R56.9 Unspecified convulsions; K31.84 Gastroparesis; F12.188 Cannabis abuse with other cannabis-induced disorder; F31.9 Bipolar disorder, unspecified; I10 Essential (primary) hypertension; K20.90 Esophagitis, unspecified without bleeding; K44.9 Diaphragmatic hernia without obstruction or gangrene; K21.9 Gastro-esophageal reflux disease without esophagitis; K29.50 Unspecified chronic gastritis without bleeding
CPT/HCPCS: 0241U-QW; 36415; 36430; 71045-TC-FY; 74177-TC; 74220-TC-FY; 80048; 80053; 80307; 82271; 82550; 83690; 83735; 84100; 84484; 85025; 85610; 85730; 86850; 86900; 86901; 86922; 88305-TC; 93005; 93010; 99285-25; J0131; P9038; P9058; Q9967

== ENCOUNTER 2023-12-06 07:17 | Emergency (ER) | payer OTHER ==
[2023-12-06 07:31] VITALS: BP 118/85; PULSE 108; RESP 18; TEMP 98; BMI 32.8
[2023-12-06] MEDS ORDERED: PANTOPRAZOLE SODIUM 40 MG/100 ML BAG IVPB ONE (08:21)
[2023-12-06] MEDS ORDERED: FAMOTIDINE 20 MG/50 ML IVPB 20 MG/50 ML MG IVPB ONE (08:21)
[2023-12-06] MEDS ORDERED: MAG HYDROX/AL HYDROX/SIMETH 30 ML UNIT-DOSE CUP ONE (08:21)
[2023-12-06] MEDS ORDERED: ACETAMINOPHEN INJECTION 100 ML IVPB ONE (08:21)
[2023-12-06] MEDS ORDERED: HALOPERIDOL LACTATE 5 MG/ML ONE (08:22)
[2023-12-06] MEDS: MAG HYDROX/AL HYDROX/SIMETH 30 ML UNIT-DOSE CUP PO ONE (08:55)
[2023-12-06] MEDS: ACETAMINOPHEN 1000 MG/100 ML BAG IVPB ONE (08:56)
[2023-12-06] MEDS: SODIUM CHLORIDE 0.9% 500 ML INFUS.BAG IV ONE (08:56)
[2023-12-06] MEDS: PANTOPRAZOLE SODIUM 40 MG VIAL IVPUSH ONE (08:56)
[2023-12-06] MEDS: FAMOTIDINE 20 MG/50 ML IVPB 20 MG/50 ML MG IVPB ONE (08:56)
[2023-12-06] MEDS: HALOPERIDOL LACTATE 5 MG/ML IVPUSH ONE (08:56)
[2023-12-06 08:57] LABS: BASO % 0.2 % (0-2.0); EOS % 0.4 % (0-4.5); HEMATOCRIT 32.4 % (32.4-45.2); HEMOGLOBIN 10.6 GM/dL (10.7-15.3); LYMPH % 13.7 % (8-40); MCH 25.9 pg (25.7-33.7); MCHC 32.6 g/dl (32.0-36.0); MEAN CELL VOLUME 79.4 fl (80-96); MEAN PLT VOLUME 6.8 fl (7.5-11.1); MONO % 6.2 % (3.8-10.2); NEUT % 79.5 % (42.8-82.8); PLATELET COUNT 686 10^3/uL (134-434); RBC 4.08 M/mm3 (3.60-5.2); RDW 20.5 % (11.6-15.6); WHITE BLOOD COUNT 9.3 K/mm3 (4.0-10.0)
[2023-12-06 09:16] LABS: POTASSIUM 4.4 mmol/L (3.5-5.1)
[2023-12-06 09:19] LABS: BLOOD UREA NITROGEN 10.6 mg/dL (7-18)
[2023-12-06 09:22] LABS: CREATININE 0.9 mg/dL (0.55-1.3)
[2023-12-06 09:24] LABS: BILIRUBIN,TOTAL 0.4 mg/dL (0.2-1)
[2023-12-06 09:36] LABS: ALBUMIN 3.7 g/dl (3.4-5.0); CALCIUM 10.4 mg/dL (8.5-10.1); TOT PROT 8.2 g/dl (6.4-8.2)
[2023-12-06 09:48] LABS: ANISOCYTOSIS 2+; MACROCYTOSIS 0
== END 2023-12-06 13:24 | disposition home or self-care (01) ==
LOC: JER 07:17
PROC: 3E033NZ Introduction of Analgesics, Hypnotics, Sedatives into Peripheral Vein, Percutaneous Approach (ICD-10-PCS; principal; 2023-12-06)
PROC: 3E033GC Introduction of Other Therapeutic Substance into Peripheral Vein, Percutaneous Approach (ICD-10-PCS; 2023-12-06)
PROC: 3E033GC Introduction of Other Therapeutic Substance into Peripheral Vein, Percutaneous Approach (ICD-10-PCS; 2023-12-06)
DX: R10.13 Epigastric pain (principal); R11.2 Nausea with vomiting, unspecified; K92.1 Melena; R00.0 Tachycardia, unspecified
CPT/HCPCS: 36415; 80053; 82272; 83690; 84484; 85025; 93005; 93010; 99284-25; J0131

== ENCOUNTER 2024-11-19 18:26 | Inpatient (IN) | payer OTHER ==
[2024-11-19 22:18] LABS: ABSOLUTE IMMATURE GRANULOCYTES 0.03 x10^3/uL (0.0-0.031); BASOPHILS # 0.02 x10^3/uL (0.01-0.08); EOSINOPHIL % 1.9 % (0.7-5.8); HEMATOCRIT 17.5 % (34.1-44.9); HEMOGLOBIN 4.8 g/dL (11.2-15.7); MCHC 27.4 g/dl (32.2-35.5); MEAN CELL VOLUME 76.1 fl (79.4-94.8); MONOCYTE # 0.62 x10^3/uL (0.24-0.86); PLATELET COUNT 481 x10^3/uL (182-369); RDW 21.5 % (12.2-17.1)
[2024-11-19 22:25] LABS: INR 1.15 (0.83-1.09); PROTHROMBIN TIME (PATIENT) 12.5 SEC (9.7-13.0)
[2024-11-19 22:28] LABS: ACTIVATED PTT 21.6 SECONDS (25.2-36.5)
[2024-11-19] MEDS ORDERED: HEPARIN INFUSION - 500 ML IVPB SCH (22:30)
[2024-11-19 22:37] LABS: POTASSIUM 4.3 mmol/L (3.5-5.1)
[2024-11-19] MEDS: HEPARIN NA (PORCINE) 5,000 UNITS/ML 1ML VIAL IVPUSH ONE (22:37)
[2024-11-19 22:38] LABS: CALCIUM 9.3 mg/dL (8.5-10.1)
[2024-11-19 22:39] LABS: ALBUMIN 2.5 g/dl (3.4-5.0); BLOOD UREA NITROGEN 10.5 mg/dL (7-18)
[2024-11-19 22:42] LABS: CREATININE 0.9 mg/dL (0.55-1.3)
[2024-11-19 22:44] LABS: BILIRUBIN,TOTAL 0.2 mg/dL (0.2-1); TOT PROT 6.2 g/dl (6.4-8.2)
[2024-11-19] MEDS ORDERED: CEFAZOLIN 1 GM/D5W 1 GM/50 ML BAG ONE (22:45)
[2024-11-19] MEDS: CEFAZOLIN 1 GM in DEXTROSE 5%-WATER - 50 ML IVPB ONE (22:49)
[2024-11-19 23:33] LABS: HCV DIAGNOSTIC IN-HOUSE W/RFLX NON-REACTIVE (NONREACTIVE); HIV INTERPRETATION NEGATIVE (NEGATIVE)
[2024-11-20] MEDS ORDERED: ACETAMINOPHEN INJECTION 100 ML ONE ×2 (00:02→06:49)
[2024-11-20] MEDS: ACETAMINOPHEN 1000 MG/100 ML BAG IVPB ONE ×2 (00:10→06:53)
[2024-11-20 01:01] LABS: HEMATOCRIT 14.4 % (34.1-44.9); HEMOGLOBIN 3.9 g/dL (11.2-15.7); MCHC 27.1 g/dl (32.2-35.5); MEAN PLT VOLUME 9.5 fl (9.4-12.3); PLATELET COUNT 405 x10^3/uL (182-369); RDW 21.4 % (12.2-17.1)
[2024-11-20 04:19] LABS: Reticulocyte % 4.64 % (0.5-1.7)
[2024-11-20 07:11] LABS: MAGNESIUM 1.8 mg/dL (1.8-2.4)
[2024-11-20 07:12] LABS: HEMATOCRIT 18.3 % (34.1-44.9); HEMOGLOBIN 5.3 g/dL (11.2-15.7); MEAN CELL VOLUME 77.9 fl (79.4-94.8); MEAN PLT VOLUME 9.4 fl (9.4-12.3); PLATELET COUNT 410 x10^3/uL (182-369); RDW 21.1 % (12.2-17.1)
[2024-11-20 07:15] LABS: PHOSPHOROUS 3.7 mg/dL (2.5-4.9)
[2024-11-20] MEDS: cloNIDine HCL 0.1 MG TABLET PO PRN (08:12)
[2024-11-20] MEDS: OXcarbazepine 300 MG TABLET (UD) PO SCH (09:48)
[2024-11-20] MEDS: PANTOPRAZOLE 40 MG TABLET PO SCH (09:49)
[2024-11-20] MEDS: oxyCODONE HCL 5 MG TABLET PO PRN (09:50)
[2024-11-20] MEDS ORDERED: QUEtiapine FUMARATE 100 MG TABLET (FP) PO SCH (10:00)
[2024-11-20] MEDS ORDERED: HEPARIN NA (PORCINE) 5,000 UNITS/ML 1ML VIAL IVPUSH PRN ×2 (10:42)
[2024-11-20] MEDS: HEPARIN INFUSION - 25,000 UNITS/500 ML INFUS.BAG IVPB SCH ×3 (11:25→15:35)
[2024-11-20 12:08] LABS: HEMATOCRIT 20.1 % (34.1-44.9); MCHC 29.9 g/dl (32.2-35.5); MEAN CELL VOLUME 80.1 fl (79.4-94.8); MEAN PLT VOLUME 9.5 fl (9.4-12.3); PLATELET COUNT 347 x10^3/uL (182-369); RDW 20.7 % (12.2-17.1)
[2024-11-20] MEDS ORDERED: HEPARIN - 25,000 UNIT in SODIUM CHLORIDE 495 ML IV SCH (15:00)
[2024-11-20] MEDS: MUPIROCIN 2% TOPICAL OINTMENT FOR DECOLONIZATION NS SCH (15:33)
[2024-11-20] MEDS: IRON SUCROSE INJECTION 200 MG in SODIUM CHLORIDE 100 ML IVPB ONE (15:35)
[2024-11-20] MEDS: ACETAMINOPHEN 1000 MG/100 ML BAG IVPB PRN (15:38)
[2024-11-20] MEDS: LURASIDONE HCL 40 MG TABLET PO SCH (17:14)
[2024-11-20 18:13] LABS: HEMATOCRIT 26.7 % (34.1-44.9); HEMOGLOBIN 8.3 g/dL (11.2-15.7); MCHC 31.1 g/dl (32.2-35.5); MEAN CELL VOLUME 78.1 fl (79.4-94.8); MEAN PLT VOLUME 9.3 fl (9.4-12.3); PLATELET COUNT 442 x10^3/uL (182-369); RDW 19.3 % (12.2-17.1)
[2024-11-20] MEDS: DEXMEDETOMIDINE PREMIX 400 MCG/100 ML BAG IVPB SCH (19:31)
[2024-11-20] MEDS: ATORVASTATIN CA 40 MG TABLET (FP) PO SCH (21:29)
[2024-11-20] MEDS: QUEtiapine FUMARATE 100 MG TABLET (FP) PO SCH (21:30)
[2024-11-20] MEDS: CHLORHEXIDINE GLUCONATE 4% CLEANSER FOR DECOLONIZATION TP SCH (21:34)
[2024-11-20 21:37] LABS: HEMATOCRIT 25.8 % (34.1-44.9); HEMOGLOBIN 7.9 g/dL (11.2-15.7); MCHC 30.6 g/dl (32.2-35.5); MEAN CELL VOLUME 78.4 fl (79.4-94.8); MEAN PLT VOLUME 9.3 fl (9.4-12.3); PLATELET COUNT 409 x10^3/uL (182-369); RDW 18.6 % (12.2-17.1)
[2024-11-21 07:17] LABS: ABSOLUTE IMMATURE GRANULOCYTES 0.03 x10^3/uL (0.0-0.031); BASOPHILS # 0.04 x10^3/uL (0.01-0.08); HEMOGLOBIN 7.9 g/dL (11.2-15.7); MEAN CELL VOLUME 78.5 fl (79.4-94.8); MEAN PLT VOLUME 9.6 fl (9.4-12.3)
[2024-11-21 07:19] LABS: EOSINOPHIL % 2.2 % (0.7-5.8); EOSINOPHILS # 0.15 x10^3/uL (0.04-0.36); HEMATOCRIT 25.6 % (34.1-44.9); MCHC 30.9 g/dl (32.2-35.5); MONOCYTE # 0.44 x10^3/uL (0.24-0.86); MONOCYTE % 6.4 % (4.7-12.5); PLATELET COUNT 407 x10^3/uL (182-369); RDW 18.9 % (12.2-17.1)
[2024-11-21 07:37] LABS: POTASSIUM 4.4 mmol/L (3.5-5.1)
[2024-11-21 07:50] LABS: ALBUMIN 2.2 g/dl (3.4-5.0); BLOOD UREA NITROGEN 8.4 mg/dL (7-18); CALCIUM 8.2 mg/dL (8.5-10.1)
[2024-11-21 07:51] LABS: CREATININE 0.9 mg/dL (0.55-1.3)
[2024-11-21 07:52] LABS: BILIRUBIN,TOTAL 0.3 mg/dL (0.2-1); TOT PROT 5.5 g/dl (6.4-8.2)
[2024-11-21 08:36] LABS: URINE APPEARANCE CLEAR; URINE BILIRUBIN NEGATIVE (NEGATIVE); URINE COLOR YELLOW; URINE GLUCOSE (UA) NEGATIVE (NEGATIVE); URINE KETONE NEGATIVE (NEGATIVE); URINE LEUK ESTERASE NEGATIVE (NEGATIVE); URINE NITRITE NEGATIVE (NEGATIVE); URINE PROTEIN NEGATIVE (NEGATIVE); URINE UROBILINOGEN 0.2 mg/dL (0.2-1.0)
[2024-11-21 09:36] VITALS: RESP 16
[2024-11-21 12:01] VITALS: BMI 33.1
[2024-11-21 12:57] VITALS: BP 128/89; PULSE 79; TEMP 98.4
[2024-11-21] MEDS ORDERED: HEPARIN NA (PORCINE) 5,000 UNITS/ML 1ML VIAL SQ SCH (14:00)
[2024-11-21] MEDS ORDERED: LORazepam 2 MG TABLET PO PRN (14:35)
[2024-11-21] MEDS ORDERED: LORazepam 2 MG/ML SDV VIAL ONE (14:38)
[2024-11-21] MEDS ORDERED: HALOPERIDOL LACTATE 5 MG/ML ONE (14:40)
[2024-11-21] MEDS: HALOPERIDOL LACTATE 5 MG/ML IM ONE (14:43)
[2024-11-21] MEDS: LORazepam 2 MG/ML SDV VIAL IVPUSH PRN (14:43)
[2024-11-21] MEDS: IRON SUCROSE INJECTION 200 MG in SODIUM CHLORIDE 100 ML IVPB ONE (15:16)
[2024-11-21] MEDS: NICOTINE 21 MG/24 HOURS TOPICAL PATCH TD SCH (15:16)
[2024-11-21] MEDS: LORazepam 1 MG TABLET PO PRN (15:39)
[2024-11-21] MEDS ORDERED: ENOXAPARIN NA (PORCINE) 80 MG/0.8 ML DISP.SYRIN SQ SCH (22:00)
== END 2024-11-21 17:03 | disposition left against medical advice (07) | DRG 300 ==
LOC: JER 18:26 → JERBED 22:20 → J4W 11-20 08:02 → JICU 11-20 14:51
PROVIDERS: ADMIT Internal Medicine; ATTEND Internal Medicine
DX: I82.422 Acute embolism and thrombosis of left iliac vein (principal); D62 Acute posthemorrhagic anemia; I10 Essential (primary) hypertension; F31.9 Bipolar disorder, unspecified; G40.909 Epilepsy, unspecified, not intractable, without status epilepticus; F25.9 Schizoaffective disorder, unspecified; K21.9 Gastro-esophageal reflux disease without esophagitis; E66.9 Obesity, unspecified
CPT/HCPCS: 36415; 36430; 71045-TC-FY; 75635-TC; 80053; 81003; 82272; 82550; 82728; 83540; 83550; 83605; 83615; 83735; 83874; 84100; 84703; 85025; 85027; 85610; 85730; 86803; 86922; 87389; 93005; 93010; 93970-TC; 99291; J0131; J1644; J1756; P9038; P9058